=== PATIENT | male | born 1980 | race American Indian/Alaskan Native ===

== ENCOUNTER 2019-04-02 20:29 | Emergency (ER) | payer OTHER, SELFPAY ==
[2019-04-02 20:37] VITALS: BP 150/99; PULSE 113; RESP 20; TEMP 37.1; O2SAT 98; BMI 32.5
--- NOTE | 2019-04-02 20:39 | ED_ITS ---
HPI - Abdominal Pain <DAIANA Paul - Last Filed: 04/02/19 20:54> General Chief Complaint: Abdominal Pain Stated Complaint: lower right abdominal pain Time Seen by Provider: 04/02/19 20:37 Source: patient Mode of arrival: Ambulatory Limitations: no limitations History of Present Illness HPI narrative: 38-year-old male who smokes tabacco, presents emergency department complaining of right lower quadrant abdominal pain starting today. He states last week and a few times this week he had intermittent right flank pain that resolved. 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 He states the pain is a dull aching 7/10 that is worse with movement, walking, and pressing on the area. He denies any fevers, chills, nausea, vomiting, diarrhea, history of abdominal disease or surgeries, chest pain, shortness of breath, history of kidney stones, hematuria, melena, or other concerns. He denies ever having a colonoscopy. Related Data Previous Rx's Medication Instructions Recorded amoxicillin-pot clavulanate 1 tab PO Q12H #20 tab 04/02/19 [Augmentin] Allergies Allergy/AdvReac Type Severity Reaction Status Date / Time No Known Drug Allergies Allergy Verified 04/02/19 20:37 Review of Systems <DAIANA Paul - Last Filed: 04/02/19 20:54> Review of Systems Narrative: REVIEW OF SYSTEMS: GENERAL: Denies fever, chills, malaise, or wt. loss. HENT: No head trauma, sore throat, or dysphagia. EYES: No loss of vision, double vision, eye pain, or irritation. CARDIOVASCULAR: No chest pain, palpitations, or orthopnea. RESPIRATORY: No shortness of breath or cough. GASTROINTESTINAL: Complains of RLQ abdominal pain, see HPI GENITOURINARY: No flank pain, urinary incontinence, hesitancy, frequency, or dysuria. MUSCULOSKELETAL: No pain, weakness, or trauma. INTEGUMENTARY: No rash, lesions, or pruritus. NEURO: No numbness, tingling, memory loss, confusion, or headaches. PSYCH: No behavior or mood changes. Patient History <DAIANA Paul - Last Filed: 04/02/19 20:54> Medical History No significant medical problems (Acute) Social History Smoking Status: Current every day smoker Smoking Status: Current every day smoker alcohol intake frequency: a few times a week Substance Use Type: does not use Exam <DAIANA Paul - Last Filed: 04/02/19 20:54> Initial Vital Signs Initial Vital Signs: Vital Signs Temperature 98.7 F 04/02/19 20:37 Pulse Rate 113 H 04/02/19 20:37 Respiratory Rate 04/02/19 20:37 Blood Pressure 150/99 H 04/02/19 20:37 Pulse Oximetry 98 04/02/19 20:37 PHYSICAL EXAMINATION: GENERAL: Well groomed, alert, and cooperative. Answers questions promptly and appropriately. Vital signs noted. HENT: Normocephalic, atraumatic. Hearing intact. Oral mucosa is pink and moist. EYES: Conjunctiva pink, sclera white, no periorbital swelling. CARDIOVASCULAR: S1 and S2 sounds normal. Regular rate and rhythm, no murmurs, clicks, or bruits. No pedal edema. RESPIRATORY: Normal respiratory rate, trachea midline, airway patent. No stridor, nasal flaring or accessory muscle use. Lungs are clear in all zhao without wheeze, rhonchi, or crackles. GASTROINTESTINAL: Bowel sounds normoactive. Right lower quadrant pain with palp ation, no rebound tenderness, negative Pascual sign. Patient was guarding from pain while getting on and off stretcher. GENITALURINARY: No flank tenderness. MUSCULOSKELETAL: Normal gait and coordination. Equal tone and mass bilaterally. EXTREMITIES: CMS intact, no pedal edema. SKIN: Warm, dry, soft, appropriate color for ethnicity. No lesions, rashes, or wounds to visualized areas. NEURO: Alert and Oriented X 3. Good coordination. No ataxia, or sensory deficits, or cognitive issues. PSYCH: Appropriate affect and mood. <Dang Ordaz DO - Last Filed: 04/03/19 01:16> Initial Vital Signs Initial Vital Signs: Vital Signs Temperature 98.7 F 04/02/19 20:37 Pulse Rate 113 H 04/02/19 20:37 Respiratory Rate 04/02/19 20:37 Blood Pressure 150/99 H 04/02/19 20:37 Pulse Oximetry 98 04/02/19 20:37 Course <Marimar SpearsDAIANA - Last Filed: 04/02/19 20:54> Orders Ordered: ED Orders 04/02/19 20:38 CT abdomen pelvis w con Stat 04/02/19 20:45 Complete Blood Count AUTO DIFF Stat Comprehensive Metabolic Panel Stat Lipase Stat Partial Thromboplastin Time Stat Prothrombin Time INR Stat Discontinued Medications Hydrocodone Bitart/Acetaminophen (Vicodin 5/325 Prepack) 1 bottle MISC SEEINSTR ONE Stop: 04/02/19 22:28 Last Admin: 04/02/19 22:33 Dose: 1 bottle Documented by: RICKIE Amoxicillin/Clavulanate Potassium (Augmentin 875-125 Mg) 1 tab PO NOW ONE Stop: 04/02/19 22:28 Last Admin: 04/02/19 22:34 Dose: 1 tab Documented by: RICKIE Amoxicillin/Clavulanate Potassium (Augmentin 875-125 Mg) 1 tab PO NOW ONE Stop: 04/02/19 22:28 Last Admin: 04/02/19 22:34 Dose: 1 tab Documented by: RICKIE Sodium Chloride (Normal Saline 0.9%) 1,000 mls @ 1,000 mls/hr IV BOLUS ONE Stop: 04/02/19 21:37 Last Infusion: 04/02/19 22:38 Dose: 0 mls/hr Documented by: Admin: 04/02/19 20:52 Dose: 1,000 mls/hr Documented by: RICKIE Ketorolac Tromethamine (Toradol) 30 mg IV NOW ONE Stop: 04/02/19 20:48 Last Admin: 04/02/19 20:54 Dose: 30 mg Documented by: RICKIE Vital Signs Vital signs: Vital Signs - 8 hr 04/02/19 20:37 04/02/19 21:00 04/02/19 22:06 Temperature 98.7 F Pulse Rate 113 H 97 H 87 Respiratory Rate 20 23 12 Blood Pressure 150/99 H Blood Pressure [Left Arm] 128/106 H 126/82 Pulse Oximetry 98 99 100 04/02/19 22:31 Temperature Pulse Rate 89 Respiratory Rate 16 Blood Pressure Blood Pressure [Left Arm] 125/85 Pulse Oximetry 100 <Dang Ordaz DO - Last Filed: 04/03/19 01:16> Orders Ordered: ED Orders 04/02/19 20:38 CT abdomen pelvis w con Stat 04/02/19 20:45 Complete Blood Count AUTO DIFF Stat Comprehensive Metabolic Panel Stat Lipase Stat Partial Thromboplastin Time Stat Prothrombin Time INR Stat Discontinued Medications Hydrocodone Bitart/Acetaminophen (Vicodin 5/325 Prepack) 1 bottle MISC SEEINSTR ONE Stop: 04/02/19 22:28 Last Admin: 04/02/19 22:33 Dose: 1 bottle Documented by: RICKIE Amoxicillin/Clavulanate Potassium (Augmentin 875-125 Mg) 1 tab PO NOW ONE Stop: 04/02/19 22:28 Last Admin: 04/02/19 22:34 Dose: 1 tab Documented by: RICKIE Amoxicillin/Clavulanate Potassium (Augmentin 875-125 Mg) 1 tab PO NOW ONE Stop: 04/02/19 22:28 Last Admin: 04/02/19 22:34 Dose: 1 tab Documented by: RICKIE Sodium Chloride (Normal Saline 0.9%) 1,000 mls @ 1,000 mls/hr IV BOLUS ONE Stop: 04/02/19 21:37 Last Infusion: 04/02/19 22:38 Dose: 0 mls/hr Documented by: Admin: 04/02/19 20:52 Dose: 1,000 mls/hr Documented by: RICKIE Ketorolac Tromethamine (Toradol) 30 mg IV NOW ONE Stop: 04/02/19 20:48 Last Admin: 04/02/19 20:54 Dose: 30 mg Documented by: RICKIE Vital Signs Vital signs: Vital Signs - 8 hr 04/02/19 20:37 04/02/19 21:00 04/02/19 22:06 Temperature 98.7 F Pulse Rate 113 H 97 H 87 Respiratory Rate 20 23 12 Blood Pressure 150/99 H Blood Pressure [Left Arm] 128/106 H 126/82 Pulse Oximetry 98 99 100 04/02/19 22:31 Temperature Pulse Rate 89 Respiratory Rate 16 Blood Pressure Blood Pressure [Left Arm] 125/85 Pulse Oximetry 100 MDM - Abdominal Pain <DAIANA Paul - Last Filed: 04/02/19 20:54> Lab Data Result diagrams: 04/02/19 20:45 04/02/19 20:45 Labs: Lab Results 04/02/19 04/02/19 04/02/19 Range/Units 20:45 20:45 20:45 WBC 9.2 (4.5-11.0) X10^3/uL RBC 4.97 (4.5-5.9) X10^6/uL Hgb 15.6 (13.5-17.5) g/dL Hct 44.8 (41-53) % MCV 90.2 (80-100) fL MCH 31.4 (26-34) PG MCHC 34.8 (30-36) % RDW 13.3 (11.6-14.8) % Plt Count 234 (150-400) X10^3/uL Neut % (Auto) 70.4 (50-75) % Lymph % (Auto) 19.5 L (25-40) % Woods % (Auto) 7.6 (3-14) % Eos % (Auto) 1.5 L (2-4) % Baso % (Auto) 1.0 (0-2) % Neut # (Auto) 6500 (6841-3979) /uL Lymph # (Auto) 1800 (1043-5783) /uL Woods # (Auto) 700 (0-900) /uL Eos # (Auto) 100 (0-450) /uL Baso # (Auto) 100 (0-100) /uL PT 11.2 (10.1-12.7) SECONDS INR 1.0 (0.9-1.3) APTT 31 (26.4-36.2) SECONDS Sodium 139 (137-145) mmol/L Potassium 4.2 (3.4-5.1) mmol/L Chloride 103 (98-107) mmol/L Carbon Dioxide 27 (22-32) mmol/L BUN 12 (9-20) mg/dL Creatinine 0.60 L (0.66-1.25) mg/dL Estimated GFR > 60.0 (>60) mL/min BUN/Creatinine Ratio 20.0 (6-22) Glucose 91 (70-100) mg/dL Calcium 9.3 (8.4-10.2) mg/dL Total Bilirubin 0.5 (0.2-1.3) mg/dL AST 28 (17-59) IU/L ALT 32 (<50) IU/L Alkaline Phosphatase 98 (38-126) U/L Total Protein 8.0 (6.3-8.2) g/dL Albumin 4.4 (3.5-5.0) g/dL Globulin 3.6 (1.7-4.1) g/dL Albumin/Globulin Ratio 1.2 (1.0-2.8) Lipase 84 (23-300) U/L <Dang Ordaz, DO - Last Filed: 04/03/19 01:16> Lab Data Attestation: I reviewed the patient's lab results. Labs: Lab Results 04/02/19 04/02/19 04/02/19 Range/Units 20:45 20:45 20:45 WBC 9.2 (4.5-11.0) X10^3/uL RBC 4.97 (4.5-5.9) X10^6/uL Hgb 15.6 (13.5-17.5) g/dL Hct 44.8 (41-53) % MCV 90.2 (80-100) fL MCH 31.4 (26-34) PG MCHC 34.8 (30-36) % RDW 13.3 (11.6-14.8) % Plt Count 234 (150-400) X10^3/uL Neut % (Auto) 70.4 (50-75) % Lymph % (Auto) 19.5 L (25-40) % Woods % (Auto) 7.6 (3-14) % Eos % (Auto) 1.5 L (2-4) % Baso % (Auto) 1.0 (0-2) % Neut # (Auto) 6500 (7733-8797) /uL Lymph # (Auto) 1800 (7534-5251) /uL Woods # (Auto) 700 (0-900) /uL Eos # (Auto) 100 (0-450) /uL Baso # (Auto) 100 (0-100) /uL PT 11.2 (10.1-12.7) SECONDS INR 1.0 (0.9-1.3) APTT 31 (26.4-36.2) SECONDS Sodium 139 (137-145) mmol/L Potassium 4.2 (3.4-5.1) mmol/L Chloride 103 (98-107) mmol/L Carbon Dioxide 27 (22-32) mmol/L BUN 12 (9-20) mg/dL Creatinine 0.60 L (0.66-1.25) mg/dL Estimated GFR > 60.0 (>60) mL/min BUN/Creatinine Ratio 20.0 (6-22) Glucose 91 (70-100) mg/dL Calcium 9.3 (8.4-10.2) mg/dL Total Bilirubin 0.5 (0.2-1.3) mg/dL AST 28 (17-59) IU/L ALT 32 (<50) IU/L Alkaline Phosphatase 98 (38-126) U/L Total Protein 8.0 (6.3-8.2) g/dL Albumin 4.4 (3.5-5.0) g/dL Globulin 3.6 (1.7-4.1) g/dL Albumin/Globulin Ratio 1.2 (1.0-2.8) Lipase 84 (23-300) U/L Imaging Data CT scan - abdomen/pelvis: Radiologist's Impression: [place] [address] CT Scan Report Signed Patient: David Rodriguez#: [id number] : 1980Acct:[id number] Age/Sex: 38 / MDate of Service: 04/02/19 Loc: ED Accession Number: [id number] Procedure: CT abdomen pelvis w con Ordering Provider: Marimar Spears PROCEDURE: CT ABDOMEN PELVIS W CON INDICATIONS: RLQ pain, intermittent R flank pain before RLQ pain TECHNIQUE: After the administration of intravenous contrast, 5 mm thick sections acquired from the diaphragm to the symphysis. 5 mm coronal and sagittal reformats were acquired. For radiation dose reduction, the following was used: automated exposure control, adjustment of mA and/or kV according to patient size. COMPARISON: None. FINDINGS: Image quality: Excellent. ABDOMEN: Lung bases: Lung bases are clear. Heart size is normal. Solid organs: Liver is normal in size and enhancemen. Hepatic steatosis is seen. Gallbladder is within normal limits. Biliary system is non dilated. Pancreas enhances normally. Spleen is normal in size and enhancement. No adrenal nodules. Kidneys demonstrate normal size and enhancement, without hydronephrosis. Peritoneum and bowel: There is no bowel obstruction. Diverticular disease involving ascending colon is seen with pericolonic fat stranding and wall thickening suggestive of diverticulitis involving ascending colon. Appendix is visualized and is within normal limits. There is no free fluid or free air. No other area of abnormal bowel wall thickening. Nodes and vessels: No retroperitoneal or mesenteric adenopathy by size criteria. Aorta and inferior vena cava are normal in size. Miscellaneous: No ventral hernias. PELVIS: Genitourinary: Bladder wall thickness is normal. Miscellaneous: No inguinal hernias or adenopathy. Bones: No suspicious bony lesions. No vertebral body compression fractures. IMPRESSION: 1. Finding is suggestive of acute diverticulitis involving proximal ascending colon near ileocecal junction. No abscess collection. No free fluid or free air. 2. Normal appendix. No bowel obstruction. 3. Hepatic steatosis. Dictated by: Milton Mora M.D. on 04/02/2019 at 21:58 Approved by: Milton Mora M.D. on 04/02/2019 at 22:01 [facility] Narrative Medical decision making narrative: Patient signed out to myself by TOMASZ Spears, patient comes in with right lower quadrant pain that started in the last 12 hours. Patient does appear uncomfortable on exam. Patient's labs show, normal CBC, CMP and coags. CT of abdomen pelvis shows diverticulitis colon near the ileocecal junction with no abscess, no free fluid or free air. A normal appendix. Patient does have hepatic steatosis. Discussed with patient plan for oral antibiotics as he does not show any signs of sepsis or changes on his imaging suggesting need for inpatient hospitalization. Short course of narcotics with a prepack of [place]. And patient to return if worsening symptoms, strict return precautions were discussed with patient and he is agreeable. He is feeling somewhat better after Toradol. Discharge Plan Departure Patient Disposition: Home Clinical Impression: Diverticulitis Discharge Date/Time: 04/02/19 22:49 Instructions: DI for Diverticulitis Activity Restrictions/Additional Instructions: Follow up in 3-5 days for recheck if your symptoms are not resolving. Take antibiotics until completely gone. Take next dose of of antibiotics 12 hours after your first dose. Take pain medication as prescribed, this medication can make you sleepy do not drive, perform hazardous activities or make any major decisions while taking it. Return to the ER for fevers greater 100.4 F, rapidly worsening pain in her abdomen, flank or chest, lightheadedness, passing out, persistent vomiting, black or bloody stools or other new or concerning symptoms. Prescriptions: New amoxicillin-pot clavulanate [Augmentin] 875-125 mg tablet 1 tab PO Q12H Qty: 20 RF: 0
[2019-04-02] MEDS: SODIUM CHLORIDE 0.9% 1,000 ML 1000 ML IV (20:52)
[2019-04-02 20:54] LABS: Add Manual Diff / Slide Review NO; Basophils Absolute Auto 100 /uL (0-100); Eosinophils Absolute Auto 100 /uL (0-450); Eosinophils Percent Auto 1.5 % (2-4); Hematocrit 44.8 % (41-53); Hemoglobin 15.6 g/dL (13.5-17.5); Lymphocytes Absolute Auto 1800 /uL (1100-4500); Lymphocytes Percent Auto 19.5 % (25-40); Mean Corpuscular HGB Conc 34.8 % (30-36); Mean Corpuscular Hemoglobin 31.4 PG (26-34); Mean Corpuscular Volume 90.2 fL (80-100); Monocytes Absolute Auto 700 /uL (0-900); Monocytes Percent Auto 7.6 % (3-14); Neutrophils Absolute Auto 6500 /uL (1500-7000); Neutrophils Percent Auto 70.4 % (50-75); Platelet Count 234 X10^3/uL (150-400); Red Blood Cell Count 4.97 X10^6/uL (4.5-5.9); Red Cell Distribution Width 13.3 % (11.6-14.8); White Blood Cell Count 9.2 X10^3/uL (4.5-11.0)
[2019-04-02] MEDS: KETOROLAC 60 MG/2 ML VIAL 30 MG IV (20:54)
[2019-04-02 21:00] VITALS: BP 128/106; PULSE 97; RESP 23; O2SAT 99
[2019-04-02 21:01] LABS: Prothrombin Time 11.2 SECONDS (10.1-12.7)
[2019-04-02 21:04] LABS: PTT Partial Thromboplastin Tim 31 SECONDS (26.4-36.2)
[2019-04-02 21:14] LABS: Alanine Aminotransferase 32 IU/L (<50); Albumin 4.4 g/dL (3.5-5.0); Albumin Globulin Ratio 1.2 (1.0-2.8); Alkaline Phosphatase 98 U/L (38-126); Aspartate Aminotransferase 28 IU/L (17-59); Bilirubin Total 0.5 mg/dL (0.2-1.3); Blood Urea Nitrogen 12 mg/dL (9-20); Calcium 9.3 mg/dL (8.4-10.2); Carbon Dioxide 27 mmol/L (22-32); Chloride 103 mmol/L (98-107); Estimated Glomerular Filt Rate > 60.0 mL/min (>60); Globulin 3.6 g/dL (1.7-4.1); Glucose 91 mg/dL (70-100); HEMOLYSIS < 15 (0-50); Potassium 4.2 mmol/L (3.4-5.1); Sodium 139 mmol/L (137-145)
[2019-04-02 21:16] LABS: Lipase 84 U/L (23-300)
[2019-04-02 22:06] VITALS: BP 126/82; PULSE 87; RESP 12; O2SAT 100
[2019-04-02 22:31] VITALS: BP 125/85; PULSE 89; RESP 16; O2SAT 100
[2019-04-02] MEDS: HYDROCODONE/ACET 5/325 PREPACK 1 BOTTLE MISC (22:33)
[2019-04-02] MEDS: AMOXICILLIN/CLAV 875/125 MG 1 TAB PO ×2 (22:34)
== END 2019-04-02 22:49 | disposition home or self-care (01) ==
PROVIDERS: Nurse Practitioner; Emergency Provider Emergency Medicine
DX: K57.92 Diverticulitis of intestine, part unspecified, without perforation or abscess without bleeding (principal); K76.0 Fatty (change of) liver, not elsewhere classified
CPT/HCPCS: 36415; 74177; 80053; 83690; 85025; 85610; 85730; 96361; 96374; 99284; J1885; Q9967

== ENCOUNTER 2020-01-30 19:27 | Emergency (ER) | payer SELFPAY ==
[2020-01-30 19:56] VITALS: BP 113/73; PULSE 104; RESP 18; TEMP 36.1; O2SAT 98; BMI 29.9
== END 2020-01-30 22:44 | disposition left against medical advice (07) ==
PROVIDERS: Emergency Provider Emergency Medicine
DX: R07.9 Chest pain, unspecified (principal)
CPT/HCPCS: 93005; 99281

== ENCOUNTER 2020-05-18 19:18 | Emergency (ER) | payer SELFPAY ==
[2020-05-18 19:23] VITALS: BP 133/68; PULSE 94; RESP 16; TEMP 36.1; O2SAT 97; BMI 29.9
--- NOTE | 2020-05-18 19:25 | DI.RAD.S_ITS ---
PROCEDURE: XR ANKLE LT MIN 3V INDICATIONS: rolled ankle, intoxicated TECHNIQUE: 3 views of the ankle were acquired. COMPARISON: None. FINDINGS: Bones: No fractures or dislocations. Ankle mortise is normally aligned. No suspicious bony lesions. Soft tissues: Lateral soft tissue swelling IMPRESSION: Lateral soft tissue swelling. No fracture. If the patient's symptoms do not improve recommend followup radiographs in 10 days to assess for healing sclerosis/occult injury. Dictated by: Rashad Soto M.D. on 05/18/2020 at 19:47 Approved by: Rashad Soto M.D. on 05/18/2020 at 19:48
--- NOTE | 2020-05-19 05:01 | ED.LOWEXIN ---
HPI - Extremity Injury (Lower) General Chief Complaint: Extremity Injury, Lower Stated Complaint: ETOH intoxication, left ankle injury Source: EMS Mode of arrival: EMS Limitations: no limitations History of Present Illness HPI Narrative: Patient left department prior to formal evaluation. Patient was seen initially on arrival with EMS. He is intoxicated but alert and appropriate. Patient was working on his vehicle when he rolled his ankle. He did not have any other trauma or injuries. He is otherwise healthy. Related Data Previous Rx's Medication Instructions Recorded amoxicillin-pot clavulanate 1 tab PO Q12H #20 tab 04/02/19 [Augmentin] Allergies Allergy/AdvReac Type Severity Reaction Status Date / Time No Known Drug Allergies Allergy Verified 04/02/19 20:37 Patient History Medical History (Updated 05/18/20 @ 20:58 by Mendez Gill RN) No significant medical problems Social History Smoking Status: Current every day smoker Smoking Status: Current every day smoker alcohol intake frequency: a few times a week Substance Use Type: does not use Exam Narrative Exam Narrative: GENERAL: Alert and oriented, well-appearing male. Patient appears mildly intoxicated. Initially on gurney and later seated in chair and speaking on his phone. HEENT: Head normocephalic, atraumatic, EOMI, pupils reactive, face symmetric, moist mucous membranes NECK: Supple, full range of motion NEUROLOGICAL: Cranial nerves II through XII grossly intact. Moving all extremities. Initial Vital Signs Initial Vital Signs: Vital Signs Temperature 97 F L 05/18/20 19:23 Pulse Rate 94 H 05/18/20 19:23 Respiratory Rate 16 05/18/20 19:23 Blood Pressure 133/68 05/18/20 19:23 Pulse Oximetry 97 05/18/20 19:23 MDM - Extremity Injury (Lower) Imaging Data Extremity x-ray #1: Radiologist's Impression: [address] [id number] ReportSigned Patient: Davdi Rodriguez#: [id number]: 1980Acct:[id number]/Sex: 39 / MDate of Service: 05/18/20Loc: EDAccession Number: [id number] Procedure: XR ankle LT min 3V Ordering Provider: Dang Ordaz D.O. PROCEDURE: XR ANKLE LT MIN 3V INDICATIONS: rolled ankle, intoxicated TECHNIQUE: 3 views of the ankle were acquired. COMPARISON: None. FINDINGS: Bones: No fractures or dislocations. Ankle mortise is normally aligned. No suspicious bony lesions. Soft tissues: Lateral soft tissue swelling IMPRESSION: Lateral soft tissue swelling. No fracture. If the patient's symptoms do not improve recommend followup radiographs in 10 days to assess for healing sclerosis/occult injury. Dictated by: Rashad Soto M.D. on 05/18/2020 at 19:47 Approved by: Rashad Soto M.D. on 05/18/2020 at 19:48 Discharge Plan Departure Patient Disposition: Left Without Being Seen Clinical Impression: Patient left without being seen
== END 2020-05-18 20:57 | disposition left against medical advice (07) ==
PROVIDERS: Emergency Provider Emergency Medicine
DX: S99.912A Unspecified injury of left ankle, initial encounter (principal); X50.1XXA Overexertion from prolonged static or awkward postures, initial encounter; F10.129 Alcohol abuse with intoxication, unspecified
CPT/HCPCS: 73610; 99283

== ENCOUNTER 2023-11-22 18:47 | Emergency (ER) | payer SELFPAY ==
[2023-11-22 18:56] VITALS: BP 125/69; PULSE 95; RESP 18; TEMP 37.1; O2SAT 97; BMI 27.4
--- NOTE | 2023-11-22 19:10 | CM.SWNOTE ---
ED PUMP INSTALLATION AND SERVICER Assessment Note Patient is 43 y/o male who presents to ED due to concern for seeking ETOH detox. Patient states he walked here. Patient states he has been missing work and he called the crisis line and decided to seek help and come to the ED. Patient endorses hx of SI yesterday, he states that he called his friends and they were a support to him. Patient denies current SI. Patient states I feel like a piece of shit and I want want to take care of my life. PUMP INSTALLATION AND SERVICER enters triage to meet with patient. Patient presents as A/Ox4, calm, cooperative and communicative. Patient denies SI and HI. Patient states that he has been drinking a lot during the week, more than usual because of the holiday weekend. Patient states he drank whiskey, vodka, Tequila and beer. Patient states he usually just drinks 2-3 23 ounce beers a day. Patient endorses hx of anxiety and high heart rate withdrawal symptoms. Patient denies hx of seizures. Patient endorses hx of 2 years of sobriety a couple years ago. Patient states hx of just quitting on his home and through the courts. Patient endorses hx of 6 DUIs 12 years ago. Patient endorses hx of several inpatient rehab stays most recently 10 years ago. Patient denies any current outpatient SIDNEY and MH providers, patient states he has access to [facility] and states that he had it set up in the past but he did not go. Patient denies hx of any other substance use other than cigarette use. Patient endorses that no one knows he is here but would like his fiance to be contacted to let her know (Evonne - Ph. # [phone]) Patient endorses he works for [employer] and they know he is here getting help and are supportive of patient seeking treatment. Patient endorses he is seeking detox treatment. It is the opinion of this PUMP INSTALLATION AND SERVICER that patient is appropriate for and will benefit from detox treatment upon medical clearance. Plan: ED team to seek detox placement for patient upon medical clearance. SURGICAL APPLIANCES SALESPERSON states that she called [facility] and they do not have male beds at this time. ED team to seek detox elsewhere. Jennifer Roberts, SUBCONTRACT MANAGER
[2023-11-22 19:31] LABS: Add Manual Diff / Slide Review NO; Basophils Absolute Auto 100 /uL (0-100); Basophils Percent Auto 2.9 % (0-2); Eosinophils Absolute Auto 100 /uL (0-450); Eosinophils Percent Auto 1.9 % (2-4); Hematocrit 42.2 % (41-53); Hemoglobin 14.3 g/dL (13.5-17.5); Lymphocytes Absolute Auto 2000 /uL (1100-4500); Mean Corpuscular HGB Conc 33.9 % (30-36); Mean Corpuscular Hemoglobin 31.2 PG (26-34); Mean Corpuscular Volume 92.1 fL (80-100); Monocytes Absolute Auto 500 /uL (0-900); Monocytes Percent Auto 10.4 % (3-14); Neutrophils Absolute Auto 2200 /uL (1500-7000); Neutrophils Percent Auto 43.8 % (50-75); Platelet Count 187 X10^3/uL (150-400); Red Blood Cell Count 4.58 X10^6/uL (4.5-5.9); White Blood Cell Count 4.9 X10^3/uL (4.5-11.0)
[2023-11-22 19:39] LABS: UR Morphine/Opiate cutoff 300 Negative (Negative); Ur Creatinine Normal (Normal); Ur Specific Gravity Normal (Normal); Urine Amphetamines Negative (Negative); Urine Barbiturates Negative (Negative); Urine Benzodiazepines Negative (Negative); Urine Cocaine Negative (Negative); Urine MDMA Negative (Negative); Urine Methadone Negative (Negative); Urine Methamphetamines Negative (Negative); Urine Oxycodone Negative (Negative); Urine Phencyclidine Negative (Negative); Urine Tetrahydrocannabinol Negative (Negative); Urine Tricyclic Antidepressant Negative (Negative); Urine pH Normal (Normal)
[2023-11-22 19:48] LABS: Acetaminophen < 10 ug/mL (10-30); Alanine Aminotransferase 31 IU/L (<50); Albumin 4.7 g/dL (3.5-5.0); Albumin Globulin Ratio 1.3 (1.0-2.8); Alkaline Phosphatase 63 U/L (38-126); Aspartate Aminotransferase 37 IU/L (17-59); BUN Creatinine Ratio 7.5 (6-22); Bilirubin Total 0.5 mg/dL (0.2-1.3); Blood Urea Nitrogen 5 mg/dL (9-20); Calcium 9.1 mg/dL (8.4-10.2); Carbon Dioxide 27 mmol/L (22-32); Chloride 101 mmol/L (98-107); Estimated Glomerular Filt Rate > 60 mL/min (>60); Ethanol (ETOH) 284 mg/dL; Globulin 3.7 g/dL (1.7-4.1); Glucose 95 mg/dL (70-100); HEMOLYSIS < 15 (0-50); Potassium 4.3 mmol/L (3.4-5.1); Salicylate < 1.0 mg/dL (<20); Sodium 138 mmol/L (137-145); Total Protein 8.4 g/dL (6.3-8.2)
[2023-11-22 20:13] LABS: Free T4, Direct Thyroxine 0.93 ng/dL (0.78-2.19)
[2023-11-22 20:27] LABS: Thyroid Stimulating Hormone 0.898 uIU/mL (0.47-4.68)
--- NOTE | 2023-11-22 21:29 | ED.ALCOHOL ---
HPI - Alcohol General Chief Complaint: Toxicology Problem Stated Complaint: wants to detox from alcohol Time Seen by Provider: 11/22/23 21:14 Source: patient Mode of arrival: Ambulatory History of Present Illness HPI narrative: Patient is a 43-year-old male history of alcoholism presenting today with some anxiety. He reports that he binge drinks on the weekend pretty heavily. For the last 1 week he has been drinking about 18 beers a day which is abnormal. He typically can cut it back by Sunday and be able to function and go to work and then on Sunday he started drinking pretty heavily again. This week he has been drinking significantly more. He is missed all week of work. His boss needs him back at work. He has no suicidal or homicidal ideations. He has not had previous withdrawal seizures. He does not want detox does not want to be admitted. Needs a work note showing that he was here. He has previously detox himself multiple times he has a system of how he decreases his alcohol use. He reports he just needs a few more days to continue his detoxing process. Related Data Previous Rx's Medication Instructions Recorded amoxicillin 875 mg-potassium 1 tab PO Q12H #20 tabs 04/02/19 clavulanate 125 mg tablet (Augmentin) Allergies Allergy/AdvReac Type Severity Reaction Status Date / Time No Known Drug Allergies Allergy Verified 04/02/19 20:37 Patient History Medical History (Updated 11/22/23 @ 21:33 by Charisma Amaro DO) No significant medical problems Social History Smoking Status: Current every day smoker Smoking Status: Current every day smoker tobacco type: cigarettes alcohol intake frequency: 3 or more drinks per day Alcohol type: beer and hard liquor Substance Use Type: does not use Exam Initial Vital Signs Initial Vital Signs: Vital Signs Temperature 98.7 F 11/22/23 18:56 Pulse Rate 95 H 11/22/23 18:56 Respiratory Rate 18 11/22/23 18:56 Blood Pressure 125/69 11/22/23 18:56 Pulse Oximetry 97 11/22/23 18:56 Oxygen Delivery Method Room Air 11/22/23 18:56 GENERAL: Well-appearing 43-year-old and in [no acute] distress. HEENT: Head atraumatic,EOMI, pupils reactive, face symmetric, [moist] mucous membranes CARDIOVASCULAR: Regular rate and rhythm without murmurs, rubs or gallops. RESPIRATORY: Breath sounds equal bilaterally, no wheezes rales or rhonchi. ABDOMEN: Soft, nontender. Normoactive bowel sounds all 4 quadrants. No guarding or rebound. EXTREMITIES: Normal range of motion, no clubbing or edema. Neurovascularly intact NEUROLOGICAL: Alert and oriented x4.Normal gait and speech. Cranial nerves II through XII grossly intact. No active tremor SKIN: Warm, dry, no laceration, no petechiae, no rashes or lesions. Course Orders Ordered: ED Orders 11/22/23 18:20 Acetaminophen Stat Complete Blood Count AUTO DIFF Stat Comprehensive Metabolic Panel Stat Ethanol (ETOH) Stat Free T4, Direct Thyroxine Stat Salicylate Stat Thyroid Stimulating Hormone Stat 11/22/23 19:10 Consult to [facility] [place] [facility] Stat Urine Drug Screen, Rapid Stat Vital Signs Vital signs: Vital Signs - 8 hr 11/22/23 18:56 11/22/23 21:44 Temperature 98.7 F Pulse Rate 95 H 83 Respiratory Rate 18 18 Blood Pressure 125/69 119/68 Pulse Oximetry 97 96 Oxygen Delivery Method Room Air Room Air MDM - Alcohol Lab Data 11/22/23 18:20 11/22/23 18:20 Labs: Lab Results 11/22/23 11/22/23 Range/Units 18:20 19:10 WBC 4.9 (4.5-11.0) X10^3/uL RBC 4.58 (4.5-5.9) X10^6/uL Hgb 14.3 (13.5-17.5) g/dL Hct 42.2 (41-53) % MCV 92.1 (80-100) fL MCH 31.2 (26-34) PG MCHC 33.9 (30-36) % RDW 14.0 (11.6-14.8) % Plt Count 187 (150-400) X10^3/uL Neut % (Auto) 43.8 L (50-75) % Lymph % (Auto) 41.0 H (25-40) % Valencia % (Auto) 10.4 (3-14) % Eos % (Auto) 1.9 L (2-4) % Baso % (Auto) 2.9 H (0-2) % Neut # (Auto) 2200 (1484-2724) /uL Lymph # (Auto) 2000 (6829-5246) /uL Valencia # (Auto) 500 (0-900) /uL Eos # (Auto) 100 (0-450) /uL Baso # (Auto) 100 (0-100) /uL Sodium 138 (137-145) mmol/L Potassium 4.3 (3.4-5.1) mmol/L Chloride 101 (98-107) mmol/L Carbon Dioxide 27 (22-32) mmol/L BUN 5 L (9-20) mg/dL Creatinine 0.67 (0.66-1.25) mg/dL Estimated GFR > 60 (>60) mL/min BUN/Creatinine Ratio 7.5 (6-22) Glucose 95 (70-100) mg/dL Calcium 9.1 (8.4-10.2) mg/dL Total Bilirubin 0.5 (0.2-1.3) mg/dL AST 37 (17-59) IU/L ALT 31 (<50) IU/L Alkaline Phosphatase 63 (38-126) U/L Total Protein 8.4 H (6.3-8.2) g/dL Albumin 4.7 (3.5-5.0) g/dL Globulin 3.7 (1.7-4.1) g/dL Albumin/Globulin Ratio 1.3 (1.0-2.8) TSH 0.898 (0.47-4.68) uIU/mL Free T4 0.93 (0.78-2.19) ng/dL Salicylates < 1.0 (<20) mg/dL U Opiates 300ng/mL cut Negative (Negative) Ur Oxycodone Screen Negative (Negative) Urine Methadone Screen Negative (Negative) Acetaminophen < 10 (10-30) ug/mL Ur Barbiturates Screen Negative (Negative) U Tricyclic Antidepress Negative (Negative) Ur Phencyclidine Scrn Negative (Negative) Ur Amphetamines Screen Negative (Negative) U Methamphetamines Scrn Negative (Negative) Ur MDMA Scrn (Ecstasy) Negative (Negative) U Benzodiazepines Scrn Negative (Negative) Urine Cocaine Screen Negative (Negative) U Marijuana (THC) Screen Negative (Negative) Urine pH Normal (Normal) Urine Specific Rose Normal (Normal) Ethyl Alcohol 284 H ( - 10) mg/dL Ur Creatinine Normal (Normal) Urine Dip Bedside Urine Glucose Negative Bedside Urine Bilirubin - Negative Bedside Urine Ketone - Negative Urine Specific Rose 1.01 Bedside Urine Occult Blood - Negative Bedside Urine pH 6 Bedside Urine Protein - Negative Bedside Urine Urobilinogen - Negative Bedside Urine Nitrite - Negative Bedside Urine Leukocytes - Negative Esterase MDM Narrative Medical decision making narrative: Patient 43-year-old male known alcoholism presenting today for really needing a work note and detox. He actually does not want to go to detox. He has no suicidal or homicidal ideations. He does have an alcohol level of 284 not actively having tremors but does have some anxiety. He would just like to go home with a work note. Blood work has been reviewed he has no significant elevation of bilirubin liver enzymes no leukocytosis or anemia. Platelets are stable at 187 Drug screen is negative Patient has been evaluated by social work as well. At this time patient is not tachycardic no active tremors would just like to go home with a work note. He has a plan. We discussed that if symptoms worsen he needs to come back to the ED. He understands that detox can lead to and seizures. Discharge Plan Departure Patient Disposition: Home Clinical Impression: Alcohol withdrawal syndrome Instructions: DI for Alcohol Use Disorder Activity Restrictions/Additional Instructions: *You have been diagnosed with alcoholism *What to do: At this time please continue to decrease your alcohol use. You may require detox. Alcohol withdrawal can lead to and seizures. You are come back to the emergency department at any time *Continue to take medications as directed *Follow up with your primary care provider in 2-3 days or call [phone] *Return to ER if you should have increasing shaking confusion hallucination chest pain or any new, worsening or concerning symptoms Prescriptions: No Action amoxicillin-pot clavulanate [Augmentin] 875-125 mg tablet 1 tab PO Q12H Qty: 20 0RF Stand Alone Forms: Patient Portal/API, Work Release Note
[2023-11-22 21:44] VITALS: BP 119/68; PULSE 83; RESP 18; O2SAT 96
== END 2023-11-22 21:49 | disposition home or self-care (01) ==
PROVIDERS: Emergency Provider Emergency Medicine
DX: F10.239 Alcohol dependence with withdrawal, unspecified (principal); Y90.8 Blood alcohol level of 240 mg/100 ml or more
CPT/HCPCS: 36415; 80053; 80305; 80320; 80329; 81003; 84439; 84443; 85025; 99283; G0480

== ENCOUNTER 2024-11-27 17:55 | Inpatient (IN) | payer MEDICAID, SELFPAY ==
[2024-11-27] VITALS (8 sets, daily range): BP systolic 107–120; BP diastolic 54–79; PULSE 115–128; RESP 18–24; TEMP 36.4–36.9; O2SAT 95–99; BMI 30.9; BMI 29.5
--- NOTE | 2024-11-27 18:23 | EKG_ITS ---
[place] [address] [place] [id number] Test Date: 2024-11-27 Pat Name: David Rodriguez Department: [facility] Room: Gender: Male [employer]: : 1980 Requested By: Order Number: [id number] Reading MD: Fareed Garcia Measurements Intervals [place] Rate: 121 P: 34 ND: 136 QRS: 0 QRSD: 84 T: 40 QT: 318 QTc: 451 Interpretive Statements Sinus tachycardia Electronically Signed On 11-28-2024 7:28:16 PDT by Fareed Garcia
[2024-11-27 18:45] LABS: Hematocrit 37.3 % (41-53); Hemoglobin 12.7 g/dL (13.5-17.5); Mean Corpuscular HGB Conc 34.0 % (30-36); Mean Corpuscular Hemoglobin 33.2 PG (26-34); Mean Corpuscular Volume 97.5 fL (80-100); Platelet Count 140 X10^3/uL (150-400)
[2024-11-27 18:49] LABS: Add Manual Diff / Slide Review YES
--- NOTE | 2024-11-27 18:55 | CM.SWNOTE ---
ED GROUP HOME SUPERVISOR Assessment Note: GROUP HOME SUPERVISOR - Contract Negotiation Manager Assessment GROUP HOME SUPERVISOR/Contract Negotiation Manager Assessment Time Spent with Patient Start date 11/27/24 Visit Start Time 18:20 End date 11/27/24 Visit End Time 18:30 Total time Care 10 minutes Management spent on patient visit-in minutes Substance Abuse Screening Include Onset, Duration, Intensity Presenting Problem Patient presents to the ED requesting detox from ETOH. Precipitating Event( Patient states he has been experiencing nausea, dry s) heaving, and diarrhea. Patient explains he has had very little energy and sleeps most of the day. Patient explains he has not been able to keep anything down for the past couple of weeks. Patient explains he drinks approximately (3) 24oz cans of Malt Liquor every night, he says he has been drinking everyday for the past 10 years. His last drink was 11/27/24 at approximately 1700. Patient Strengths Patient is communicative and seeking help. Current Behavioral None established, states he was seeing a MH counselor Health Provider(s) at [facility] about two months ago and Include Facility, he stopped seeing them due to work. Provider, Ph. # Family Hx of None reported. Behavioral Abuse Rehab Facilities? (( No rehab reported. States he went to [facility] twice Date(s), Location(s) , last time was a couple of months ago. ) History of Denies history of seizures or withdrawal symptoms. Withdrawal? Seizures ? Longest Period of 2 years. Sobriety Psychosocial Patient is a 44yo male, resident of [place] with his information & girlfriend and her two children. Support Systems School/Work Patient states he is currently not working due to drinking. Legal Concerns Legal Matters - None reported. Outstanding Issues Mental Status Orientation (Person/ AOx3 Place/Time) Stated Mood Sick Affect (Congruent Dythymic, congruent with mood with Mood?) Thought Content - None reported, none identified during assessment. Specify/Describe Obsessions, Delusions, Hallucinations Thought Processes ( Logical, coherent Logical-Coherent- Goal Directed- Detailed-Tangential- Circumstantial- Logical-Disorganized -Thought Blocking) Speech (Normal-Slow- Normal, compulsive Iuapaqy-Wulbm-Hvjm- Loud-Pressured) Motor (Normal- Normal Xpfwhtejv-Qpni-Ypust ) Insight (Good-Fair- Fair Poor/Limited) Judgement (Good-Fair Fair -Poor/Limited) Impulse Control ( Impaired Adequate-Impaired) Memory (Immediate- Remote Recent-Remote, Impaired-Intact) Concentration ( Intact Intact-Impaired) Attention (Intact- Intact Impaired) Behavior ( Appropriate Appropriate- Inappropriate) Additional Comment Patient is calm, cooperative and communicative during assessment. Risk Assessment Suicidal Ideation ( No Plan) Homicidal Ideation ( No Plan) Intervention Intervention Reviewed chart and discussed with ED Provider pt's medical status and discharge needs. It is identified that pt presented in 11/2023 with similar symptoms and they were seeking detox placement. ED GROUP HOME SUPERVISOR meets with patient in triage. Patient endorses having nausea and diarrhea the last few weeks, minimal food intake and only intaking alcohol to help me feel better. Patient states there are no stressors in his life at this time other than being unemployed and his compulsive drinking. ED GROUP HOME SUPERVISOR and patient discuss goals of care. Patient states he is seeking detox placement but is also concerned for his medical status. At this time, it is the opinion of this GROUP HOME SUPERVISOR that patient would benefit from inpatient detox for ETOH use. GROUP HOME SUPERVISOR informs ED provider, Dr. Ordaz, who indicates agreement. GROUP HOME SUPERVISOR informs STACI Akers. Plan RA Plan Once patient is medically clear, ED staff will attempt to find inpatient detox placement for patient. JEREMIAH Cisneros
[2024-11-27 19:00] LABS: Atypical Lymphocytes Percent 6.0 %; Band Neutrophils Percent 29.0 % (3-7); Eosinophils Percent Manual 1.0 % (2-4); Lymphocytes Percent Manual 6.0 % (25-45); Monocytes Percent Manual 4.0 % (2-11); Neutrophils Absolute Manual 16932 /uL (3000-5900); Segmented Neutrophils Percent 54.0 % (38-70); Total Cells Counted 100
[2024-11-27 19:01] LABS: Macrocytosis 1+; Toxic Granulation Present; Toxic Vacuolation Pres
--- NOTE | 2024-11-27 19:01 | CM.DANOTE ---
ED SPRAY RIG OPERATOR DCP Assessment Note: Pt is a 44yo male, resident of [place], is seen in the ED for ETOH detox. Pt lives in a house with his significant other and her two children. Pt's Primary Care Provider is unknown and insurance is Medicaid. Reviewed chart and discussed with multidisciplinary team pt's medical status and initial discharge needs. ED SPRAY RIG OPERATOR met w/patient at bedside; introduced self and role. Patient was found in bed, alert and oriented, cooperative with assessment. Pt confirmed living situation and good support in girlfriend, states is mainly independent at baseline. Pt expressed preference in ETOH detox, states he has a history of [facility] in the past. Plan: Medical clearance to continue in ED, anticipating detox placement when medically cleared. CM team will follow closely for coordination of discharge plans. Yeimy Villafuerte [facility] Discharge Planning/Care Management CM Discharge Assessment Start: 11/27/24 18:56 Freq: Status: Active Protocol: Document 11/27/24 18:57 MW (Rec: 11/27/24 19:01 MW [email or web address]) Discharge Planning Assessment Assigned Discharge VICKY Gaffney [employer] Insurance Medicaid DPOA/Assigned Evonne Viky, Significant Other Designee Name Contact Information [phone] Advance Directives? No Prior Living House Arrangements Household Members significant other,children Type of Drives own vehicle transporation used prior to admit Independent with ADL Yes 's Is patient alert and Yes oriented? Patient/Family Drug/Alcohol Rehab Preference Discharge Plan Drug Rehabilitation Review Status In Process Please Provide Date 11/27/24 Initial DC Assessment Was Performed Next Review Type Continued Stay Review SPRAY RIG OPERATOR - Reimbursement Consultant Assessment Start: 11/27/24 18:31 Freq: Status: Active Protocol: Document 11/27/24 18:31 MW (Rec: 11/27/24 18:55 MW [id number]) SPRAY RIG OPERATOR/Reimbursement Consultant Assessment Start date 11/27/24 Visit Start Time 18:20 End date 11/27/24 Visit End Time 18:30 Total time Care 10 minutes Management spent on patient visit-in minutes Presenting Problem Patient presents to the ED requesting detox from ETOH. Precipitating Event( Patient states he has been experiencing nausea, dry s) heaving, and diarrhea. Patient explains he has had very little energy and sleeps most of the day. Patient explains he has not been able to keep anything down for the past couple of weeks. Patient explains he drinks approximately (3) 24oz cans of Malt Liquor every night, he says he has been drinking everyday for the past 10 years. His last drink was 11/27/24 at approximately 1700. Patient Strengths Patient is communicative and seeking help. Current Behavioral None established, states he was seeing a MH counselor Health Provider(s) at [facility] about two months ago and Include Facility, he stopped seeing them due to work. Provider, Ph. # Family Hx of None reported. Behavioral Abuse Rehab Facilities? (( No rehab reported. States he went to [facility] twice Date(s), Location(s) , last time was a couple of months ago. ) History of Denies history of seizures or withdrawal symptoms. Withdrawal? Seizures ? Longest Period of 2 years. Sobriety Psychosocial Patient is a 44yo male, resident of [place] with his information & girlfriend and her two children. Support Systems School/Work Patient states he is currently not working due to drinking. Legal Matters - None reported. Outstanding Issues Orientation (Person/ AOx3 Place/Time) Stated Mood Sick Affect (Congruent Dythymic, congruent with mood with Mood?) Thought Content - None reported, none identified during assessment. Specify/Describe Obsessions, Delusions, Hallucinations Thought Processes ( Logical, coherent Logical-Coherent- Goal Directed- Detailed-Tangential- Circumstantial- Logical-Disorganized -Thought Blocking) Speech (Normal-Slow- Normal, compulsive Tcqobma-Mifpb-Hvtq- Loud-Pressured) Motor (Normal- Normal Fxpvdlemd-Wnmx-Vkuud ) Insight (Good-Fair- Fair Poor/Limited) Judgement (Good-Fair Fair -Poor/Limited) Impulse Control ( Impaired Adequate-Impaired) Memory (Immediate- Remote Recent-Remote, Impaired-Intact) Concentration ( Intact Intact-Impaired) Attention (Intact- Intact Impaired) Behavior ( Appropriate Appropriate- Inappropriate) Additional Comment Patient is calm, cooperative and communicative during assessment. Suicidal Ideation ( No Plan) Homicidal Ideation ( No Plan) Intervention Reviewed chart and discussed with ED Provider pt's medical status and discharge needs. It is identified that pt presented in 11/2023 with similar symptoms and they were seeking detox placement. ED SPRAY RIG OPERATOR meets with patient in triage. Patient endorses having nausea and diarrhea the last few weeks, minimal food intake and only intaking alcohol to help me feel better. Patient states there are no stressors in his life at this time other than being unemployed and his compulsive drinking. ED SPRAY RIG OPERATOR and patient discuss goals of care. Patient states he is seeking detox placement but is also concerned for his medical status. At this time, it is the opinion of this SPRAY RIG OPERATOR that patient would benefit from inpatient detox for ETOH use . SPRAY RIG OPERATOR informs ED provider, Dr. Ordaz, who indicates agreement. SPRAY RIG OPERATOR informs STACI Akers. RA Plan Once patient is medically clear, ED staff will attempt to find inpatient detox placement for patient.
--- NOTE | 2024-11-27 19:13 | DI.RAD.S_ITS ---
PROCEDURE: XR CHEST 2V INDICATIONS: WBC 20k unclear cause TECHNIQUE: 2 views of the chest were acquired. COMPARISON: None. FINDINGS AND IMPRESSION: Low lung volumes. No airspace consolidation or pleural effusions. Normal heart size. Degenerative osseous changes. Dictated by: Dann Cox M.D. on 11/27/2024 at 20:08 Approved by: Dann Cox M.D. on 11/27/2024 at 20:09
[2024-11-27 19:14] LABS: Alanine Aminotransferase 118 IU/L (<50); Albumin 3.5 g/dL (3.5-5.0); Albumin Globulin Ratio 0.8 (1.0-2.8); Alkaline Phosphatase 349 U/L (38-126); Ammonia (NH3) 26 umol/L (9-30); Blood Urea Nitrogen 3 mg/dL (9-20); Calcium 7.8 mg/dL (8.4-10.2); Carbon Dioxide 20 mmol/L (22-32); Chloride 80 mmol/L (98-107); Estimated Glomerular Filt Rate > 60 mL/min (>60); Globulin 4.3 g/dL (1.7-4.1); Glucose 107 mg/dL (70-99); HEMOLYSIS < 15 (0-50); Potassium 4.0 mmol/L (3.4-5.1); Total Protein 7.8 g/dL (6.3-8.2)
[2024-11-27 19:15] LABS: Sodium 116 mmol/L (137-145)
[2024-11-27] MEDS: SODIUM CHLORIDE 0.9% 1,000 ML 1000 ML IV (19:16)
--- NOTE | 2024-11-27 19:19 | ED_ITS ---
HPI - General Adult General Chief complaint: Toxicology Problem Stated complaint: N/V/D Time Seen by Provider: 11/27/24 18:55 Source: patient Mode of arrival: Ambulatory History of Present Illness HPI narrative: 44-year-old male with history of ongoing alcohol abuse, drinks daily for many years, last drink earlier today, having one-week duration of loose stools, increasing central abdominal discomfort. Also admits to generalized weakness. No black or red stools. Has had nausea with nonbloody emesis. Denies cough or shortness of breath. Denies painful or frequent urination. It does not recall history of fluid in the belly, or any procedures to take fluid out from the abdomen. He has not recognize diagnosis of cirrhosis liver disease. Related Data Home Medications ?Medication ?Instructions ?Recorded ?Confirmed clonidine HCl 0.1 mg tablet 0.1 mg PO BID 11/27/2402/10 gabapentin 300 mg capsule 300 mg PO 3XD 11/27/2411/27 hydroxyzine HCl 50 mg tablet 50 mg PO 3XD PRN anxiety 11/27/24 11/27/24 Allergies Allergy/AdvReac Type Severity Reaction Status Date / Time No Known Drug Allergies Allergy Verified 11/27/24 18:21 Patient History Medical History (Updated 11/27/24 @ 21:07 by Salvador Cruz MD) No significant medical problems Social History household members: significant other and children Smoking Status: Former smoker alcohol intake: current Smoking Status: Former smoker tobacco type: cigarettes alcohol intake frequency: 3 or more drinks per day Alcohol type: beer and hard liquor Exam Narrative Exam Narrative: GENERAL: Well-developed patient, in mild distress. HEAD: Atraumatic. Normocephalic. EYES: Pupils equal round and reactive. Extraocular motions intact. Scleral icterus present. No injection or drainage. ENT: Nose without bleeding, purulent drainage. Throat without erythema, tonsillar hypertrophy or exudate. Airway patent. NECK: Trachea midline. Non tender CARDIOVASCULAR: Regular rate and rhythm without murmurs, gallops, or rubs. RESPIRATORY: Clear to auscultation. Breath sounds equal bilaterally. No wheezes, rales, or rhonchi. GASTROINTESTINAL: Abdomen soft, mild epigastric tenderness, nondistended, no obvious central tympany or fluid wave. EXTREMITIES: No edema or joint tenderness. BACK: Nontender without deformity or crepitance. No flank tenderness. NEURO: AOx3. Motor functions grossly nonfocal. SKIN: No rash or erythema of visible areas Initial Vital Signs Initial Vital Signs: Vital Signs Temperature 97.5 F L 11/27/24 18:17 Pulse Rate 128 H 11/27/24 18:17 Respiratory Rate 18 11/27/24 18:17 Blood Pressure 120/74 11/27/24 18:17 Pulse Oximetry 96 11/27/24 18:17 Oxygen Delivery Method Room Air 11/27/24 18:17 Course Orders Ordered: ED Orders 11/27/24 20:25 GI Panel (Film Array) Stat 11/27/24 20:27 Ictotest Urine Stat Osmolality Urine Stat Sodium Urine Random Stat Urinalysis and Microscopic Stat Urine Drug Screen, Rapid Stat 11/27/24 22:45 Osmolality, Serum Stat 11/27/24 23:05 Blood Culture Stat Albuterol (Albuterol 2.5 Mg/3 Ml Neb (Adult)) 2.5 mg INH [id number] PRN PRN Reason: Dyspnea Famotidine (Famotidine 20 Mg/2 Ml Vial) 20 mg IV BID [facility] Last Admin: 11/27/24 21:10 Dose: 20 mg Documented By: NORA Folic Acid (Folic Acid 1 Mg Tablet) 1 mg PO DAILY [facility] Hydralazine HCl (Hydralazine 20 Mg/Ml Vial) 10 mg IV Q6HR PRN PRN Reason: SBP>= 160 or DBP >=110 Sodium Chloride (Normal Saline 0.9%) 1,000 mls @ 100 mls/hr IV CONT [facility] Last Admin: 11/27/24 22:26 Dose: 100 mls/hr Documented By: GUANACO Metronidazole (Flagyl) 500 mg in 100 mls @ 100 mls/hr IV Q8H [facility] Last Infusion: 11/27/24 23:48 Dose: Infused Documented By: Admin: 11/27/24 22:28 Dose: 100 mls/hr Documented By: GUANACO Ciprofloxacin (Cipro) 400 mg in 200 mls @ 200 mls/hr IV Q12HR [facility] Last Infusion: 11/28/24 01:13 Dose: Infused Documented By: Admin: 11/28/24 00:13 Dose: Not Given Documented By: Admin: 11/28/24 00:13 Dose: 200 mls/hr Documented By: GUANACO dexmedeTOMIDine in 0.9 % NaCL (Precedex) 400 mcg in 100 mls @ 3.9 mls/hr IV TITRATE [facility]; Protocol Last Titration: 11/28/24 03:30 Dose: 0.6 mcg/kg/hr, 11.7 mls/hr Documented By: Admin: 11/28/24 03:22 Dose: 0.2 mcg/kg/hr, 3.9 mls/hr Documented By: GUANACO Ibuprofen (Ibuprofen 400 Mg Tablet) 400 mg PO Q4H PRN PRN Reason: Pain, Mild (1-3) Last Admin: 11/27/24 21:11 Dose: 400 mg Documented By: NORA Lorazepam (Lorazepam 2 Mg/Ml Inj) 0.25 mg IV Q4HR PRN PRN Reason: Anxiety Melatonin (Melatonin 3 Mg Tablet) 6 mg PO BEDTIME PRN PRN Reason: insomnia Metoclopramide HCl (Metoclopramide 10 Mg/2 Ml Inj) 10 mg IV Q6HR PRN PRN Reason: Nausea And Vomiting Last Admin: 11/27/24 21:10 Dose: 10 mg Documented By: NORA Morphine Sulfate (Morphine 4 Mg/Ml Inj) 3 mg IV Q2HR PRN PRN Reason: Pain, Severe (7-10) Last Admin: 11/28/24 00:56 Dose: 3 mg Documented By: GUANACO Naloxone HCl (Naloxone 0.4 Mg/Ml Vial) 0.2 mg IV Q2MIN PRN PRN Reason: Opiate Reversal Ondansetron HCl (Ondansetron 4 Mg/2 Ml Inj) 4 mg IV NOW PRN PRN Reason: Nausea And Vomiting Last Admin: 11/28/24 00:57 Dose: 4 mg Documented By: GUANACO Ondansetron HCl (Ondansetron 4 Mg Odt) 4 mg PO NOW PRN PRN Reason: Nausea And Vomiting Thiamine HCl (Thiamine 100 Mg Tablet) 100 mg PO DAILY [facility] Discontinued Medications Sodium Chloride (Normal Saline 0.9%) 1,000 mls @ 1,000 mls/hr IV BOLUS ONE Stop: 11/27/24 19:55 Last Infusion: 11/27/24 19:57 Dose: Infused Documented By: Admin: 11/27/24 19:16 Dose: 1,000 mls/hr Documented By: NORA Thiamine HCl 100 mg/ Sodium (Chloride) 101 mls @ 404 mls/hr IV NOW ONE Stop: 11/27/24 18:57 Last Infusion: 11/27/24 20:22 Dose: Infused Documented By: Admin: 11/27/24 19:46 Dose: 404 mls/hr Documented By: NORA Ciprofloxacin (Cipro) 400 mg in 200 mls @ 200 mls/hr IV NOW ONE Stop: 11/27/24 21:26 Last Admin: 11/27/24 21:45 Dose: Not Given Documented By: NORA Metronidazole (Flagyl) 500 mg in 100 mls @ 100 mls/hr IV NOW ONE Stop: 11/27/24 21:26 Last Admin: 11/27/24 21:45 Dose: Not Given Documented By: NORA Sodium Chloride (Normal Saline 0.9%) 500 mls @ 500 mls/hr IV BOLUS ONE Stop: 11/27/24 21:38 Last Admin: 11/27/24 21:11 Dose: 500 mls/hr Documented By: NORA Ciprofloxacin (Cipro) 200 mg in 100 mls @ 100 mls/hr IV Q12H [facility] Sodium Chloride (Hypertonic Saline 3%) 50 mls @ 600 mls/hr IV NOW ONE Stop: 11/27/24 20:48 Last Admin: 11/27/24 23:14 Dose: 600 mls/hr Documented By: GUANACO Ciprofloxacin (Cipro) 200 mg in 100 mls @ 100 mls/hr IV Q12H [facility] dexmedeTOMIDine in 0.9 % NaCL (Precedex) 400 mcg in 100 mls @ 3.9 mls/hr IV TITRATE REBECCA; Protocol Ondansetron HCl (Ondansetron 4 Mg/2 Ml Inj) 4 mg IV NOW ONE Stop: 11/27/24 19:30 Last Admin: 11/27/24 21:20 Dose: Not Given Documented By: NORA Pantoprazole Sodium (Pantoprazole 40 Mg Vial) 40 mg IV NOW ONE Stop: 11/27/24 19:27 Last Admin: 11/27/24 19:46 Dose: 40 mg Documented By: NORA Vital Signs Vital signs: Vital Signs - 8 hr 11/27/24 18:17 11/27/24 18:40 11/27/24 18:40 Temperature 97.5 F L Pulse Rate 128 H 124 H Respiratory Rate 18 Blood Pressure 120/74 115/74 Pulse Oximetry 96 95 Oxygen Delivery Method Room Air 11/27/24 19:00 11/27/24 19:00 11/27/24 19:30 Temperature Pulse Rate 119 H 120 H Respiratory Rate 24 21 Blood Pressure 107/67 Pulse Oximetry 95 96 Oxygen Delivery Method 11/27/24 19:56 11/27/24 19:56 11/27/24 20:00 Temperature Pulse Rate 115 H 120 H Respiratory Rate 21 Blood Pressure 116/79 Pulse Oximetry 96 95 Oxygen Delivery Method 11/27/24 20:00 Temperature Pulse Rate Respiratory Rate Blood Pressure 114/76 Pulse Oximetry Oxygen Delivery Method Medical Decision Making Lab Data Lab results reviewed: Yes I reviewed the patient's lab results. Lab results narrative: White blood cell count 30449, hemoglobin 12.7, platelets 140,000. Glucose 107. BUN 3 with creatinine 0.48 normal renal function. Serum CO2 20 decreased. Sodium 116 severely decreased. Potassium 4.0 normal range. Total bilirubin 11.9, AST 230, ALT 118, alkaline phosphatase 349. Lipase pending. UA pending. 11/27/24 18:25 11/28/24 03:40 Labs: Lab Results 11/27/24 11/27/24 11/27/24 Range/Units 18:25 18:31 18:31 WBC 20.4 H (4.5-11.0) X10^3/uL RBC 3.83 L (4.5-5.9) X10^6/uL Hgb 12.7 L (13.5-17.5) g/dL Hct 37.3 L (41-53) % MCV 97.5 (80-100) fL MCH 33.2 (26-34) PG MCHC 34.0 (30-36) % RDW 15.0 H (11.6-14.8) % Plt Count 140 L (150-400) X10^3/uL Neut % (Auto) Not Reportable Lymph % (Auto) Not Reportable Butts % (Auto) Not Reportable Eos % (Auto) Not Reportable Baso % (Auto) Not Reportable Lymph # (Auto) Not Reportable Butts # (Auto) Not Reportable Baso # (Auto) Not Reportable Total Counted 100 Seg Neutrophils % 54.0 (38-70) % Band Neutrophils % 29.0 H (3-7) % Lymphocytes % (Manual) 6.0 L (25-45) % Atypical Lymphs % 6.0 H ( - 0) % Monocytes % (Manual) 4.0 (2-11) % Eosinophils % (Manual) 1.0 L (2-4) % Neutrophils # (Manual) 42790 H (4781-3033) /uL Toxic Granulation Present H Toxic Vacuolation Pres RBC Morphology See below Macrocytosis 1+ H PT 15.7 H (9.4-12.5) SECONDS INR 1.4 H (0.9-1.3) Sodium 116 L* (137-145) mmol/L Potassium 4.0 (3.4-5.1) mmol/L Chloride 80 L (98-107) mmol/L Carbon Dioxide 20 L (22-32) mmol/L BUN 3 L (9-20) mg/dL Creatinine 0.48 L (0.66-1.25) mg/dL Estimated GFR > 60 (>60) mL/min BUN/Creatinine Ratio 6.3 (6-22) Glucose 107 H (70-99) mg/dL Lactate 2.7 H (0.7-2.1) mmol/L Calcium 7.8 L (8.4-10.2) mg/dL Total Bilirubin 11.9 H (0.2-1.3) mg/dL Direct Bilirubin 9.8 H (0.0-0.4) mg/dL AST 230 H (17-59) IU/L ALT 118 H (<50) IU/L Alkaline Phosphatase 349 H (38-126) U/L Ammonia 26 (9-30) umol/L Total Protein 7.8 (6.3-8.2) g/dL Albumin 3.5 (3.5-5.0) g/dL Globulin 4.3 H (1.7-4.1) g/dL Albumin/Globulin Ratio 0.8 L (1.0-2.8) Lipase 2928 H Cancelled (23-300) U/L TSH 1.76 (0.47-4.68) uIU/mL Urine Color Urine Appearance Urine pH (4.5-8.0) Ur Specific [place] (1.000-1.035) Urine Protein (Negative) Urine Glucose (UA) (Negative) g/dL Urine Ketones (NEGATIVE) Urine Occult Blood (Negative) Urine Nitrate (Negative) Urine Bilirubin (NEGATIVE) Ur Bilirubin Confirm (Negative) Urine Urobilinogen (0.2) E.U./dL Ur Leukocyte Esterase (NEGATIVE) Urine RBC (0-5/HPF) Urine WBC (0-5/HPF) Ur Squamous Epith Cells (0-5/HPF) Urine Bacteria (None) Ur Culture Indicated? Vol Urine Centrifuged Ur Random Sodium (30-90) mmol/L Stl C. cayetanensis PCR (Not Detect) Stool Rotavirus (PCR) (Not Detect) Stool Adenovirus (PCR) (Not Detect) Stool Astrovirus (PCR) (Not Detect) Stool Cryptosporidium PCR (Not Detect) Stl E.coli Shiga Tox PCR (Not Detect) St Sh/Enteroin Ecoli PCR (Not Detect) Stl Enterotoxigenic E PCR (Not Detect) Stool EPEC (PCR) (Not Detect) Stl E. histolytica PCR (Not Detect) Stool Giardia Lamblia PCR (Not Detect) Stool Sapovirus (PCR) (Not Detect) Stl P. shigelloides PCR (Not Detect) St Y.enterocolitica PCR (Not Detect) Stool Vibrio (PCR) (Not Detect) Stl Vibrio cholerae PCR (Not Detect) Stl Enteroaggr Ecoli PCR (Not Detect) Stl Norovirus GI/GII PCR (Not Detect) U Opiates 300ng/mL cut (Negative) Ur Oxycodone Screen (Negative) Urine Methadone Screen (Negative) Ur Barbiturates Screen (Negative) U Tricyclic Antidepress (Negative) Ur Phencyclidine Scrn (Negative) Ur Amphetamines Screen (Negative) U Methamphetamines Scrn (Negative) Ur MDMA Scrn (Ecstasy) (Negative) U Benzodiazepines Scrn (Negative) Urine Cocaine Screen (Negative) U Marijuana (THC) Screen (Negative) Urine Specific [place] (Normal) Ethyl Alcohol 193 H (<10) mg/dL Ur Creatinine (Normal) Campylobacter (PCR) (Not Detect) C. difficile Tox (PCR) (Not Detect) Salmonella (PCR) (Not Detect) 11/27/24 11/27/24 11/27/24 Range/Units 20:25 20:27 20:27 WBC (4.5-11.0) X10^3/uL RBC (4.5-5.9) X10^6/uL Hgb (13.5-17.5) g/dL Hct (41-53) % MCV (80-100) fL MCH (26-34) PG MCHC (30-36) % RDW (11.6-14.8) % Plt Count (150-400) X10^3/uL Neut % (Auto) Lymph % (Auto) Butts % (Auto) Eos % (Auto) Baso % (Auto) Lymph # (Auto) Butts # (Auto) Baso # (Auto) Total Counted Seg Neutrophils % (38-70) % Band Neutrophils % (3-7) % Lymphocytes % (Manual) (25-45) % Atypical Lymphs % ( - 0) % Monocytes % (Manual) (2-11) % Eosinophils % (Manual) (2-4) % Neutrophils # (Manual) (2199-1109) /uL Toxic Granulation Toxic Vacuolation RBC Morphology Macrocytosis PT (9.4-12.5) SECONDS INR (0.9-1.3) Sodium (137-145) mmol/L Potassium (3.4-5.1) mmol/L Chloride (98-107) mmol/L Carbon Dioxide (22-32) mmol/L BUN (9-20) mg/dL Creatinine (0.66-1.25) mg/dL Estimated GFR (>60) mL/min BUN/Creatinine Ratio (6-22) Glucose (70-99) mg/dL Lactate (0.7-2.1) mmol/L Calcium (8.4-10.2) mg/dL Total Bilirubin (0.2-1.3) mg/dL Direct Bilirubin (0.0-0.4) mg/dL AST (17-59) IU/L ALT (<50) IU/L Alkaline Phosphatase (38-126) U/L Ammonia (9-30) umol/L Total Protein (6.3-8.2) g/dL Albumin (3.5-5.0) g/dL Globulin (1.7-4.1) g/dL Albumin/Globulin Ratio (1.0-2.8) Lipase (23-300) U/L TSH (0.47-4.68) uIU/mL Urine Color Yellow Urine Appearance Clear Urine pH 6.5 Normal (4.5-8.0) Ur Specific [place] <=1.005 (1.000-1.035) Urine Protein Negative (Negative) Urine Glucose (UA) Negative (Negative) g/dL Urine Ketones Trace H (NEGATIVE) Urine Occult Blood Negative (Negative) Urine Nitrate Negative (Negative) Urine Bilirubin 2+ H (NEGATIVE) Ur Bilirubin Confirm Positive H (Negative) Urine Urobilinogen 0.2 (0.2) E.U./dL Ur Leukocyte Esterase Negative (NEGATIVE) Urine RBC 0-1/hpf (0-5/HPF) Urine WBC None seen (0-5/HPF) Ur Squamous Epith Cells 0-1 /hpf (0-5/HPF) Urine Bacteria None seen (None) Ur Culture Indicated? Cult not indicated Vol Urine Centrifuged 10ml (spun) Ur Random Sodium < 5 L (30-90) mmol/L Stl C. cayetanensis PCR Not detected (Not Detect) Stool Rotavirus (PCR) Not detected (Not Detect) Stool Adenovirus (PCR) Not detected (Not Detect) Stool Astrovirus (PCR) Not detected (Not Detect) Stool Cryptosporidium PCR Not detected (Not Detect) Stl E.coli Shiga Tox PCR Not detected (Not Detect) St Sh/Enteroin Ecoli PCR Not detected (Not Detect) Stl Enterotoxigenic E PCR Not detected (Not Detect) Stool EPEC (PCR) Not detected (Not Detect) Stl E. histolytica PCR Not detected (Not Detect) Stool Giardia Lamblia PCR Not detected (Not Detect) Stool Sapovirus (PCR) Not detected (Not Detect) Stl P. shigelloides PCR Not detected (Not Detect) St Y.enterocolitica PCR Not detected (Not Detect) Stool Vibrio (PCR) Not detected (Not Detect) Stl Vibrio cholerae PCR Not detected (Not Detect) Stl Enteroaggr Ecoli PCR Not detected (Not Detect) Stl Norovirus GI/GII PCR Detected (Not Detect) U Opiates 300ng/mL cut Negative (Negative) Ur Oxycodone Screen Negative (Negative) Urine Methadone Screen Negative (Negative) Ur Barbiturates Screen Negative (Negative) U Tricyclic Antidepress Negative (Negative) Ur Phencyclidine Scrn Negative (Negative) Ur Amphetamines Screen Negative (Negative) U Methamphetamines Scrn Negative (Negative) Ur MDMA Scrn (Ecstasy) Negative (Negative) U Benzodiazepines Scrn Negative (Negative) Urine Cocaine Screen Negative (Negative) U Marijuana (THC) Screen Negative (Negative) Urine Specific [place] Normal (Normal) Ethyl Alcohol (<10) mg/dL Ur Creatinine Normal (Normal) Campylobacter (PCR) Detected (Not Detect) C. difficile Tox (PCR) Not detected (Not Detect) Salmonella (PCR) Not detected (Not Detect) Imaging Data CT scan - abdomen/pelvis: Radiologist's Impression: [address] [address] [address] Scan Report Signed Patient: David Rodriguez MR#: [id number] : 1980 Acct:[id number] Age/Sex: 44 / M Date of Service: 11/27/24 Loc: ED Accession Number: [id number] Procedure: CT abdomen pelvis w con Ordering Provider: Salvador Cruz MD PROCEDURE: CT ABDOMEN PELVIS W CON INDICATIONS: abd pain, WBC 20k TECHNIQUE: After the administration of intravenous contrast, axial sections acquired from the lung bases to the pubic symphysis. Coronal and sagittal reformats were performed. For radiation dose reduction, the following was used: automated exposure control, adjustment of mA and/or kV according to patient size. COMPARISON: [facility], CT, CT ABDOMEN PELVIS W CON, 04/02/2019, 21:18. FINDINGS: Image quality: Diagnostic Lower chest: Unremarkable lung bases Partially seen enlarged hilar and lower mediastinal lymph nodes. Liver: Marked hepatic steatosis. Significant hepatomegaly at 24.5 cm. Gallbladder and biliary system: Unremarkable, nondilated Pancreas: No ductal dilation Spleen: Prominent at 12.5 cm Adrenals: No discrete nodules Kidneys: No solid renal mass. No hydronephrosis. Vessels and lymph nodes: The main portal vein is patent. No abdominal aortic aneurysm. No lymphadenopathy by size criteria. Prominent periportal lymph nodes however are present, likely reactive to chronic liver disease. Bowel and peritoneum: No small bowel obstruction. Normal diameter appendix. Diffuse colonic diverticula. Mild wall thickening is seen in the ascending colon. No drainable abscess or ascites Trace pelvic free fluid is present. Body wall: Unremarkable Pelvis: Mild wall thickening in the anterior bladder. Reproductive organs are unremarkable on limited CT evaluation. Bones: There are degenerative osseous changes. IMPRESSION: Marked hepatic steatosis and hepatomegaly. Mild wall thickening, possibly colitis, in the ascending colon. Colonic diverticula are seen. Nondilated appendix. Trace pelvic free fluid without drainable fluid collection. No bowel obstruction. Mild wall thickening of the anterior bladder, correlate urinalysis. Partially seen suspected enlarged lymph nodes in the lower mediastinum and gabrielle. Consider CT chest with contrast to further evaluate. Other findings above Dictated by: Dann Cox M.D. on 11/27/2024 at 20:12 Approved by: Dann Cox M.D. on 11/27/2024 at 20:18 ECG Data Attestation: I personally reviewed and interpreted this ECG as follows: Interpretation: 1844, sinus tachycardia with rate 121, no obvious ST segment elevation or depression changes. MD 136, QRS 84, QTC 451. MDM Narrative Medical decision making narrative: 44-year-old male with history of ongoing alcohol use, has recent diarrhea for the last week, no black or red stools, increasing central abdominal pain. Afebrile, sinus tachycardia noted, no tremulousness. Labs pending. IV fluid bolus. IV Protonix. IV Zofran. EKG shows sinus tachycardia with rate 121, no obvious ischemic changes. Lab data: White blood cell count 98978, hemoglobin 12.7, platelets 140,000. Glucose 107. BUN 3 with creatinine 0.48 normal renal function. Serum CO2 20 decreased. Sodium 116 severely decreased. Potassium 4.0 normal range. Total bilirubin 11.9, AST 230, ALT 118, alkaline phosphatase 349. Lipase pending. UA pending. CT abdomen and pelvis ordered. Urinalysis pending. Chest x-ray added. CT abdomen and pelvis. Impressions: ?Marked hepatic steatosis and hepatomegaly. Mild wall thickening, possibly colitis, in the ascending colon. Colonic diverticula are seen. Nondilated appendix. Trace pelvic free fluid without drainable fluid collection. No bowel obstruction. Mild wall thickening of the anterior bladder, correlate urinalysis. Partially seen suspected enlarged lymph nodes in the lower mediastinum and gabrielle. Consider CT chest with contrast to further evaluate. See radiology report. Colitis changes noted, leukocytosis, trace ascites not drainable. We will request blood cultures, IV ciprofloxacin/Flagyl. Hyponatremia noted, initial saline bolus, no seizure activity. We will contact hospitalist regarding admission. Consider sepsis, could be more aggressive with fluids, not hypotensive at this time, significant hyponatremia noted, initial fluid bolus normal saline given, no seizure activity thus far, doubt need for hypertonic saline at this time, defer further fluids management to hospitalist service. Hyponatremia related laboratory studies also sent, including TSH, urine sodium, urine osmolality, serum osmolality. 2030, case discussed with hospitalist Dr. Hawkins who accepts patient for admission to ICU here. Call back from lab, lipase was listed as canceled and then pending, was redrawn, elevated at 2928. No inflammatory changes of the pancreas mentioned on CT imaging. However alcoholic pancreatitis clinically likely. Hospitalist to be updated. Alcoholic pancreatitis added to admission diagnoses. Alcohol level 190s noted. Alcohol intoxication also add it is admission diagnoses. Hilar adenopathy noted lower mediastinum, added to problem list, consider further imaging as inpatient versus outpatient follow up. Critical Care Time Critical Care Time Critical Care Time: Yes Total Critical Care Time: 35 Attestation: The high probability of a clinically significant, sudden or life threatening deterioration of the [metabolic, gastrointestinal, cardiopulmonary] system(s) required my full and direct attention, intervention and personal management. The aggregate critical care time was [35] minutes. This time is in addition to time spent performing reported procedures but includes the following: [x] Data Review and interpretation [x] Patient assessment and monitoring of vital signs [x] Documentation [x] Medication orders and management Discharge Plan Departure Patient Disposition: Admitted As Inpatient Clinical Impression: Hyponatremia, Colitis, Alcoholic liver disease, Tachycardia, Hepatic steatosis, Hepatomegaly, Alcoholic pancreatitis, Alcohol intoxication, Hilar lymphadenopathy Admit Date/Time: 11/27/24 20:37 Admit Provider: Luis Hawkins
[2024-11-27 19:36] LABS: Lipase 2928 U/L (23-300)
[2024-11-27] MEDS: PANTOPRAZOLE 40 MG VIAL IV (19:46)
[2024-11-27] MEDS: THIAMINE 100 MG in SODIUM CHLORIDE 0.9% 100 ML 404 MG IV (19:46)
[2024-11-27 19:47] LABS: INR 1.4 (0.9-1.3); Prothrombin Time 15.7 SECONDS (9.4-12.5)
[2024-11-27 20:06] LABS: Lactate (Lactic Acid) 2.7 mmol/L (0.7-2.1)
[2024-11-27 20:49] LABS: Ethanol (ETOH) 193 mg/dL (<10)
[2024-11-27 20:49] LABS: Appearance Urine UA CLEAR; Bilirubin Urine UA 2+ (NEGATIVE); Color Urine UA YELLOW; Glucose Urine UA NEGATIVE (Negative); Ketones Urine UA TRACE (NEGATIVE); Leukocyte Esterase Urine UA NEGATIVE (NEGATIVE); Nitrite Urine UA NEGATIVE (Negative); Occult Blood Urine UA NEGATIVE (Negative); Protein Urine UA NEGATIVE (Negative); Specific Gravity Urine UA <=1.005 (1.000-1.035); Urobilinogen Urine UA 0.2 E.U./dL (0.2); pH Urine UA 6.5 (4.5-8.0)
[2024-11-27 20:50] LABS: Ictotest Urine Positive (Negative)
[2024-11-27 20:56] LABS: Culture Indicated Urine Cult Not Indicated
[2024-11-27 21:00] LABS: Ur Creatinine Normal (Normal); Ur Specific Gravity Normal (Normal); Urine MDMA Negative (Negative); Urine Methamphetamines Negative (Negative); Urine THC Negative (Negative); Urine Tricyclic Antidepressant Negative (Negative); Urine pH Normal (Normal)
[2024-11-27] MEDS: FAMOTIDINE 20 MG/2 ML VIAL IV (21:10)
[2024-11-27] MEDS: METOCLOPRAMIDE 10 MG/2 ML INJ IV (21:10)
[2024-11-27] MEDS: IBUPROFEN 400 MG TABLET PO (21:11)
[2024-11-27] MEDS: SODIUM CHLORIDE 0.9% 500 ML IV (21:11)
[2024-11-27 21:17] LABS: Reflexed Lactate in 2 Hours Y
[2024-11-27 21:24] LABS: Thyroid Stimulating Hormone 1.76 uIU/mL (0.47-4.68)
--- NOTE | 2024-11-27 22:00 | PC.NURSE ---
Addendum entered by Giuliana Diaz RN 11/27/24 23:47: 2340 Call placed to MD Hawkins. assessing patient via Webex. Orders received for Ciprofloxacin 400 mg/200 mL q 12 hours and to d/c cipro 200 mg/100 mL bag order Original Note: 2151 Patient arrived to unit. Patient AAO x's 4. Jaundice noted. Able to [place]. Denies numbness and tingling. Abdomen round, pain noted to upper quadrants, requesting pain meds. Call light within reach and bed in lowest position.
[2024-11-27 22:21] LABS: Clostridium difficile toxin AB Not Detected (Not Detect); Enteroaggregative E.coli Not Detected (Not Detect); Enteropathogenic E.coli Not Detected (Not Detect); Enterotoxigenic E.coli It/st Not Detected (Not Detect); Plesiomonsa shigelloides Not Detected (Not Detect); Shiga-like toxin-prod E.coli Not Detected (Not Detect)
[2024-11-27] MEDS: SODIUM CHLORIDE 0.9% 1,000 ML 100 ML IV (22:26)
[2024-11-27] MEDS: metroNIDAZOLE 500 MG/100 ML PIGGYBACK 100 MG IV (22:28)
[2024-11-27] MEDS: SODIUM CHLORIDE 3 % 50 ML 600 ML IV (23:14)
[2024-11-27 23:28] LABS: Blood Urea Nitrogen 3 mg/dL (9-20); Calcium 7.4 mg/dL (8.4-10.2); Carbon Dioxide 23 mmol/L (22-32); Chloride 85 mmol/L (98-107); Estimated Glomerular Filt Rate > 60 mL/min (>60); Glucose 90 mg/dL (70-99); HEMOLYSIS < 15 (0-50); Lactate 2HR (Lactic Acid Rflx) 2.0 mmol/L (0.7-2.1); Potassium 3.5 mmol/L (3.4-5.1); Sodium 120 mmol/L (137-145)
[2024-11-27 23:29] LABS: Cholesterol 257 mg/dL (140-199); HDL Cholesterol 31 mg/dL (40-60); Triglycerides 151 mg/dL (35-150)
[2024-11-27 23:40] LABS: MRSA (Nasal) PCR NOT DETECTED (Not Detect)
[2024-11-28] VITALS (22 sets, daily range): BP systolic 82–129; BP diastolic 54–78; PULSE 76–121; RESP 15–23; TEMP 35.9–37.1; O2SAT 94–98
[2024-11-28] MEDS: CIPROFLOXACIN 400 MG/200 ML PIGGYBACK 200 MG IV ×2 (00:13→11:26)
[2024-11-28] MEDS: MORPHINE 4 MG/ML INJ 3 MG IV (00:56)
[2024-11-28] MEDS: ONDANSETRON 4 MG/2 ML INJ IV (00:57)
[2024-11-28 01:25] LABS: Sodium 120 mmol/L (137-145)
--- NOTE | 2024-11-28 03:05 | PC.NURSE ---
Addendum entered by Giuliana Diaz RN 11/28/24 06:25: 0615 Patient potassium level 3.5. aware. Orders received for 2 bags of potassium. Original Note: 0305 Patient anxious with tremors and irritable/agitated. aware. Orders received for Precedex drip.
[2024-11-28] MEDS: dexmedeTOMIDine in 0.9 % NaCL 400 MCG/100 ML PLAST..BAG IV (03:22)
--- NOTE | 2024-11-28 03:40 | P.HP_ITS ---
History of Present Illness History of Present Illness Chief complaint: N/V/D Narrative: 44 years old male with history of longstanding heavy alcohol abuse presented to the ER with generalized weakness, feeling sleepy and not eating much. His last drink was this morning. Drinks on daily basis. Reports diarrhea in the last week. Denies any fever, shortness of breath, chest pain, palpitations, nausea, vomiting, abdominal pain, diarrhea or dysuria. Denies any alcohol-related seizures in the past. His last hospitalization was 7 months ago for EtOH withdrawal. Laboratory shows WBC 20.4, H&H 12.7 and 37.3, platelets 140, sodium 116, potassium 4, bicarb 20, creatinine 0.48, INR 1.4, glucose 107, lactate 2.7, calcium 7.8, total bilirubin 11.9, AST 230, ALT 118, ammonia level 26, lipase 2928, UA negative, U tox negative, alcohol level 190. Abdominal CT scans shows marked hepatic steatosis hepatomegaly. Partially seen suspected enlarged lymph nodes in the lower mediastinum and gabrielle. Mild wall thickening of anterior urinary bladder. In the ER he was given IV Protonix, Zofran, ciprofloxacin, Flagyl, thiamine and fluid bolus. [facility] Medical History (Updated 11/27/24 @ 21:07 by Salvador Cruz MD) No significant medical problems Social History household members: significant other and children Smoking Status: Former smoker alcohol intake: current Meds Home Medications and Allergies Home Medications ?Medication ?Instructions ?Recorded ?Confirmed ?Type clonidine HCl 0.1 mg tablet 0.1 mg PO BID 11/27/2402/10 History gabapentin 300 mg capsule 300 mg PO 3XD 11/27/2411/27 History hydroxyzine HCl 50 mg tablet 50 mg PO 3XD PRN anxiety 11/27/24 11/27/24 History Allergies Allergy/AdvReac Type Severity Reaction Status Date / Time No Known Drug Allergies Allergy Verified 11/27/24 18:21 Review of Systems Review of Systems ROS: Yes All systems reviewed with the patient and are negative except as otherwise documented Constitutional Constitutional: Reports as per HPI and Reports system reviewed and no additional complaints, except as documented Eyes Eyes: Reports as per HPI and Reports system reviewed and no additional complaints, except as documented ENT Ears, Nose, Mouth, and Throat: Yes as per HPI and Yes system reviewed and no additional complaints, except as documented Cardiovascular Cardiovascular: Reports system reviewed and no additional complaints, except as documented Respiratory Respiratory: Reports system reviewed and no additional complaints, except as documented Gastrointestinal Gastrointestinal: Reports system reviewed and no additional complaints, except as documented Genitourinary Genitourinary: Reports system reviewed and no additional complaints, except as documented Musculoskeletal Musculoskeletal: Reports system reviewed and no additional complaints, except as documented, Reports abnormal gait and Reports numbness Neurologic Neurologic: Reports system reviewed and no additional complaints, except as documented, Reports abnormal gait, Reports confusion and Reports numbness Psychiatric Psychiatric: Reports system reviewed and no additional complaints, except as documented and Reports confusion Exam Vital Signs (past 8 hours): - 11/27/24 19:56 11/27/24 19:56 11/27/24 20:00 Temperature Pulse Rate 115 H 120 H Respiratory Rate 21 Blood Pressure 116/79 Pulse Oximetry 96 95 Oxygen Delivery Method Oxygen Flow Rate 11/27/24 20:00 11/27/24 21:38 11/27/24 21:52 Temperature 98.5 F Pulse Rate 120 H Respiratory Rate 18 Blood Pressure 114/76 110/71 Pulse Oximetry 99 Oxygen Delivery Method Room Air Oxygen Flow Rate 0 11/27/24 23:00 11/28/24 00:00 11/28/24 02:00 Temperature 98.6 F Pulse Rate 119 H 121 H 114 H Respiratory Rate 18 20 18 Blood Pressure 118/54 L 96/70 102/64 Pulse Oximetry 98 98 94 Oxygen Delivery Method Oxygen Flow Rate 0 0 0 11/28/24 03:00 Temperature Pulse Rate 121 H Respiratory Rate 18 Blood Pressure 129/78 Pulse Oximetry 95 Oxygen Delivery Method Oxygen Flow Rate 0 Oxygen Delivery Method Room Air Oxygen Flow Rate 0 Const General: cooperative, comfortable and well developed Orientation: alert and oriented x3 HENMT Head: normal to inspection, normocephalic and atraumatic Face and sinus: normal facial exam Mouth: oral mucosae normal and moist mucous membranes Throat: posterior oropharynx normal Eyes General: appearance normal, both eyes and all related structures Pupils: PERRL EOM: EOM intact bilaterally Neck Neck: normal visual inspection and full ROM Chest Chest: normal inspection of the chest Resp Effort & Inspection: normal respiratory effort and able to speak in complete sentences Auscultation: clear to auscultation bilaterally Cardio Palpation: normal PMI Rate: regular rate Rhythm: regular rhythm Heart Sounds: S1 normal and S2 normal GI Inspection: normal to inspection Palpation: soft and no hepatosplenomegaly Auscultation: normal bowel sounds Skin General: no rashes or lesions noted Lesions: no lesions Rashes: no rashes Trauma: no lacerations or abrasions Neuro General: patient alert, patient awake, patient oriented x3 and no focal motor deficits Cranial Nerves: CN's II-XI intact bilaterally Cognition: normal cognition Speech: speech normal Gait: normal gait Motor: muscle tone normal throughout Sensory Exam: no sensory deficits noted Extrem General: full ROM and no calf tenderness Psych Appearance: grossly normal Mental Status: mental status grossly normal Speech and Movement: speech and movement normal Objective Labs 11/27/24 18:25 11/28/24 00:55 Labs: Laboratory Results - last 24 hr 11/27/24 11/27/24 11/27/24 18:25 18:31 18:31 WBC 20.4 H RBC 3.83 L Hgb 12.7 L Hct 37.3 L MCV 97.5 MCH 33.2 MCHC 34.0 RDW 15.0 H Plt Count 140 L Neut % (Auto) Not Reportable Lymph % (Auto) Not Reportable Ellis % (Auto) Not Reportable Eos % (Auto) Not Reportable Baso % (Auto) Not Reportable Lymph # (Auto) Not Reportable Ellis # (Auto) Not Reportable Baso # (Auto) Not Reportable Total Counted 100 Seg Neutrophils % 54.0 Band Neutrophils % 29.0 H Lymphocytes % (Manual) 6.0 L Atypical Lymphs % 6.0 H Monocytes % (Manual) 4.0 Eosinophils % (Manual) 1.0 L Neutrophils # (Manual) 07441 H Toxic Granulation Present H Toxic Vacuolation Pres RBC Morphology See below Macrocytosis 1+ H PT 15.7 H INR 1.4 H Sodium 116 L* Potassium 4.0 Chloride 80 L Carbon Dioxide 20 L BUN 3 L Creatinine 0.48 L Estimated GFR > 60 BUN/Creatinine Ratio 6.3 Glucose 107 H Lactate 2.7 H Calcium 7.8 L Total Bilirubin 11.9 H Direct Bilirubin 9.8 H AST 230 H ALT 118 H Alkaline Phosphatase 349 H Ammonia 26 Total Protein 7.8 Albumin 3.5 Globulin 4.3 H Albumin/Globulin Ratio 0.8 L Triglycerides Cholesterol LDL Cholesterol, Calc HDL Cholesterol Lipase 2928 H Cancelled TSH 1.76 Urine Color Urine Appearance Urine pH Ur Specific [place] Urine Protein Urine Glucose (UA) Urine Ketones Urine Occult Blood Urine Nitrate Urine Bilirubin Ur Bilirubin Confirm Urine Urobilinogen Ur Leukocyte Esterase Urine RBC Urine WBC Ur Squamous Epith Cells Urine Bacteria Ur Culture Indicated? Vol Urine Centrifuged Ur Random Sodium Nasal Screen MRSA (PCR) Stl C. cayetanensis PCR Stool Rotavirus (PCR) Stool Adenovirus (PCR) Stool Astrovirus (PCR) Stool Cryptosporidium PCR Stl E.coli Shiga Tox PCR St Sh/Enteroin Ecoli PCR Stl Enterotoxigenic E PCR Stool EPEC (PCR) Stl E. histolytica PCR Stool Giardia Lamblia PCR Stool Sapovirus (PCR) Stl P. shigelloides PCR St Y.enterocolitica PCR Stool Vibrio (PCR) Stl Vibrio cholerae PCR Stl Enteroaggr Ecoli PCR Stl Norovirus GI/GII PCR U Opiates 300ng/mL cut Ur Oxycodone Screen Urine Methadone Screen Ur Barbiturates Screen U Tricyclic Antidepress Ur Phencyclidine Scrn Ur Amphetamines Screen U Methamphetamines Scrn Ur MDMA Scrn (Ecstasy) U Benzodiazepines Scrn Urine Cocaine Screen U Marijuana (THC) Screen Urine Specific [place] Ethyl Alcohol 193 H Ur Creatinine Campylobacter (PCR) C. difficile Tox (PCR) Salmonella (PCR) 11/27/24 11/27/24 11/27/24 20:25 20:27 20:27 WBC RBC Hgb Hct MCV MCH MCHC RDW Plt Count Neut % (Auto) Lymph % (Auto) Ellis % (Auto) Eos % (Auto) Baso % (Auto) Lymph # (Auto) Ellis # (Auto) Baso # (Auto) Total Counted Seg Neutrophils % Band Neutrophils % Lymphocytes % (Manual) Atypical Lymphs % Monocytes % (Manual) Eosinophils % (Manual) Neutrophils # (Manual) Toxic Granulation Toxic Vacuolation RBC Morphology Macrocytosis PT INR Sodium Potassium Chloride Carbon Dioxide BUN Creatinine Estimated GFR BUN/Creatinine Ratio Glucose Lactate Calcium Total Bilirubin Direct Bilirubin AST ALT Alkaline Phosphatase Ammonia Total Protein Albumin Globulin Albumin/Globulin Ratio Triglycerides Cholesterol LDL Cholesterol, Calc HDL Cholesterol Lipase TSH Urine Color Yellow Urine Appearance Clear Urine pH 6.5 Normal Ur Specific [place] <=1.005 Urine Protein Negative Urine Glucose (UA) Negative Urine Ketones Trace H Urine Occult Blood Negative Urine Nitrate Negative Urine Bilirubin 2+ H Ur Bilirubin Confirm Positive H Urine Urobilinogen 0.2 Ur Leukocyte Esterase Negative Urine RBC 0-1/hpf Urine WBC None seen Ur Squamous Epith Cells 0-1 /hpf Urine Bacteria None seen Ur Culture Indicated? Cult not indicated Vol Urine Centrifuged 10ml (spun) Ur Random Sodium < 5 L Nasal Screen MRSA (PCR) Stl C. cayetanensis PCR Not detected Stool Rotavirus (PCR) Not detected Stool Adenovirus (PCR) Not detected Stool Astrovirus (PCR) Not detected Stool Cryptosporidium PCR Not detected Stl E.coli Shiga Tox PCR Not detected St Sh/Enteroin Ecoli PCR Not detected Stl Enterotoxigenic E PCR Not detected Stool EPEC (PCR) Not detected Stl E. histolytica PCR Not detected Stool Giardia Lamblia PCR Not detected Stool Sapovirus (PCR) Not detected Stl P. shigelloides PCR Not detected St Y.enterocolitica PCR Not detected Stool Vibrio (PCR) Not detected Stl Vibrio cholerae PCR Not detected Stl Enteroaggr Ecoli PCR Not detected Stl Norovirus GI/GII PCR Detected U Opiates 300ng/mL cut Negative Ur Oxycodone Screen Negative Urine Methadone Screen Negative Ur Barbiturates Screen Negative U Tricyclic Antidepress Negative Ur Phencyclidine Scrn Negative Ur Amphetamines Screen Negative U Methamphetamines Scrn Negative Ur MDMA Scrn (Ecstasy) Negative U Benzodiazepines Scrn Negative Urine Cocaine Screen Negative U Marijuana (THC) Screen Negative Urine Specific [place] Normal Ethyl Alcohol Ur Creatinine Normal Campylobacter (PCR) Detected C. difficile Tox (PCR) Not detected Salmonella (PCR) Not detected 11/27/24 11/27/24 11/27/24 21:58 22:45 22:45 WBC RBC Hgb Hct MCV MCH MCHC RDW Plt Count Neut % (Auto) Lymph % (Auto) Ellis % (Auto) Eos % (Auto) Baso % (Auto) Lymph # (Auto) Ellis # (Auto) Baso # (Auto) Total Counted Seg Neutrophils % Band Neutrophils % Lymphocytes % (Manual) Atypical Lymphs % Monocytes % (Manual) Eosinophils % (Manual) Neutrophils # (Manual) Toxic Granulation Toxic Vacuolation RBC Morphology Macrocytosis PT INR Sodium 120 L Cancelled Potassium 3.5 Chloride 85 L Carbon Dioxide 23 BUN 3 L Creatinine 0.52 L Estimated GFR > 60 BUN/Creatinine Ratio 5.8 L Glucose 90 Lactate 2.0 Calcium 7.4 L Total Bilirubin Direct Bilirubin AST ALT Alkaline Phosphatase Ammonia Total Protein Albumin Globulin Albumin/Globulin Ratio Triglycerides 151 H Cholesterol 257 H LDL Cholesterol, Calc 196 H HDL Cholesterol 31 L Lipase TSH Urine Color Urine Appearance Urine pH Ur Specific [place] Urine Protein Urine Glucose (UA) Urine Ketones Urine Occult Blood Urine Nitrate Urine Bilirubin Ur Bilirubin Confirm Urine Urobilinogen Ur Leukocyte Esterase Urine RBC Urine WBC Ur Squamous Epith Cells Urine Bacteria Ur Culture Indicated? Vol Urine Centrifuged Ur Random Sodium Nasal Screen MRSA (PCR) Not detected Stl C. cayetanensis PCR Stool Rotavirus (PCR) Stool Adenovirus (PCR) Stool Astrovirus (PCR) Stool Cryptosporidium PCR Stl E.coli Shiga Tox PCR St Sh/Enteroin Ecoli PCR Stl Enterotoxigenic E PCR Stool EPEC (PCR) Stl E. histolytica PCR Stool Giardia Lamblia PCR Stool Sapovirus (PCR) Stl P. shigelloides PCR St Y.enterocolitica PCR Stool Vibrio (PCR) Stl Vibrio cholerae PCR Stl Enteroaggr Ecoli PCR Stl Norovirus GI/GII PCR U Opiates 300ng/mL cut Ur Oxycodone Screen Urine Methadone Screen Ur Barbiturates Screen U Tricyclic Antidepress Ur Phencyclidine Scrn Ur Amphetamines Screen U Methamphetamines Scrn Ur MDMA Scrn (Ecstasy) U Benzodiazepines Scrn Urine Cocaine Screen U Marijuana (THC) Screen Urine Specific [place] Ethyl Alcohol Ur Creatinine Campylobacter (PCR) C. difficile Tox (PCR) Salmonella (PCR) 11/28/24 00:55 WBC RBC Hgb Hct MCV MCH MCHC RDW Plt Count Neut % (Auto) Lymph % (Auto) Ellis % (Auto) Eos % (Auto) Baso % (Auto) Lymph # (Auto) Ellis # (Auto) Baso # (Auto) Total Counted Seg Neutrophils % Band Neutrophils % Lymphocytes % (Manual) Atypical Lymphs % Monocytes % (Manual) Eosinophils % (Manual) Neutrophils # (Manual) Toxic Granulation Toxic Vacuolation RBC Morphology Macrocytosis PT INR Sodium 120 L Potassium Chloride Carbon Dioxide BUN Creatinine Estimated GFR BUN/Creatinine Ratio Glucose Lactate Calcium Total Bilirubin Direct Bilirubin AST ALT Alkaline Phosphatase Ammonia Total Protein Albumin Globulin Albumin/Globulin Ratio Triglycerides Cholesterol LDL Cholesterol, Calc HDL Cholesterol Lipase TSH Urine Color Urine Appearance Urine pH Ur Specific [place] Urine Protein Urine Glucose (UA) Urine Ketones Urine Occult Blood Urine Nitrate Urine Bilirubin Ur Bilirubin Confirm Urine Urobilinogen Ur Leukocyte Esterase Urine RBC Urine WBC Ur Squamous Epith Cells Urine Bacteria Ur Culture Indicated? Vol Urine Centrifuged Ur Random Sodium Nasal Screen MRSA (PCR) Stl C. cayetanensis PCR Stool Rotavirus (PCR) Stool Adenovirus (PCR) Stool Astrovirus (PCR) Stool Cryptosporidium PCR Stl E.coli Shiga Tox PCR St Sh/Enteroin Ecoli PCR Stl Enterotoxigenic E PCR Stool EPEC (PCR) Stl E. histolytica PCR Stool Giardia Lamblia PCR Stool Sapovirus (PCR) Stl P. shigelloides PCR St Y.enterocolitica PCR Stool Vibrio (PCR) Stl Vibrio cholerae PCR Stl Enteroaggr Ecoli PCR Stl Norovirus GI/GII PCR U Opiates 300ng/mL cut Ur Oxycodone Screen Urine Methadone Screen Ur Barbiturates Screen U Tricyclic Antidepress Ur Phencyclidine Scrn Ur Amphetamines Screen U Methamphetamines Scrn Ur MDMA Scrn (Ecstasy) U Benzodiazepines Scrn Urine Cocaine Screen U Marijuana (THC) Screen Urine Specific [place] Ethyl Alcohol Ur Creatinine Campylobacter (PCR) C. difficile Tox (PCR) Salmonella (PCR) Assessment & Plan Assessment & Plan narrative: Alcohol withdrawal. Patient seemed to have alcohol withdrawal in beginning stages, will start patient on CIWA protocol. -Continue patient on banana bag IV. -Ativan IV/p.o. per CIWA protocol -Start the patient on thiamine 100 mg IV initially and switch to oral daily, folic acid 1 mg daily -monitor electrolytes, magnesium and phosphate -Consider social organization professor consult for alcohol abuse rehab program. -counseled patient about the health risk of alcohol and encourage quitting when patient is stable and alcohol withdrawal resolved -if patient's alcohol withdrawal gets worse and then consider Precedex drip. -Chief Cloth Finishing Range Operator patient about the health risks of alcohol and encourage quitting when patient stable and alcohol withdrawal resolved. needleworker referral for alcohol abuse rehab programs. Hyponatremia of 116 -gently hydrate patient and check patient's sodium every 4 hours for next 12 hours. -check TSH, lipid panel, urine sodium and urine/serum osmolality -Limits patient's sodium rise to 8 mEq in 24 hours. - Hypertonic saline 3% 50 cc once -Monitor patient's neuro checks -Patient's sodium not improving or improving too fast, consider nephrology consultation to assist managing. Questionable colitis. Patient meets the criteria for sepsis. - Will continue Cipro and metronidazole - Follow-up on the blood cultures -Repeat lactic acid Alcoholic hepatitis. Check for acute viral hepatitis. Avoid potentially hepatotoxic medications. Monitor closely. Elevated lipase without any clinical symptoms. Will check lipids. Symptomatic treatment with fluids, pain control and antiemetics as needed. Repeat lipase a.m. Time-Based Coding :: [TOTAL MINUTES] spent with patient and on the chart (including review of chart, obtaining history, exam, reviewing outside data, placing orders, documenting exam and treatment plan, and counseling patient) on [DATE]. Quality VTE Deep Vein Thrombosis/Pulmonary Embolism Present on Admission: No MIPS - Admit I confirm the patient?s Advance Care Plan is present, Code status is documented, Surrogate decision maker is in patient?s record [If Yes, STOP here]: Yes MIPS - Meds 'Current medications' to include all prescriptions, [id number] products, herbals, cannabis/cannabidiol products, and vitamin/mineral/dietary (nutritional) supplements. I have utilized all available resources to obtain, update, or review the patient?s current medications. [If Yes, STOP here]: Yes
[2024-11-28 03:57] LABS: Sodium 119 mmol/L (137-145)
[2024-11-28] MEDS: metroNIDAZOLE 500 MG/100 ML PIGGYBACK 100 MG IV ×2 (05:23→13:30)
[2024-11-28 05:35] LABS: Sodium 121 mmol/L (137-145)
[2024-11-28] MEDS: POTASSIUM CHLORIDE IN WATER 10 MEQ/100 ML PIGGYBACK 100 MEQ IV ×2 (06:37→07:58)
[2024-11-28 06:40] LABS: Lactate (Lactic Acid) 1.5 mmol/L (0.7-2.1)
[2024-11-28 06:41] LABS: Alanine Aminotransferase 96 IU/L (<50); Albumin 2.7 g/dL (3.5-5.0); Albumin Globulin Ratio 0.7 (1.0-2.8); Alkaline Phosphatase 262 U/L (38-126); Blood Urea Nitrogen 4 mg/dL (9-20); Calcium 7.2 mg/dL (8.4-10.2); Carbon Dioxide 21 mmol/L (22-32); Chloride 90 mmol/L (98-107); Estimated Glomerular Filt Rate > 60 mL/min (>60); Globulin 3.7 g/dL (1.7-4.1); Glucose 106 mg/dL (70-99); HEMOLYSIS < 15 (0-50); Magnesium 1.7 mg/dL (1.6-2.3); Potassium 3.4 mmol/L (3.4-5.1); Sodium 120 mmol/L (137-145); Total Protein 6.4 g/dL (6.3-8.2)
[2024-11-28 06:42] LABS: Lipase 1479 U/L (23-300)
--- NOTE | 2024-11-28 07:59 | PM.PN.1 ---
Subjective Subjective Date Patient Seen: 11/28/24 Interval history: 44 years old male with history of longstanding heavy alcohol abuse presented to the ER with generalized weakness, feeling sleepy and not eating much. His last drink was this morning. Drinks on daily basis. Reports diarrhea in the last week. Denies any fever, shortness of breath, chest pain, palpitations, nausea, vomiting, abdominal pain, diarrhea or dysuria. Denies any alcohol-related seizures in the past. His last hospitalization was 7 months ago for EtOH withdrawal. Laboratory shows WBC 20.4, H&H 12.7 and 37.3, platelets 140, sodium 116, potassium 4, bicarb 20, creatinine 0.48, INR 1.4, glucose 107, lactate 2.7, calcium 7.8, total bilirubin 11.9, AST 230, ALT 118, ammonia level 26, lipase 2928, UA negative, U tox negative, alcohol level 190. Abdominal CT scans shows marked hepatic steatosis hepatomegaly. Partially seen suspected enlarged lymph nodes in the lower mediastinum and gabrielle. Mild wall thickening of anterior urinary bladder. In the ER he was given IV Protonix, Zofran, ciprofloxacin, Flagyl, thiamine and fluid bolus. [facility] Medical History (Updated 11/27/24 @ 21:07 by Salvador Cruz MD) No significant medical problems Social History household members: significant other and children Smoking Status: Former smoker alcohol intake: current Meds Home Medications and Allergies Home Medications ?Medication ?Instructions ?Recorded ?Confirmed ?Type clonidine HCl 0.1 mg tablet 0.1 mg PO BID 11/27/24 11/27/24 History gabapentin 300 mg capsule 300 mg PO 3XD 11/27/24 11/27/24 History hydroxyzine HCl 50 mg tablet 50 mg PO 3XD PRN anxiety 11/27/24 11/27/24 History Allergies Allergy/AdvReac Type Severity Reaction Status Date / Time No Known Drug Allergies Allergy Verified 11/27/24 18:21 Labs: Laboratory Results - last 24 hr 11/27/24 11/27/24 11/27/24 18:25 18:31 18:31 WBC 20.4 H RBC 3.83 L Hgb 12.7 L Hct 37.3 L MCV 97.5 MCH 33.2 MCHC 34.0 RDW 15.0 H Plt Count 140 L Neut % (Auto) Not Reportable Lymph % (Auto) Not Reportable [place] % (Auto) Not Reportable Eos % (Auto) Not Reportable Baso % (Auto) Not Reportable Lymph # (Auto) Not Reportable [place] # (Auto) Not Reportable Baso # (Auto) Not Reportable Total Counted 100 Seg Neutrophils % 54.0 Band Neutrophils % 29.0 H Lymphocytes % (Manual) 6.0 L Atypical Lymphs % 6.0 H Monocytes % (Manual) 4.0 Eosinophils % (Manual) 1.0 L Neutrophils # (Manual) 84016 H Toxic Granulation Present H Toxic Vacuolation Pres RBC Morphology See below Macrocytosis 1+ H PT 15.7 H INR 1.4 H Sodium 116 L* Potassium 4.0 Chloride 80 L Carbon Dioxide 20 L BUN 3 L Creatinine 0.48 L Estimated GFR > 60 BUN/Creatinine Ratio 6.3 Glucose 107 H Lactate 2.7 H Calcium 7.8 L Total Bilirubin 11.9 H Direct Bilirubin 9.8 H AST 230 H ALT 118 H Alkaline Phosphatase 349 H Ammonia 26 Total Protein 7.8 Albumin 3.5 Globulin 4.3 H Albumin/Globulin Ratio 0.8 L Triglycerides Cholesterol LDL Cholesterol, Calc HDL Cholesterol Lipase 2928 H Cancelled TSH 1.76 Urine Color Urine Appearance Urine pH Ur Specific [place] Urine Protein Urine Glucose (UA) Urine Ketones Urine Occult Blood Urine Nitrate Urine Bilirubin Ur Bilirubin Confirm Urine Urobilinogen Ur Leukocyte Esterase Urine RBC Urine WBC Ur Squamous Epith Cells Urine Bacteria Ur Culture Indicated? Vol Urine Centrifuged Ur Random Sodium Nasal Screen MRSA (PCR) Stl C. cayetanensis PCR Stool Rotavirus (PCR) Stool Adenovirus (PCR) Stool Astrovirus (PCR) Stool Cryptosporidium PCR Stl E.coli Shiga Tox PCR St Sh/Enteroin Ecoli PCR Stl Enterotoxigenic E PCR Stool EPEC (PCR) Stl E. histolytica PCR Stool Giardia Lamblia PCR Stool Sapovirus (PCR) Stl P. shigelloides PCR St Y.enterocolitica PCR Stool Vibrio (PCR) Stl Vibrio cholerae PCR Stl Enteroaggr Ecoli PCR Stl Norovirus GI/GII PCR U Opiates 300ng/mL cut Ur Oxycodone Screen Urine Methadone Screen Ur Barbiturates Screen U Tricyclic Antidepress Ur Phencyclidine Scrn Ur Amphetamines Screen U Methamphetamines Scrn Ur MDMA Scrn (Ecstasy) U Benzodiazepines Scrn Urine Cocaine Screen U Marijuana (THC) Screen Urine Specific [place] Ethyl Alcohol 193 H Ur Creatinine Campylobacter (PCR) C. difficile Tox (PCR) Salmonella (PCR) 11/27/24 11/27/24 11/27/24 20:25 20:27 20:27 WBC RBC Hgb Hct MCV MCH MCHC RDW Plt Count Neut % (Auto) Lymph % (Auto) [place] % (Auto) Eos % (Auto) Baso % (Auto) Lymph # (Auto) [place] # (Auto) Baso # (Auto) Total Counted Seg Neutrophils % Band Neutrophils % Lymphocytes % (Manual) Atypical Lymphs % Monocytes % (Manual) Eosinophils % (Manual) Neutrophils # (Manual) Toxic Granulation Toxic Vacuolation RBC Morphology Macrocytosis PT INR Sodium Potassium Chloride Carbon Dioxide BUN Creatinine Estimated GFR BUN/Creatinine Ratio Glucose Lactate Calcium Total Bilirubin Direct Bilirubin AST ALT Alkaline Phosphatase Ammonia Total Protein Albumin Globulin Albumin/Globulin Ratio Triglycerides Cholesterol LDL Cholesterol, Calc HDL Cholesterol Lipase TSH Urine Color Yellow Urine Appearance Clear Urine pH 6.5 Normal Ur Specific [place] <=1.005 Urine Protein Negative Urine Glucose (UA) Negative Urine Ketones Trace H Urine Occult Blood Negative Urine Nitrate Negative Urine Bilirubin 2+ H Ur Bilirubin Confirm Positive H Urine Urobilinogen 0.2 Ur Leukocyte Esterase Negative Urine RBC 0-1/hpf Urine WBC None seen Ur Squamous Epith Cells 0-1 /hpf Urine Bacteria None seen Ur Culture Indicated? Cult not indicated Vol Urine Centrifuged 10ml (spun) Ur Random Sodium < 5 L Nasal Screen MRSA (PCR) Stl C. cayetanensis PCR Not detected Stool Rotavirus (PCR) Not detected Stool Adenovirus (PCR) Not detected Stool Astrovirus (PCR) Not detected Stool Cryptosporidium PCR Not detected Stl E.coli Shiga Tox PCR Not detected St Sh/Enteroin Ecoli PCR Not detected Stl Enterotoxigenic E PCR Not detected Stool EPEC (PCR) Not detected Stl E. histolytica PCR Not detected Stool Giardia Lamblia PCR Not detected Stool Sapovirus (PCR) Not detected Stl P. shigelloides PCR Not detected St Y.enterocolitica PCR Not detected Stool Vibrio (PCR) Not detected Stl Vibrio cholerae PCR Not detected Stl Enteroaggr Ecoli PCR Not detected Stl Norovirus GI/GII PCR Detected U Opiates 300ng/mL cut Negative Ur Oxycodone Screen Negative Urine Methadone Screen Negative Ur Barbiturates Screen Negative U Tricyclic Antidepress Negative Ur Phencyclidine Scrn Negative Ur Amphetamines Screen Negative U Methamphetamines Scrn Negative Ur MDMA Scrn (Ecstasy) Negative U Benzodiazepines Scrn Negative Urine Cocaine Screen Negative U Marijuana (THC) Screen Negative Urine Specific [place] Normal Ethyl Alcohol Ur Creatinine Normal Campylobacter (PCR) Detected C. difficile Tox (PCR) Not detected Salmonella (PCR) Not detected 11/27/24 11/27/24 11/27/24 21:58 22:45 22:45 WBC RBC Hgb Hct MCV MCH MCHC RDW Plt Count Neut % (Auto) Lymph % (Auto) [place] % (Auto) Eos % (Auto) Baso % (Auto) Lymph # (Auto) [place] # (Auto) Baso # (Auto) Total Counted Seg Neutrophils % Band Neutrophils % Lymphocytes % (Manual) Atypical Lymphs % Monocytes % (Manual) Eosinophils % (Manual) Neutrophils # (Manual) Toxic Granulation Toxic Vacuolation RBC Morphology Macrocytosis PT INR Sodium 120 L Cancelled Potassium 3.5 Chloride 85 L Carbon Dioxide 23 BUN 3 L Creatinine 0.52 L Estimated GFR > 60 BUN/Creatinine Ratio 5.8 L Glucose 90 Lactate 2.0 Calcium 7.4 L Total Bilirubin Direct Bilirubin AST ALT Alkaline Phosphatase Ammonia Total Protein Albumin Globulin Albumin/Globulin Ratio Triglycerides 151 H Cholesterol 257 H LDL Cholesterol, Calc 196 H HDL Cholesterol 31 L Lipase TSH Urine Color Urine Appearance Urine pH Ur Specific [place] Urine Protein Urine Glucose (UA) Urine Ketones Urine Occult Blood Urine Nitrate Urine Bilirubin Ur Bilirubin Confirm Urine Urobilinogen Ur Leukocyte Esterase Urine RBC Urine WBC Ur Squamous Epith Cells Urine Bacteria Ur Culture Indicated? Vol Urine Centrifuged Ur Random Sodium Nasal Screen MRSA (PCR) Not detected Stl C. cayetanensis PCR Stool Rotavirus (PCR) Stool Adenovirus (PCR) Stool Astrovirus (PCR) Stool Cryptosporidium PCR Stl E.coli Shiga Tox PCR St Sh/Enteroin Ecoli PCR Stl Enterotoxigenic E PCR Stool EPEC (PCR) Stl E. histolytica PCR Stool Giardia Lamblia PCR Stool Sapovirus (PCR) Stl P. shigelloides PCR St Y.enterocolitica PCR Stool Vibrio (PCR) Stl Vibrio cholerae PCR Stl Enteroaggr Ecoli PCR Stl Norovirus GI/GII PCR U Opiates 300ng/mL cut Ur Oxycodone Screen Urine Methadone Screen Ur Barbiturates Screen U Tricyclic Antidepress Ur Phencyclidine Scrn Ur Amphetamines Screen U Methamphetamines Scrn Ur MDMA Scrn (Ecstasy) U Benzodiazepines Scrn Urine Cocaine Screen U Marijuana (THC) Screen Urine Specific [place] Ethyl Alcohol Ur Creatinine Campylobacter (PCR) C. difficile Tox (PCR) Salmonella (PCR) 11/28/24 00:55 WBC RBC Hgb Hct MCV MCH MCHC RDW Plt Count Neut % (Auto) Lymph % (Auto) [place] % (Auto) Eos % (Auto) Baso % (Auto) Lymph # (Auto) [place] # (Auto) Baso # (Auto) Total Counted Seg Neutrophils % Band Neutrophils % Lymphocytes % (Manual) Atypical Lymphs % Monocytes % (Manual) Eosinophils % (Manual) Neutrophils # (Manual) Toxic Granulation Toxic Vacuolation RBC Morphology Macrocytosis PT INR Sodium 120 L Potassium Chloride Carbon Dioxide BUN Creatinine Estimated GFR BUN/Creatinine Ratio Glucose Lactate Calcium Total Bilirubin Direct Bilirubin AST ALT Alkaline Phosphatase Ammonia Total Protein Albumin Globulin Albumin/Globulin Ratio Triglycerides Cholesterol LDL Cholesterol, Calc HDL Cholesterol Lipase TSH Urine Color Urine Appearance Urine pH Ur Specific [place] Urine Protein Urine Glucose (UA) Urine Ketones Urine Occult Blood Urine Nitrate Urine Bilirubin Ur Bilirubin Confirm Urine Urobilinogen Ur Leukocyte Esterase Urine RBC Urine WBC Ur Squamous Epith Cells Urine Bacteria Ur Culture Indicated? Vol Urine Centrifuged Ur Random Sodium Nasal Screen MRSA (PCR) Stl C. cayetanensis PCR Stool Rotavirus (PCR) Stool Adenovirus (PCR) Stool Astrovirus (PCR) Stool Cryptosporidium PCR Stl E.coli Shiga Tox PCR St Sh/Enteroin Ecoli PCR Stl Enterotoxigenic E PCR Stool EPEC (PCR) Stl E. histolytica PCR Stool Giardia Lamblia PCR Stool Sapovirus (PCR) Stl P. shigelloides PCR St Y.enterocolitica PCR Stool Vibrio (PCR) Stl Vibrio cholerae PCR Stl Enteroaggr Ecoli PCR Stl Norovirus GI/GII PCR U Opiates 300ng/mL cut Ur Oxycodone Screen Urine Methadone Screen Ur Barbiturates Screen U Tricyclic Antidepress Ur Phencyclidine Scrn Ur Amphetamines Screen U Methamphetamines Scrn Ur MDMA Scrn (Ecstasy) U Benzodiazepines Scrn Urine Cocaine Screen U Marijuana (THC) Screen Urine Specific [place] Ethyl Alcohol Ur Creatinine Campylobacter (PCR) C. difficile Tox (PCR) Salmonella (PCR) Assessment & Plan Assessment & Plan narrative: Alcohol withdrawal. Patient seemed to have alcohol withdrawal in beginning stages, will start patient on CIWA protocol. -Continue patient on banana bag IV. -Ativan IV/p.o. per [facility] protocol -Start the patient on thiamine 100 mg IV initially and switch to oral daily, folic acid 1 mg daily -monitor electrolytes, magnesium and phosphate -Consider sexual assault social worker consult for alcohol abuse rehab program. -counseled patient about the health risk of alcohol and encourage quitting when patient is stable and alcohol withdrawal resolved -if patient's alcohol withdrawal gets worse and then consider Precedex drip. -It Service Technician patient about the health risks of alcohol and encourage quitting when patient stable and alcohol withdrawal resolved. frog or oyster farmworker referral for alcohol abuse rehab programs. Hyponatremia of 116 -gently hydrate patient and check patient's sodium every 4 hours for next 12 hours. -check TSH, lipid panel, urine sodium and urine/serum osmolality -Limits patient's sodium rise to 8 mEq in 24 hours. - Hypertonic saline 3% 50 cc once -Monitor patient's neuro checks -Patient's sodium not improving or improving too fast, consider nephrology consultation to assist managing. Questionable colitis. Patient meets the criteria for sepsis. - Will continue Cipro and metronidazole - Follow-up on the blood cultures -Repeat lactic acid Alcoholic hepatitis. Check for acute viral hepatitis. Avoid potentially hepatotoxic medications. Monitor closely. Elevated lipase without any clinical symptoms. Will check lipids. Symptomatic treatment with fluids, pain control and antiemetics as needed. Repeat lipase a.m. Exam Vital Signs (past 8 hours): - 11/28/24 00:00 11/28/24 02:00 11/28/24 03:00 Temperature 98.6 F Pulse Rate 121 H 114 H 121 H Respiratory Rate 20 18 18 Blood Pressure 96/70 102/64 129/78 Pulse Oximetry 98 94 95 Oxygen Flow Rate 0 0 0 11/28/24 04:00 11/28/24 05:00 11/28/24 06:00 Temperature 98.3 F Pulse Rate 105 H 96 H 94 H Respiratory Rate 18 18 16 Blood Pressure 100/65 92/57 L 92/58 L Pulse Oximetry 95 94 95 Oxygen Flow Rate 0 0 0 11/28/24 07:00 Temperature Pulse Rate 98 H Respiratory Rate 20 Blood Pressure 89/59 L Pulse Oximetry 95 Oxygen Flow Rate 0 Oxygen Delivery Method Room Air Oxygen Flow Rate 0 Objective Labs 11/27/24 18:25 11/28/24 06:07 Labs: Laboratory Results - last 24 hr 11/27/24 11/27/24 11/27/24 18:25 18:31 18:31 WBC 20.4 H RBC 3.83 L Hgb 12.7 L Hct 37.3 L MCV 97.5 MCH 33.2 MCHC 34.0 RDW 15.0 H Plt Count 140 L Neut % (Auto) Not Reportable Lymph % (Auto) Not Reportable [place] % (Auto) Not Reportable Eos % (Auto) Not Reportable Baso % (Auto) Not Reportable Lymph # (Auto) Not Reportable [place] # (Auto) Not Reportable Baso # (Auto) Not Reportable Total Counted 100 Seg Neutrophils % 54.0 Band Neutrophils % 29.0 H Lymphocytes % (Manual) 6.0 L Atypical Lymphs % 6.0 H Monocytes % (Manual) 4.0 Eosinophils % (Manual) 1.0 L Neutrophils # (Manual) 19628 H Toxic Granulation Present H Toxic Vacuolation Pres RBC Morphology See below Macrocytosis 1+ H PT 15.7 H INR 1.4 H Sodium 116 L* Potassium 4.0 Chloride 80 L Carbon Dioxide 20 L BUN 3 L Creatinine 0.48 L Estimated GFR > 60 BUN/Creatinine Ratio 6.3 Glucose 107 H Lactate 2.7 H Calcium 7.8 L Magnesium Total Bilirubin 11.9 H Direct Bilirubin 9.8 H AST 230 H ALT 118 H Alkaline Phosphatase 349 H Ammonia 26 Total Protein 7.8 Albumin 3.5 Globulin 4.3 H Albumin/Globulin Ratio 0.8 L Triglycerides Cholesterol LDL Cholesterol, Calc HDL Cholesterol Lipase 2928 H Cancelled TSH 1.76 Urine Color Urine Appearance Urine pH Ur Specific [place] Urine Protein Urine Glucose (UA) Urine Ketones Urine Occult Blood Urine Nitrate Urine Bilirubin Ur Bilirubin Confirm Urine Urobilinogen Ur Leukocyte Esterase Urine RBC Urine WBC Ur Squamous Epith Cells Urine Bacteria Ur Culture Indicated? Vol Urine Centrifuged Ur Random Sodium Nasal Screen MRSA (PCR) Stl C. cayetanensis PCR Stool Rotavirus (PCR) Stool Adenovirus (PCR) Stool Astrovirus (PCR) Stool Cryptosporidium PCR Stl E.coli Shiga Tox PCR St Sh/Enteroin Ecoli PCR Stl Enterotoxigenic E PCR Stool EPEC (PCR) Stl E. histolytica PCR Stool Giardia Lamblia PCR Stool Sapovirus (PCR) Stl P. shigelloides PCR St Y.enterocolitica PCR Stool Vibrio (PCR) Stl Vibrio cholerae PCR Stl Enteroaggr Ecoli PCR Stl Norovirus GI/GII PCR U Opiates 300ng/mL cut Ur Oxycodone Screen Urine Methadone Screen Ur Barbiturates Screen U Tricyclic Antidepress Ur Phencyclidine Scrn Ur Amphetamines Screen U Methamphetamines Scrn Ur MDMA Scrn (Ecstasy) U Benzodiazepines Scrn Urine Cocaine Screen U Marijuana (THC) Screen Urine Specific [place] Ethyl Alcohol 193 H Ur Creatinine Campylobacter (PCR) C. difficile Tox (PCR) Salmonella (PCR) 11/27/24 11/27/24 11/27/24 20:25 20:27 20:27 WBC RBC Hgb Hct MCV MCH MCHC RDW Plt Count Neut % (Auto) Lymph % (Auto) [place] % (Auto) Eos % (Auto) Baso % (Auto) Lymph # (Auto) [place] # (Auto) Baso # (Auto) Total Counted Seg Neutrophils % Band Neutrophils % Lymphocytes % (Manual) Atypical Lymphs % Monocytes % (Manual) Eosinophils % (Manual) Neutrophils # (Manual) Toxic Granulation Toxic Vacuolation RBC Morphology Macrocytosis PT INR Sodium Potassium Chloride Carbon Dioxide BUN Creatinine Estimated GFR BUN/Creatinine Ratio Glucose Lactate Calcium Magnesium Total Bilirubin Direct Bilirubin AST ALT Alkaline Phosphatase Ammonia Total Protein Albumin Globulin Albumin/Globulin Ratio Triglycerides Cholesterol LDL Cholesterol, Calc HDL Cholesterol Lipase TSH Urine Color Yellow Urine Appearance Clear Urine pH 6.5 Normal Ur Specific [place] <=1.005 Urine Protein Negative Urine Glucose (UA) Negative Urine Ketones Trace H Urine Occult Blood Negative Urine Nitrate Negative Urine Bilirubin 2+ H Ur Bilirubin Confirm Positive H Urine Urobilinogen 0.2 Ur Leukocyte Esterase Negative Urine RBC 0-1/hpf Urine WBC None seen Ur Squamous Epith Cells 0-1 /hpf Urine Bacteria None seen Ur Culture Indicated? Cult not indicated Vol Urine Centrifuged 10ml (spun) Ur Random Sodium < 5 L Nasal Screen MRSA (PCR) Stl C. cayetanensis PCR Not detected Stool Rotavirus (PCR) Not detected Stool Adenovirus (PCR) Not detected Stool Astrovirus (PCR) Not detected Stool Cryptosporidium PCR Not detected Stl E.coli Shiga Tox PCR Not detected St Sh/Enteroin Ecoli PCR Not detected Stl Enterotoxigenic E PCR Not detected Stool EPEC (PCR) Not detected Stl E. histolytica PCR Not detected Stool Giardia Lamblia PCR Not detected Stool Sapovirus (PCR) Not detected Stl P. shigelloides PCR Not detected St Y.enterocolitica PCR Not detected Stool Vibrio (PCR) Not detected Stl Vibrio cholerae PCR Not detected Stl Enteroaggr Ecoli PCR Not detected Stl Norovirus GI/GII PCR Detected U Opiates 300ng/mL cut Negative Ur Oxycodone Screen Negative Urine Methadone Screen Negative Ur Barbiturates Screen Negative U Tricyclic Antidepress Negative Ur Phencyclidine Scrn Negative Ur Amphetamines Screen Negative U Methamphetamines Scrn Negative Ur MDMA Scrn (Ecstasy) Negative U Benzodiazepines Scrn Negative Urine Cocaine Screen Negative U Marijuana (THC) Screen Negative Urine Specific [place] Normal Ethyl Alcohol Ur Creatinine Normal Campylobacter (PCR) Detected C. difficile Tox (PCR) Not detected Salmonella (PCR) Not detected 11/27/24 11/27/24 11/27/24 21:58 22:45 22:45 WBC RBC Hgb Hct MCV MCH MCHC RDW Plt Count Neut % (Auto) Lymph % (Auto) [place] % (Auto) Eos % (Auto) Baso % (Auto) Lymph # (Auto) [place] # (Auto) Baso # (Auto) Total Counted Seg Neutrophils % Band Neutrophils % Lymphocytes % (Manual) Atypical Lymphs % Monocytes % (Manual) Eosinophils % (Manual) Neutrophils # (Manual) Toxic Granulation Toxic Vacuolation RBC Morphology Macrocytosis PT INR Sodium 120 L Cancelled Potassium 3.5 Chloride 85 L Carbon Dioxide 23 BUN 3 L Creatinine 0.52 L Estimated GFR > 60 BUN/Creatinine Ratio 5.8 L Glucose 90 Lactate 2.0 Calcium 7.4 L Magnesium Total Bilirubin Direct Bilirubin AST ALT Alkaline Phosphatase Ammonia Total Protein Albumin Globulin Albumin/Globulin Ratio Triglycerides 151 H Cholesterol 257 H LDL Cholesterol, Calc 196 H HDL Cholesterol 31 L Lipase TSH Urine Color Urine Appearance Urine pH Ur Specific [place] Urine Protein Urine Glucose (UA) Urine Ketones Urine Occult Blood Urine Nitrate Urine Bilirubin Ur Bilirubin Confirm Urine Urobilinogen Ur Leukocyte Esterase Urine RBC Urine WBC Ur Squamous Epith Cells Urine Bacteria Ur Culture Indicated? Vol Urine Centrifuged Ur Random Sodium Nasal Screen MRSA (PCR) Not detected Stl C. cayetanensis PCR Stool Rotavirus (PCR) Stool Adenovirus (PCR) Stool Astrovirus (PCR) Stool Cryptosporidium PCR Stl E.coli Shiga Tox PCR St Sh/Enteroin Ecoli PCR Stl Enterotoxigenic E PCR Stool EPEC (PCR) Stl E. histolytica PCR Stool Giardia Lamblia PCR Stool Sapovirus (PCR) Stl P. shigelloides PCR St Y.enterocolitica PCR Stool Vibrio (PCR) Stl Vibrio cholerae PCR Stl Enteroaggr Ecoli PCR Stl Norovirus GI/GII PCR U Opiates 300ng/mL cut Ur Oxycodone Screen Urine Methadone Screen Ur Barbiturates Screen U Tricyclic Antidepress Ur Phencyclidine Scrn Ur Amphetamines Screen U Methamphetamines Scrn Ur MDMA Scrn (Ecstasy) U Benzodiazepines Scrn Urine Cocaine Screen U Marijuana (THC) Screen Urine Specific [place] Ethyl Alcohol Ur Creatinine Campylobacter (PCR) C. difficile Tox (PCR) Salmonella (PCR) 11/28/24 11/28/24 11/28/24 00:55 03:40 04:55 WBC RBC Hgb Hct MCV MCH MCHC RDW Plt Count Neut % (Auto) Lymph % (Auto) [place] % (Auto) Eos % (Auto) Baso % (Auto) Lymph # (Auto) [place] # (Auto) Baso # (Auto) Total Counted Seg Neutrophils % Band Neutrophils % Lymphocytes % (Manual) Atypical Lymphs % Monocytes % (Manual) Eosinophils % (Manual) Neutrophils # (Manual) Toxic Granulation Toxic Vacuolation RBC Morphology Macrocytosis PT INR Sodium 120 L 119 L* 121 L Potassium Chloride Carbon Dioxide BUN Creatinine Estimated GFR BUN/Creatinine Ratio Glucose Lactate Calcium Magnesium Total Bilirubin Direct Bilirubin AST ALT Alkaline Phosphatase Ammonia Total Protein Albumin Globulin Albumin/Globulin Ratio Triglycerides Cholesterol LDL Cholesterol, Calc HDL Cholesterol Lipase TSH Urine Color Urine Appearance Urine pH Ur Specific [place] Urine Protein Urine Glucose (UA) Urine Ketones Urine Occult Blood Urine Nitrate Urine Bilirubin Ur Bilirubin Confirm Urine Urobilinogen Ur Leukocyte Esterase Urine RBC Urine WBC Ur Squamous Epith Cells Urine Bacteria Ur Culture Indicated? Vol Urine Centrifuged Ur Random Sodium Nasal Screen MRSA (PCR) Stl C. cayetanensis PCR Stool Rotavirus (PCR) Stool Adenovirus (PCR) Stool Astrovirus (PCR) Stool Cryptosporidium PCR Stl E.coli Shiga Tox PCR St Sh/Enteroin Ecoli PCR Stl Enterotoxigenic E PCR Stool EPEC (PCR) Stl E. histolytica PCR Stool Giardia Lamblia PCR Stool Sapovirus (PCR) Stl P. shigelloides PCR St Y.enterocolitica PCR Stool Vibrio (PCR) Stl Vibrio cholerae PCR Stl Enteroaggr Ecoli PCR Stl Norovirus GI/GII PCR U Opiates 300ng/mL cut Ur Oxycodone Screen Urine Methadone Screen Ur Barbiturates Screen U Tricyclic Antidepress Ur Phencyclidine Scrn Ur Amphetamines Screen U Methamphetamines Scrn Ur MDMA Scrn (Ecstasy) U Benzodiazepines Scrn Urine Cocaine Screen U Marijuana (THC) Screen Urine Specific [place] Ethyl Alcohol Ur Creatinine Campylobacter (PCR) C. difficile Tox (PCR) Salmonella (PCR) 11/28/24 06:07 WBC RBC Hgb Hct MCV MCH MCHC RDW Plt Count Neut % (Auto) Lymph % (Auto) [place] % (Auto) Eos % (Auto) Baso % (Auto) Lymph # (Auto) [place] # (Auto) Baso # (Auto) Total Counted Seg Neutrophils % Band Neutrophils % Lymphocytes % (Manual) Atypical Lymphs % Monocytes % (Manual) Eosinophils % (Manual) Neutrophils # (Manual) Toxic Granulation Toxic Vacuolation RBC Morphology Macrocytosis PT INR Sodium 120 L Potassium 3.4 Chloride 90 L Carbon Dioxide 21 L BUN 4 L Creatinine 0.54 L Estimated GFR > 60 BUN/Creatinine Ratio 7.4 Glucose 106 H Lactate 1.5 Calcium 7.2 L Magnesium 1.7 Total Bilirubin 9.9 H Direct Bilirubin AST 159 H ALT 96 H Alkaline Phosphatase 262 H Ammonia Total Protein 6.4 Albumin 2.7 L Globulin 3.7 Albumin/Globulin Ratio 0.7 L Triglycerides Cholesterol LDL Cholesterol, Calc HDL Cholesterol Lipase 1479 H TSH Urine Color Urine Appearance Urine pH Ur Specific [place] Urine Protein Urine Glucose (UA) Urine Ketones Urine Occult Blood Urine Nitrate Urine Bilirubin Ur Bilirubin Confirm Urine Urobilinogen Ur Leukocyte Esterase Urine RBC Urine WBC Ur Squamous Epith Cells Urine Bacteria Ur Culture Indicated? Vol Urine Centrifuged Ur Random Sodium Nasal Screen MRSA (PCR) Stl C. cayetanensis PCR Stool Rotavirus (PCR) Stool Adenovirus (PCR) Stool Astrovirus (PCR) Stool Cryptosporidium PCR Stl E.coli Shiga Tox PCR St Sh/Enteroin Ecoli PCR Stl Enterotoxigenic E PCR Stool EPEC (PCR) Stl E. histolytica PCR Stool Giardia Lamblia PCR Stool Sapovirus (PCR) Stl P. shigelloides PCR St Y.enterocolitica PCR Stool Vibrio (PCR) Stl Vibrio cholerae PCR Stl Enteroaggr Ecoli PCR Stl Norovirus GI/GII PCR U Opiates 300ng/mL cut Ur Oxycodone Screen Urine Methadone Screen Ur Barbiturates Screen U Tricyclic Antidepress Ur Phencyclidine Scrn Ur Amphetamines Screen U Methamphetamines Scrn Ur MDMA Scrn (Ecstasy) U Benzodiazepines Scrn Urine Cocaine Screen U Marijuana (THC) Screen Urine Specific [place] Ethyl Alcohol Ur Creatinine Campylobacter (PCR) C. difficile Tox (PCR) Salmonella (PCR) [facility] Medical History (Updated 11/27/24 @ 21:07 by Salvador Cruz MD) No significant medical problems Social History household members: significant other and children Smoking Status: Former smoker alcohol intake: current Assessment & Plan Time-Based Coding :: [TOTAL MINUTES] spent with patient and on the chart (including review of chart, obtaining history, exam, reviewing outside data, placing orders, documenting exam and treatment plan, and counseling patient) on [DATE]. Quality VTE Deep Vein Thrombosis/Pulmonary Embolism Present on Admission: No
--- NOTE | 2024-11-28 08:02 | PM.HP.1 ---
History of Present Illness History of Present Illness Date Patient Seen: 11/28/24 Chief complaint: N/V/D Narrative: This is a 44 years old male with a history of longstanding heavy alcohol abuse who presented to the ED with generalized weakness, feeling sleepy and not eating much. His last alcoholic drink was this morning. He drinks every day. He has had diarrhea in the last week and was found to have Norovirus. He has had no fever, shortness of breath, chest pain, palpitations, nausea, vomiting, abdominal pain, diarrhea or dysuria. Denies any alcohol-related seizures in the past. His last hospitalization was 7 months ago for EtOH withdrawal. He had declined substance abuse treatment at that time but says that he is willing to go through a program now. The WBC is 20.4, H&H 12.7 and 37.3, platelets 140, sodium 116, potassium 4, bicarb 20, creatinine 0.48, INR 1.4, glucose 107, lactate 2.7, calcium 7.8, total bilirubin 11.9, AST 230, ALT 118, ammonia level 26, lipase 2928, UA negative, U tox negative, alcohol level 190. Abdominal CT scans shows marked hepatic steatosis hepatomegaly. There are also partially seen suspected enlarged lymph nodes in the lower mediastinum and gabrielle. There is mild wall thickening of the anterior urinary bladder. He was initially given IV Protonix, Zofran, ciprofloxacin, Flagyl, thiamine and fluid bolus. Overnight he required Precedex for a rising level of alcohol withdrawal agitation. His blood pressure has been in the 80-90 range systolic today so that will be stopped and we will use lorazepam instead. Meds Home Medications and Allergies Home Medications ?Medication ?Instructions ?Recorded ?Confirmed ?Type clonidine HCl 0.1 mg tablet 0.1 mg PO BID 11/27/24 11/27/24 History gabapentin 300 mg capsule 300 mg PO 3XD 11/27/24 11/27/24 History hydroxyzine HCl 50 mg tablet 50 mg PO 3XD PRN anxiety 11/27/24 11/27/24 History Allergies Allergy/AdvReac Type Severity Reaction Status Date / Time No Known Drug Allergies Allergy Verified 11/27/24 18:21 Labs: Laboratory Results - last 24 hr 11/27/24 11/27/24 11/27/24 18:25 18:31 18:31 WBC 20.4 H RBC 3.83 L Hgb 12.7 L Hct 37.3 L MCV 97.5 MCH 33.2 MCHC 34.0 RDW 15.0 H Plt Count 140 L Neut % (Auto) Not Reportable Lymph % (Auto) Not Reportable Glenn % (Auto) Not Reportable Eos % (Auto) Not Reportable Baso % (Auto) Not Reportable Lymph # (Auto) Not Reportable Glenn # (Auto) Not Reportable Baso # (Auto) Not Reportable Total Counted 100 Seg Neutrophils % 54.0 Band Neutrophils % 29.0 H Lymphocytes % (Manual) 6.0 L Atypical Lymphs % 6.0 H Monocytes % (Manual) 4.0 Eosinophils % (Manual) 1.0 L Neutrophils # (Manual) 92536 H Toxic Granulation Present H Toxic Vacuolation Pres RBC Morphology See below Macrocytosis 1+ H PT 15.7 H INR 1.4 H Sodium 116 L* Potassium 4.0 Chloride 80 L Carbon Dioxide 20 L BUN 3 L Creatinine 0.48 L Estimated GFR > 60 BUN/Creatinine Ratio 6.3 Glucose 107 H Lactate 2.7 H Calcium 7.8 L Total Bilirubin 11.9 H Direct Bilirubin 9.8 H AST 230 H ALT 118 H Alkaline Phosphatase 349 H Ammonia 26 Total Protein 7.8 Albumin 3.5 Globulin 4.3 H Albumin/Globulin Ratio 0.8 L Triglycerides Cholesterol LDL Cholesterol, Calc HDL Cholesterol Lipase 2928 H Cancelled TSH 1.76 Urine Color Urine Appearance Urine pH Ur Specific [place] Urine Protein Urine Glucose (UA) Urine Ketones Urine Occult Blood Urine Nitrate Urine Bilirubin Ur Bilirubin Confirm Urine Urobilinogen Ur Leukocyte Esterase Urine RBC Urine WBC Ur Squamous Epith Cells Urine Bacteria Ur Culture Indicated? Vol Urine Centrifuged Ur Random Sodium Nasal Screen MRSA (PCR) Stl C. cayetanensis PCR Stool Rotavirus (PCR) Stool Adenovirus (PCR) Stool Astrovirus (PCR) Stool Cryptosporidium PCR Stl E.coli Shiga Tox PCR St Sh/Enteroin Ecoli PCR Stl Enterotoxigenic E PCR Stool EPEC (PCR) Stl E. histolytica PCR Stool Giardia Lamblia PCR Stool Sapovirus (PCR) Stl P. shigelloides PCR St Y.enterocolitica PCR Stool Vibrio (PCR) Stl Vibrio cholerae PCR Stl Enteroaggr Ecoli PCR Stl Norovirus GI/GII PCR U Opiates 300ng/mL cut Ur Oxycodone Screen Urine Methadone Screen Ur Barbiturates Screen U Tricyclic Antidepress Ur Phencyclidine Scrn Ur Amphetamines Screen U Methamphetamines Scrn Ur MDMA Scrn (Ecstasy) U Benzodiazepines Scrn Urine Cocaine Screen U Marijuana (THC) Screen Urine Specific [place] Ethyl Alcohol 193 H Ur Creatinine Campylobacter (PCR) C. difficile Tox (PCR) Salmonella (PCR) 11/27/24 11/27/24 11/27/24 20:25 20:27 20:27 WBC RBC Hgb Hct MCV MCH MCHC RDW Plt Count Neut % (Auto) Lymph % (Auto) Glenn % (Auto) Eos % (Auto) Baso % (Auto) Lymph # (Auto) Glenn # (Auto) Baso # (Auto) Total Counted Seg Neutrophils % Band Neutrophils % Lymphocytes % (Manual) Atypical Lymphs % Monocytes % (Manual) Eosinophils % (Manual) Neutrophils # (Manual) Toxic Granulation Toxic Vacuolation RBC Morphology Macrocytosis PT INR Sodium Potassium Chloride Carbon Dioxide BUN Creatinine Estimated GFR BUN/Creatinine Ratio Glucose Lactate Calcium Total Bilirubin Direct Bilirubin AST ALT Alkaline Phosphatase Ammonia Total Protein Albumin Globulin Albumin/Globulin Ratio Triglycerides Cholesterol LDL Cholesterol, Calc HDL Cholesterol Lipase TSH Urine Color Yellow Urine Appearance Clear Urine pH 6.5 Normal Ur Specific [place] <=1.005 Urine Protein Negative Urine Glucose (UA) Negative Urine Ketones Trace H Urine Occult Blood Negative Urine Nitrate Negative Urine Bilirubin 2+ H Ur Bilirubin Confirm Positive H Urine Urobilinogen 0.2 Ur Leukocyte Esterase Negative Urine RBC 0-1/hpf Urine WBC None seen Ur Squamous Epith Cells 0-1 /hpf Urine Bacteria None seen Ur Culture Indicated? Cult not indicated Vol Urine Centrifuged 10ml (spun) Ur Random Sodium < 5 L Nasal Screen MRSA (PCR) Stl C. cayetanensis PCR Not detected Stool Rotavirus (PCR) Not detected Stool Adenovirus (PCR) Not detected Stool Astrovirus (PCR) Not detected Stool Cryptosporidium PCR Not detected Stl E.coli Shiga Tox PCR Not detected St Sh/Enteroin Ecoli PCR Not detected Stl Enterotoxigenic E PCR Not detected Stool EPEC (PCR) Not detected Stl E. histolytica PCR Not detected Stool Giardia Lamblia PCR Not detected Stool Sapovirus (PCR) Not detected Stl P. shigelloides PCR Not detected St Y.enterocolitica PCR Not detected Stool Vibrio (PCR) Not detected Stl Vibrio cholerae PCR Not detected Stl Enteroaggr Ecoli PCR Not detected Stl Norovirus GI/GII PCR Detected U Opiates 300ng/mL cut Negative Ur Oxycodone Screen Negative Urine Methadone Screen Negative Ur Barbiturates Screen Negative U Tricyclic Antidepress Negative Ur Phencyclidine Scrn Negative Ur Amphetamines Screen Negative U Methamphetamines Scrn Negative Ur MDMA Scrn (Ecstasy) Negative U Benzodiazepines Scrn Negative Urine Cocaine Screen Negative U Marijuana (THC) Screen Negative Urine Specific [place] Normal Ethyl Alcohol Ur Creatinine Normal Campylobacter (PCR) Detected C. difficile Tox (PCR) Not detected Salmonella (PCR) Not detected 11/27/24 11/27/24 11/27/24 21:58 22:45 22:45 WBC RBC Hgb Hct MCV MCH MCHC RDW Plt Count Neut % (Auto) Lymph % (Auto) Glenn % (Auto) Eos % (Auto) Baso % (Auto) Lymph # (Auto) Glenn # (Auto) Baso # (Auto) Total Counted Seg Neutrophils % Band Neutrophils % Lymphocytes % (Manual) Atypical Lymphs % Monocytes % (Manual) Eosinophils % (Manual) Neutrophils # (Manual) Toxic Granulation Toxic Vacuolation RBC Morphology Macrocytosis PT INR Sodium 120 L Cancelled Potassium 3.5 Chloride 85 L Carbon Dioxide 23 BUN 3 L Creatinine 0.52 L Estimated GFR > 60 BUN/Creatinine Ratio 5.8 L Glucose 90 Lactate 2.0 Calcium 7.4 L Total Bilirubin Direct Bilirubin AST ALT Alkaline Phosphatase Ammonia Total Protein Albumin Globulin Albumin/Globulin Ratio Triglycerides 151 H Cholesterol 257 H LDL Cholesterol, Calc 196 H HDL Cholesterol 31 L Lipase TSH Urine Color Urine Appearance Urine pH Ur Specific [place] Urine Protein Urine Glucose (UA) Urine Ketones Urine Occult Blood Urine Nitrate Urine Bilirubin Ur Bilirubin Confirm Urine Urobilinogen Ur Leukocyte Esterase Urine RBC Urine WBC Ur Squamous Epith Cells Urine Bacteria Ur Culture Indicated? Vol Urine Centrifuged Ur Random Sodium Nasal Screen MRSA (PCR) Not detected Stl C. cayetanensis PCR Stool Rotavirus (PCR) Stool Adenovirus (PCR) Stool Astrovirus (PCR) Stool Cryptosporidium PCR Stl E.coli Shiga Tox PCR St Sh/Enteroin Ecoli PCR Stl Enterotoxigenic E PCR Stool EPEC (PCR) Stl E. histolytica PCR Stool Giardia Lamblia PCR Stool Sapovirus (PCR) Stl P. shigelloides PCR St Y.enterocolitica PCR Stool Vibrio (PCR) Stl Vibrio cholerae PCR Stl Enteroaggr Ecoli PCR Stl Norovirus GI/GII PCR U Opiates 300ng/mL cut Ur Oxycodone Screen Urine Methadone Screen Ur Barbiturates Screen U Tricyclic Antidepress Ur Phencyclidine Scrn Ur Amphetamines Screen U Methamphetamines Scrn Ur MDMA Scrn (Ecstasy) U Benzodiazepines Scrn Urine Cocaine Screen U Marijuana (THC) Screen Urine Specific [place] Ethyl Alcohol Ur Creatinine Campylobacter (PCR) C. difficile Tox (PCR) Salmonella (PCR) Assessment & Plan Alcohol withdrawal. Present on admission, active. -Continue thiamine and appropriate supplementation with folate. -Ativan IV/p.o. per [facility] protocol -monitor electrolytes, magnesium and phosphate -clinical social work aide consult for alcohol abuse rehab program. -experienced significant hypotension on Precedex so we will try to avoid it. -Supervisor Evaporator patient about the health risks of alcohol and encourage quitting when patient stable and alcohol withdrawal resolved. bridge worker referral for alcohol abuse rehab programs. Hyponatremia of 116, up to 121 with supplementation. -gently hydrate patient and check patient's sodium every 4 hours for next 12 hours. -check TSH, lipid panel, urine sodium and urine/serum osmolality -Limits patient's sodium rise to 8 mEq in 24 hours. - Hypertonic saline 3% 50 cc once -Monitor neuro checks Acute norovirus gastroenteritis/Campylobacter colitis -supportive care and azithromycin due to presumed immunosuppression of chronic alcoholism. Questionable colitis. Patient meets the criteria for sepsis. -white blood count 20.4 -received initial doses of Cipro and metronidazole. We will stop those secondary to Campylobacter treatment. -Follow-up on the blood cultures Alcoholic hepatitis. Total bilirubin 11.9, lipase 2928. Modestly elevated ALT/AST/alkaline phosphatase. Check for acute viral hepatitis. Avoid potentially hepatotoxic medications. Monitor closely. Elevated lipase without any clinical symptoms of pancreatitis. Cholesterol 257 and triglycerides 151. Symptomatic treatment with fluids, pain control and antiemetics as needed. Follow-up lipase 1479. Severe acute on chronic Protein Calorie Malnutrition r/t inadequate protein and nutrient intake in setting of excessive EtOH consumption as evidenced by consumption of 3, 24 oz cans of malt liquor daily, no intake besides beer for 2 weeks (severe) and only 1 meal per day meeting <75% of estimated energy needs for >6 months (severe) [facility] Medical History (Updated 11/28/24 @ 17:40 by Vimal Garcia MD) Alcoholic liver disease Hepatomegaly Alcoholic pancreatitis Alcohol intoxication No significant medical problems Social History household members: significant other and children Smoking Status: Former smoker alcohol intake: current Meds Home Medications and Allergies Home Medications ?Medication ?Instructions ?Recorded ?Confirmed ?Type clonidine HCl 0.1 mg tablet 0.1 mg PO BID 11/27/24 11/27/24 History gabapentin 300 mg capsule 300 mg PO 3XD 11/27/24 11/27/24 History hydroxyzine HCl 50 mg tablet 50 mg PO 3XD PRN anxiety 11/27/24 11/27/24 History Allergies Allergy/AdvReac Type Severity Reaction Status Date / Time No Known Drug Allergies Allergy Verified 11/27/24 18:21 Exam Vital Signs (past 8 hours): - 11/28/24 02:00 11/28/24 03:00 11/28/24 04:00 Temperature 98.3 F Pulse Rate 114 H 121 H 105 H Respiratory Rate 18 18 18 Blood Pressure 102/64 129/78 100/65 Pulse Oximetry 94 95 95 Oxygen Flow Rate 0 0 0 11/28/24 05:00 11/28/24 06:00 11/28/24 07:00 Temperature Pulse Rate 96 H 94 H 98 H Respiratory Rate 18 16 20 Blood Pressure 92/57 L 92/58 L 89/59 L Pulse Oximetry 94 95 95 Oxygen Flow Rate 0 0 0 Oxygen Delivery Method Room Air Oxygen Flow Rate 0 Objective Labs 11/27/24 18:25 11/28/24 15:10 Labs: Laboratory Results - last 24 hr 11/27/24 11/27/24 11/27/24 18:25 18:31 18:31 WBC 20.4 H RBC 3.83 L Hgb 12.7 L Hct 37.3 L MCV 97.5 MCH 33.2 MCHC 34.0 RDW 15.0 H Plt Count 140 L Neut % (Auto) Not Reportable Lymph % (Auto) Not Reportable Glenn % (Auto) Not Reportable Eos % (Auto) Not Reportable Baso % (Auto) Not Reportable Lymph # (Auto) Not Reportable Glenn # (Auto) Not Reportable Baso # (Auto) Not Reportable Total Counted 100 Seg Neutrophils % 54.0 Band Neutrophils % 29.0 H Lymphocytes % (Manual) 6.0 L Atypical Lymphs % 6.0 H Monocytes % (Manual) 4.0 Eosinophils % (Manual) 1.0 L Neutrophils # (Manual) 30763 H Toxic Granulation Present H Toxic Vacuolation Pres RBC Morphology See below Macrocytosis 1+ H PT 15.7 H INR 1.4 H Sodium 116 L* Potassium 4.0 Chloride 80 L Carbon Dioxide 20 L BUN 3 L Creatinine 0.48 L Estimated GFR > 60 BUN/Creatinine Ratio 6.3 Glucose 107 H Lactate 2.7 H Calcium 7.8 L Magnesium Total Bilirubin 11.9 H Direct Bilirubin 9.8 H AST 230 H ALT 118 H Alkaline Phosphatase 349 H Ammonia 26 Total Protein 7.8 Albumin 3.5 Globulin 4.3 H Albumin/Globulin Ratio 0.8 L Triglycerides Cholesterol LDL Cholesterol, Calc HDL Cholesterol Lipase 2928 H Cancelled TSH 1.76 Urine Color Urine Appearance Urine pH Ur Specific [place] Urine Protein Urine Glucose (UA) Urine Ketones Urine Occult Blood Urine Nitrate Urine Bilirubin Ur Bilirubin Confirm Urine Urobilinogen Ur Leukocyte Esterase Urine RBC Urine WBC Ur Squamous Epith Cells Urine Bacteria Ur Culture Indicated? Vol Urine Centrifuged Ur Random Sodium Nasal Screen MRSA (PCR) Stl C. cayetanensis PCR Stool Rotavirus (PCR) Stool Adenovirus (PCR) Stool Astrovirus (PCR) Stool Cryptosporidium PCR Stl E.coli Shiga Tox PCR St Sh/Enteroin Ecoli PCR Stl Enterotoxigenic E PCR Stool EPEC (PCR) Stl E. histolytica PCR Stool Giardia Lamblia PCR Stool Sapovirus (PCR) Stl P. shigelloides PCR St Y.enterocolitica PCR Stool Vibrio (PCR) Stl Vibrio cholerae PCR Stl Enteroaggr Ecoli PCR Stl Norovirus GI/GII PCR U Opiates 300ng/mL cut Ur Oxycodone Screen Urine Methadone Screen Ur Barbiturates Screen U Tricyclic Antidepress Ur Phencyclidine Scrn Ur Amphetamines Screen U Methamphetamines Scrn Ur MDMA Scrn (Ecstasy) U Benzodiazepines Scrn Urine Cocaine Screen U Marijuana (THC) Screen Urine Specific [place] Ethyl Alcohol 193 H Ur Creatinine Campylobacter (PCR) C. difficile Tox (PCR) Salmonella (PCR) 11/27/24 11/27/24 11/27/24 20:25 20:27 20:27 WBC RBC Hgb Hct MCV MCH MCHC RDW Plt Count Neut % (Auto) Lymph % (Auto) Glenn % (Auto) Eos % (Auto) Baso % (Auto) Lymph # (Auto) Glenn # (Auto) Baso # (Auto) Total Counted Seg Neutrophils % Band Neutrophils % Lymphocytes % (Manual) Atypical Lymphs % Monocytes % (Manual) Eosinophils % (Manual) Neutrophils # (Manual) Toxic Granulation Toxic Vacuolation RBC Morphology Macrocytosis PT INR Sodium Potassium Chloride Carbon Dioxide BUN Creatinine Estimated GFR BUN/Creatinine Ratio Glucose Lactate Calcium Magnesium Total Bilirubin Direct Bilirubin AST ALT Alkaline Phosphatase Ammonia Total Protein Albumin Globulin Albumin/Globulin Ratio Triglycerides Cholesterol LDL Cholesterol, Calc HDL Cholesterol Lipase TSH Urine Color Yellow Urine Appearance Clear Urine pH 6.5 Normal Ur Specific [place] <=1.005 Urine Protein Negative Urine Glucose (UA) Negative Urine Ketones Trace H Urine Occult Blood Negative Urine Nitrate Negative Urine Bilirubin 2+ H Ur Bilirubin Confirm Positive H Urine Urobilinogen 0.2 Ur Leukocyte Esterase Negative Urine RBC 0-1/hpf Urine WBC None seen Ur Squamous Epith Cells 0-1 /hpf Urine Bacteria None seen Ur Culture Indicated? Cult not indicated Vol Urine Centrifuged 10ml (spun) Ur Random Sodium < 5 L Nasal Screen MRSA (PCR) Stl C. cayetanensis PCR Not detected Stool Rotavirus (PCR) Not detected Stool Adenovirus (PCR) Not detected Stool Astrovirus (PCR) Not detected Stool Cryptosporidium PCR Not detected Stl E.coli Shiga Tox PCR Not detected St Sh/Enteroin Ecoli PCR Not detected Stl Enterotoxigenic E PCR Not detected Stool EPEC (PCR) Not detected Stl E. histolytica PCR Not detected Stool Giardia Lamblia PCR Not detected Stool Sapovirus (PCR) Not detected Stl P. shigelloides PCR Not detected St Y.enterocolitica PCR Not detected Stool Vibrio (PCR) Not detected Stl Vibrio cholerae PCR Not detected Stl Enteroaggr Ecoli PCR Not detected Stl Norovirus GI/GII PCR Detected U Opiates 300ng/mL cut Negative Ur Oxycodone Screen Negative Urine Methadone Screen Negative Ur Barbiturates Screen Negative U Tricyclic Antidepress Negative Ur Phencyclidine Scrn Negative Ur Amphetamines Screen Negative U Methamphetamines Scrn Negative Ur MDMA Scrn (Ecstasy) Negative U Benzodiazepines Scrn Negative Urine Cocaine Screen Negative U Marijuana (THC) Screen Negative Urine Specific [place] Normal Ethyl Alcohol Ur Creatinine Normal Campylobacter (PCR) Detected C. difficile Tox (PCR) Not detected Salmonella (PCR) Not detected 11/27/24 11/27/24 11/27/24 21:58 22:45 22:45 WBC RBC Hgb Hct MCV MCH MCHC RDW Plt Count Neut % (Auto) Lymph % (Auto) Glenn % (Auto) Eos % (Auto) Baso % (Auto) Lymph # (Auto) Glenn # (Auto) Baso # (Auto) Total Counted Seg Neutrophils % Band Neutrophils % Lymphocytes % (Manual) Atypical Lymphs % Monocytes % (Manual) Eosinophils % (Manual) Neutrophils # (Manual) Toxic Granulation Toxic Vacuolation RBC Morphology Macrocytosis PT INR Sodium 120 L Cancelled Potassium 3.5 Chloride 85 L Carbon Dioxide 23 BUN 3 L Creatinine 0.52 L Estimated GFR > 60 BUN/Creatinine Ratio 5.8 L Glucose 90 Lactate 2.0 Calcium 7.4 L Magnesium Total Bilirubin Direct Bilirubin AST ALT Alkaline Phosphatase Ammonia Total Protein Albumin Globulin Albumin/Globulin Ratio Triglycerides 151 H Cholesterol 257 H LDL Cholesterol, Calc 196 H HDL Cholesterol 31 L Lipase TSH Urine Color Urine Appearance Urine pH Ur Specific [place] Urine Protein Urine Glucose (UA) Urine Ketones Urine Occult Blood Urine Nitrate Urine Bilirubin Ur Bilirubin Confirm Urine Urobilinogen Ur Leukocyte Esterase Urine RBC Urine WBC Ur Squamous Epith Cells Urine Bacteria Ur Culture Indicated? Vol Urine Centrifuged Ur Random Sodium Nasal Screen MRSA (PCR) Not detected Stl C. cayetanensis PCR Stool Rotavirus (PCR) Stool Adenovirus (PCR) Stool Astrovirus (PCR) Stool Cryptosporidium PCR Stl E.coli Shiga Tox PCR St Sh/Enteroin Ecoli PCR Stl Enterotoxigenic E PCR Stool EPEC (PCR) Stl E. histolytica PCR Stool Giardia Lamblia PCR Stool Sapovirus (PCR) Stl P. shigelloides PCR St Y.enterocolitica PCR Stool Vibrio (PCR) Stl Vibrio cholerae PCR Stl Enteroaggr Ecoli PCR Stl Norovirus GI/GII PCR U Opiates 300ng/mL cut Ur Oxycodone Screen Urine Methadone Screen Ur Barbiturates Screen U Tricyclic Antidepress Ur Phencyclidine Scrn Ur Amphetamines Screen U Methamphetamines Scrn Ur MDMA Scrn (Ecstasy) U Benzodiazepines Scrn Urine Cocaine Screen U Marijuana (THC) Screen Urine Specific [place] Ethyl Alcohol Ur Creatinine Campylobacter (PCR) C. difficile Tox (PCR) Salmonella (PCR) 11/28/24 11/28/24 11/28/24 00:55 03:40 04:55 WBC RBC Hgb Hct MCV MCH MCHC RDW Plt Count Neut % (Auto) Lymph % (Auto) Glenn % (Auto) Eos % (Auto) Baso % (Auto) Lymph # (Auto) Glenn # (Auto) Baso # (Auto) Total Counted Seg Neutrophils % Band Neutrophils % Lymphocytes % (Manual) Atypical Lymphs % Monocytes % (Manual) Eosinophils % (Manual) Neutrophils # (Manual) Toxic Granulation Toxic Vacuolation RBC Morphology Macrocytosis PT INR Sodium 120 L 119 L* 121 L Potassium Chloride Carbon Dioxide BUN Creatinine Estimated GFR BUN/Creatinine Ratio Glucose Lactate Calcium Magnesium Total Bilirubin Direct Bilirubin AST ALT Alkaline Phosphatase Ammonia Total Protein Albumin Globulin Albumin/Globulin Ratio Triglycerides Cholesterol LDL Cholesterol, Calc HDL Cholesterol Lipase TSH Urine Color Urine Appearance Urine pH Ur Specific [place] Urine Protein Urine Glucose (UA) Urine Ketones Urine Occult Blood Urine Nitrate Urine Bilirubin Ur Bilirubin Confirm Urine Urobilinogen Ur Leukocyte Esterase Urine RBC Urine WBC Ur Squamous Epith Cells Urine Bacteria Ur Culture Indicated? Vol Urine Centrifuged Ur Random Sodium Nasal Screen MRSA (PCR) Stl C. cayetanensis PCR Stool Rotavirus (PCR) Stool Adenovirus (PCR) Stool Astrovirus (PCR) Stool Cryptosporidium PCR Stl E.coli Shiga Tox PCR St Sh/Enteroin Ecoli PCR Stl Enterotoxigenic E PCR Stool EPEC (PCR) Stl E. histolytica PCR Stool Giardia Lamblia PCR Stool Sapovirus (PCR) Stl P. shigelloides PCR St Y.enterocolitica PCR Stool Vibrio (PCR) Stl Vibrio cholerae PCR Stl Enteroaggr Ecoli PCR Stl Norovirus GI/GII PCR U Opiates 300ng/mL cut Ur Oxycodone Screen Urine Methadone Screen Ur Barbiturates Screen U Tricyclic Antidepress Ur Phencyclidine Scrn Ur Amphetamines Screen U Methamphetamines Scrn Ur MDMA Scrn (Ecstasy) U Benzodiazepines Scrn Urine Cocaine Screen U Marijuana (THC) Screen Urine Specific [place] Ethyl Alcohol Ur Creatinine Campylobacter (PCR) C. difficile Tox (PCR) Salmonella (PCR) 11/28/24 06:07 WBC RBC Hgb Hct MCV MCH MCHC RDW Plt Count Neut % (Auto) Lymph % (Auto) [place] % (Auto) Eos % (Auto) Baso % (Auto) Lymph # (Auto) [place] # (Auto) Baso # (Auto) Total Counted Seg Neutrophils % Band Neutrophils % Lymphocytes % (Manual) Atypical Lymphs % Monocytes % (Manual) Eosinophils % (Manual) Neutrophils # (Manual) Toxic Granulation Toxic Vacuolation RBC Morphology Macrocytosis PT INR Sodium 120 L Potassium 3.4 Chloride 90 L Carbon Dioxide 21 L BUN 4 L Creatinine 0.54 L Estimated GFR > 60 BUN/Creatinine Ratio 7.4 Glucose 106 H Lactate 1.5 Calcium 7.2 L Magnesium 1.7 Total Bilirubin 9.9 H Direct Bilirubin AST 159 H ALT 96 H Alkaline Phosphatase 262 H Ammonia Total Protein 6.4 Albumin 2.7 L Globulin 3.7 Albumin/Globulin Ratio 0.7 L Triglycerides Cholesterol LDL Cholesterol, Calc HDL Cholesterol Lipase 1479 H TSH Urine Color Urine Appearance Urine pH Ur Specific [place] Urine Protein Urine Glucose (UA) Urine Ketones Urine Occult Blood Urine Nitrate Urine Bilirubin Ur Bilirubin Confirm Urine Urobilinogen Ur Leukocyte Esterase Urine RBC Urine WBC Ur Squamous Epith Cells Urine Bacteria Ur Culture Indicated? Vol Urine Centrifuged Ur Random Sodium Nasal Screen MRSA (PCR) Stl C. cayetanensis PCR Stool Rotavirus (PCR) Stool Adenovirus (PCR) Stool Astrovirus (PCR) Stool Cryptosporidium PCR Stl E.coli Shiga Tox PCR St Sh/Enteroin Ecoli PCR Stl Enterotoxigenic E PCR Stool EPEC (PCR) Stl E. histolytica PCR Stool Giardia Lamblia PCR Stool Sapovirus (PCR) Stl P. shigelloides PCR St Y.enterocolitica PCR Stool Vibrio (PCR) Stl Vibrio cholerae PCR Stl Enteroaggr Ecoli PCR Stl Norovirus GI/GII PCR U Opiates 300ng/mL cut Ur Oxycodone Screen Urine Methadone Screen Ur Barbiturates Screen U Tricyclic Antidepress Ur Phencyclidine Scrn Ur Amphetamines Screen U Methamphetamines Scrn Ur MDMA Scrn (Ecstasy) U Benzodiazepines Scrn Urine Cocaine Screen U Marijuana (THC) Screen Urine Specific [place] Ethyl Alcohol Ur Creatinine Campylobacter (PCR) C. difficile Tox (PCR) Salmonella (PCR) Assessment & Plan Time-Based Coding :: [TOTAL MINUTES] spent with patient and on the chart (including review of chart, obtaining history, exam, reviewing outside data, placing orders, documenting exam and treatment plan, and counseling patient) on [DATE]. Quality VTE Deep Vein Thrombosis/Pulmonary Embolism Present on Admission: No
[2024-11-28] MEDS: SODIUM CHLORIDE 0.9% 1,000 ML 100 ML IV ×2 (08:30→18:52)
[2024-11-28] MEDS: FAMOTIDINE 20 MG/2 ML VIAL IV ×2 (09:02→21:27)
[2024-11-28 09:37] LABS: Sodium 121 mmol/L (137-145)
[2024-11-28 11:04] LABS: Sodium 122 mmol/L (137-145)
[2024-11-28] MEDS: dexmedeTOMIDine in 0.9 % NaCL 400 MCG/100 ML PLAST..BAG 11.7 MCG IV (11:24)
[2024-11-28] MEDS: METOCLOPRAMIDE 10 MG/2 ML INJ IV ×2 (13:31→21:27)
[2024-11-28 13:36] LABS: Sodium 120 mmol/L (137-145)
[2024-11-28] MEDS: MAGNESIUM CHLORIDE 64 MG TABLET 128 MG PO (14:22)
--- NOTE | 2024-11-28 15:17 | CM.DPNOTE ---
DCP note APPRENTICE TECHNICIAN reviewed EMR last CI. getting precedex now. per RN sleepy but able to hold conversations. pt interested in rehab. some of pt labs abnormal. pos for norovirus. per RN, pt diarrhea has improved today. Barrier to INPT rehab could be the norovirus. may need to be 10 days post pos test before facility can accept. CM Team will review with pt tomorrow on DCP options/preference VICKY Funes
--- NOTE | 2024-11-28 15:20 | DIET.CONS ---
Addendum entered by Christy Castro 11/28/24 15:46: Consulted for alcoholic malnutrition. See assessment below. Dx sent over to hospitalist. Original Note: Dietary Consultation Note Admission Date: 11/27/2024 20:37 Assessment: 44 y M admitted for EtOH withdrawal. Dietitian screened for MNA score. Per RN, pt c/o difficulty with swallowing, is able to get down sips of ensure and applesauce, had a few bites of lunch today Met with pt at bedside who reports 2 weeks of no food intake, nothing besides beer because he threw everything else back up. Before then, usual intake of 1 regular sized frozen meal per day. Does report difficulty swallowing still, but able to do small sips. Ensure vanilla at bedside, opened, with applesauce and soda. C/o distension in abd area with food intake. Hx of hepatic steatosis. Per SENIOR POLICY ADVISOR note -pt reports consumption of 3, 24 oz cans of malt liquor daily x10yrs Nutrition focused physical exam findings of mild muscle loss temples, mild-moderate subcutaneous fat loss buccal and orbital fat pads Ht: 162.56 cm Wt: 78 kg BMI: 29.5 UBW: Per pt 180# (81.8 kg) Last BM: 11/28/24 (11/28/24 06:49) MNA: 9 Arvind Score: 20 Diet: 11/27/24 18:23 NPO Diet Diet Modifications: NPO Type: NPO except for Meds 11/28/24 Breakfast Heart Healthy Diet Diet Modifications: Sodium Level: 2 gm Sodium Food Texture: Level 7 - Regular Liquid Consistency: Level 0 - Thin Labs: RBC 3.83 X10^6/uL (4.5-5.9) L 11/27/24 18:25 Hgb 12.7 g/dL (13.5-17.5) L 11/27/24 18:25 Hct 37.3 % (41-53) L 11/27/24 18: Creatinine 0.54 mg/dL (0.66-1.25) L 11/28/24 06:07 Lactate 1.5 mmol/L (0.7-2.1) 11/28/24 06:07 Nutrition Diagnosis: Severe acute on chronic Protein Calorie Malnutrition r/t inadequate protein and nutrient intake in setting of excessive EtOH consumption as evidenced by consumption of 3, 24 oz cans of malt liquor daily, no intake besides beer for 2 weeks (severe) and only 1 meal per day meeting <75% of estimated energy needs for >6 months (severe) Interventions: Agreeable to sipping on Ensures BID as tolerated Provided educ on energy-protein needs, having 3 meals per day, advancing PO intakes as tolerated to meet needs EER: 1800 kcals (23 kcals per kg per BMI) 90 g protein (1.25g/kg per PCM) Monitoring/Evaluations: PO intakes, ONS tolerance Electronically Signed by: Christy Castro 11/28/24 15:20 Clinical Dietitian [address] [id number]
[2024-11-28 15:39] LABS: Sodium 121 mmol/L (137-145)
--- NOTE | 2024-11-28 16:40 | PC.NURSE ---
Update on low BP was sent to Dr. Garcia. Continue to follow.
[2024-11-28] MEDS: IBUPROFEN 400 MG TABLET PO (18:13)
[2024-11-28] MEDS: THIAMINE 100 MG TABLET PO (18:13)
[2024-11-28 19:47] LABS: Sodium 121 mmol/L (137-145)
[2024-11-28 23:29] LABS: Blood Urea Nitrogen 6 mg/dL (9-20); Calcium 7.9 mg/dL (8.4-10.2); Carbon Dioxide 22 mmol/L (22-32); Chloride 92 mmol/L (98-107); Estimated Glomerular Filt Rate > 60 mL/min (>60); Glucose 137 mg/dL (70-99); HEMOLYSIS < 15 (0-50); Potassium 3.4 mmol/L (3.4-5.1); Sodium 122 mmol/L (137-145)
[2024-11-29] VITALS (10 sets, daily range): BP systolic 95–123; BP diastolic 52–80; PULSE 105–138; RESP 18–30; TEMP 36.4–37.1; O2SAT 96–97
[2024-11-29] MEDS: MORPHINE 4 MG/ML INJ 3 MG IV ×3 (02:27→17:33)
[2024-11-29 03:33] LABS: Sodium 123 mmol/L (137-145)
[2024-11-29 07:12] LABS: Alanine Aminotransferase 95 IU/L (<50); Albumin 2.8 g/dL (3.5-5.0); Albumin Globulin Ratio 0.7 (1.0-2.8); Alkaline Phosphatase 336 U/L (38-126); Blood Urea Nitrogen 7 mg/dL (9-20); Calcium 8.1 mg/dL (8.4-10.2); Carbon Dioxide 24 mmol/L (22-32); Chloride 92 mmol/L (98-107); Estimated Glomerular Filt Rate > 60 mL/min (>60); Globulin 4.2 g/dL (1.7-4.1); Glucose 106 mg/dL (70-99); HEMOLYSIS < 15 (0-50); Magnesium 1.8 mg/dL (1.6-2.3); Potassium 3.5 mmol/L (3.4-5.1); Sodium 122 mmol/L (137-145); Total Protein 7.0 g/dL (6.3-8.2)
[2024-11-29 07:36] LABS: Lipase 1194 U/L (23-300)
--- NOTE | 2024-11-29 07:59 | PM.PN.1 ---
Subjective Subjective Date Patient Seen: 11/29/24 Interval history: This is a 44 years old male with a history of longstanding heavy alcohol abuse who presented to the ED with generalized weakness, feeling sleepy and not eating much. His last alcoholic drink was this morning. He drinks every day. He has had diarrhea in the last week and was found to have Norovirus. He has had no fever, shortness of breath, chest pain, palpitations, nausea, vomiting, abdominal pain, diarrhea or dysuria. Denies any alcohol-related seizures in the past. His last hospitalization was 7 months ago for EtOH withdrawal. He had declined substance abuse treatment at that time but says that he is willing to go through a program now. The WBC is 20.4, H&H 12.7 and 37.3, platelets 140, sodium 116, potassium 4, bicarb 20, creatinine 0.48, INR 1.4, glucose 107, lactate 2.7, calcium 7.8, total bilirubin 11.9, AST 230, ALT 118, ammonia level 26, lipase 2928, UA negative, U tox negative, alcohol level 190. Abdominal CT scans shows marked hepatic steatosis hepatomegaly. There are also partially seen suspected enlarged lymph nodes in the lower mediastinum and gabrielle. There is mild wall thickening of the anterior urinary bladder. He was initially given IV Protonix, Zofran, ciprofloxacin, Flagyl, thiamine and fluid bolus. Overnight he required Precedex for a rising level of alcohol withdrawal agitation. His blood pressure has been in the 80-90 range systolic today so that will be stopped and we will use lorazepam instead. 11/29: He has continued to experience tremulous agitation requiring lorazepam dosing several times overnight so will be put on a routine dose of Librium to decrease that need. The sodium level has stabilized at 122 with a potassium of 3.5 and a creatinine of 0.57. The total bilirubin has risen to 12.2. The AST, ALT have dropped but the alk-phos has risen slightly to 336. The lipase has dropped to 1194. His heart rate continues in the 120-130 range. Meds Home Medications and Allergies Home Medications ?Medication ?Instructions ?Recorded ?Confirmed ?Type clonidine HCl 0.1 mg tablet 0.1 mg PO BID 11/27/24 11/27/24 History gabapentin 300 mg capsule 300 mg PO 3XD 11/27/24 11/27/24 History hydroxyzine HCl 50 mg tablet 50 mg PO 3XD PRN anxiety 11/27/24 11/27/24 History Allergies Allergy/AdvReac Type Severity Reaction Status Date / Time No Known Drug Allergies Allergy Verified 11/27/24 18:21 Assessment & Plan Alcohol withdrawal. Present on admission, active. -Continue thiamine and appropriate supplementation with folate. -Ativan IV/p.o. per [facility] protocol, add Librium 25 mg t.i.d. -monitor electrolytes, magnesium and phosphate -sr. social media & mobile manager consult for alcohol abuse rehab program. -experienced significant hypotension on Precedex so we will try to avoid it. -Rug Cutter Helper patient about the health risks of alcohol and encourage quitting when patient stable and alcohol withdrawal resolved. collar worker referral for alcohol abuse rehab programs. Hyponatremia of 116, up to 122 with supplementation. -gently hydrate patient and check patient's sodium daily. -check urine sodium and urine/serum osmolality -Limits patient's sodium rise to 8 mEq in 24 hours. - Hypertonic saline 3% 50 cc once, completed -Monitor neuro checks Acute norovirus gastroenteritis/Campylobacter colitis -supportive care and azithromycin due to presumed immunosuppression of chronic alcoholism. Questionable colitis. Patient meets the criteria for sepsis. -white blood count 20.4 -received initial doses of Cipro and metronidazole. We will stop those secondary to Campylobacter treatment. -Follow-up on the blood cultures Alcoholic hepatitis. Total bilirubin 12.2, lipase 1194. Modestly elevated ALT/AST/alkaline phosphatase. Check for acute viral hepatitis. Avoid potentially hepatotoxic medications. Monitor closely. Elevated lipase without any clinical symptoms of pancreatitis. Cholesterol 257 and triglycerides 151. Symptomatic treatment with fluids, pain control and antiemetics as needed. Follow-up lipase 1479. Severe acute on chronic Protein Calorie Malnutrition r/t inadequate protein and nutrient intake in setting of excessive EtOH consumption as evidenced by consumption of 3, 24 oz cans of malt liquor daily, no intake besides beer for 2 weeks (severe) and only 1 meal per day meeting <75% of estimated energy needs for >6 months (severe) Exam Vital Signs (past 8 hours): - 11/29/24 00:06 11/29/24 02:46 11/29/24 04:00 Temperature 97.6 F 97.8 F Pulse Rate 105 H 117 H 118 H Respiratory Rate 18 19 18 Blood Pressure 103/67 111/63 95/80 Pulse Oximetry 96 96 Oxygen Flow Rate 0 0 09/13/25 06:47 Temperature Pulse Rate 123 H Respiratory Rate 21 Blood Pressure 101/67 Pulse Oximetry Oxygen Flow Rate Oxygen Delivery Method Room Air Oxygen Flow Rate 0 Narrative Exam Narrative: Not alert. Patient is recently sedated from lorazepam and sleeps through my visit. No apparent distress. Heart is regular rate and rhythm without murmur Lungs are clear to auscultation bilaterally Abdomen is soft and does not feel distended today. No apparent tenderness. Bowel sounds are active. Extremities have no ankle edema. Objective Labs 11/27/24 18:25 11/29/24 06:40 Labs: Laboratory Results - last 24 hr 11/28/24 11/28/24 11/28/24 09:10 10:50 12:40 Sodium 121 L 122 L 120 L Potassium Chloride Carbon Dioxide BUN Creatinine Estimated GFR BUN/Creatinine Ratio Glucose Calcium Magnesium Total Bilirubin AST ALT Alkaline Phosphatase Total Protein Albumin Globulin Albumin/Globulin Ratio Lipase 11/28/24 11/28/24 11/28/24 15:10 19:30 23:05 Sodium 121 L 121 L 122 L Potassium 3.4 Chloride 92 L Carbon Dioxide 22 BUN 6 L Creatinine 0.59 L Estimated GFR > 60 BUN/Creatinine Ratio 10.2 Glucose 137 H Calcium 7.9 L Magnesium Total Bilirubin AST ALT Alkaline Phosphatase Total Protein Albumin Globulin Albumin/Globulin Ratio Lipase 11/29/24 11/29/24 03:15 06:40 Sodium 123 L 122 L Potassium 3.5 Chloride 92 L Carbon Dioxide 24 BUN 7 L Creatinine 0.57 L Estimated GFR > 60 BUN/Creatinine Ratio 12.3 Glucose 106 H Calcium 8.1 L Magnesium 1.8 Total Bilirubin 12.2 H AST 144 H ALT 95 H Alkaline Phosphatase 336 H Total Protein 7.0 Albumin 2.8 L Globulin 4.2 H Albumin/Globulin Ratio 0.7 L Lipase 1194 H [facility] Medical History (Updated 11/28/24 @ 17:40 by Vimal Garcia MD) Alcoholic liver disease Hepatomegaly Alcoholic pancreatitis Alcohol intoxication No significant medical problems Social History household members: significant other and children Smoking Status: Former smoker alcohol intake: current Assessment & Plan Time-Based Coding :: [TOTAL MINUTES] spent with patient and on the chart (including review of chart, obtaining history, exam, reviewing outside data, placing orders, documenting exam and treatment plan, and counseling patient) on [DATE]. Quality VTE Deep Vein Thrombosis/Pulmonary Embolism Present on Admission: No
[2024-11-29] MEDS: SODIUM CHLORIDE 0.9% 1,000 ML 100 ML IV ×2 (08:02→17:33)
[2024-11-29] MEDS: MULTIVITAMIN 1 TABLET 1 TAB PO (08:54)
[2024-11-29] MEDS: AZITHROMYCIN 250 MG TABLET PO (08:54)
[2024-11-29] MEDS: THIAMINE 100 MG TABLET PO (08:54)
[2024-11-29] MEDS: FOLIC ACID 1 MG TABLET PO (08:54)
[2024-11-29] MEDS: FAMOTIDINE 20 MG/2 ML VIAL IV ×2 (08:54→20:03)
--- NOTE | 2024-11-29 09:53 | PC.NURSE ---
Around 0800 mistakenly pulled secondary ativan order 0.25mg prn anxiety when intending to administer 2mg PRN ciwa score protocol. Scanned and administered 2mg per CIWA protocol for CIWA 16, see MAR. Contacted pharmacist regarding pyxis indicating undocumented waste when full dose of 2mg was administered.
--- NOTE | 2024-11-29 11:55 | CM.DPC ---
DCP ETOH tx Cont: Per MD, pt remains on withdrawal treatment and per RN has had CIWA scores 16-18 today. Pt had expressed interest in Inpt ETOH tx at admission. SW attempted to meet bedside with pt to discuss Inpt ETOH tx (pt with hx of Detox but no Inpt Tx so far due to being employed but has since lost his employment) and the potential barriers of his straight Medicaid insurance and his current Norovirus+. Pt unable to keep his eyes open and was able to state interest in detox but unable to participate further in goal directed discussion. SW to follow for further bedside discussion when pt more medically appropriate to participate. VICKY Quintero
[2024-11-29] MEDS: METOCLOPRAMIDE 10 MG/2 ML INJ IV ×2 (14:13→20:06)
[2024-11-29] MEDS: SODIUM CHLORIDE 0.9% 1,000 ML 1000 ML IV (17:33)
--- NOTE | 2024-11-29 21:19 | PC.NURSE ---
Patient tachycardic with HR in the 130s-140s. BP 118/71. Patient denies chest pain or SOB. Notified time motion analyst
[2024-11-29 21:36] LABS: Blood Urea Nitrogen 7 mg/dL (9-20); Calcium 7.8 mg/dL (8.4-10.2); Carbon Dioxide 23 mmol/L (22-32); Chloride 97 mmol/L (98-107); Estimated Glomerular Filt Rate > 60 mL/min (>60); Glucose 120 mg/dL (70-99); HEMOLYSIS < 15 (0-50); Potassium 3.7 mmol/L (3.4-5.1); Sodium 125 mmol/L (137-145)
[2024-11-30] VITALS (11 sets, daily range): BP systolic 113–139; BP diastolic 63–83; PULSE 128–148; RESP 15–32; TEMP 36.3–38.3; O2SAT 96–100
[2024-11-30] MEDS: METOCLOPRAMIDE 10 MG/2 ML INJ IV ×3 (04:30→20:30)
[2024-11-30] MEDS: SODIUM CHLORIDE 0.9% 1,000 ML 100 ML IV (05:18)
--- NOTE | 2024-11-30 07:20 | PM.PN.1 ---
Subjective Subjective Date Patient Seen: 11/30/24 Interval history: This is a 44 years old male with a history of longstanding heavy alcohol abuse who presented to the ED with generalized weakness, feeling sleepy and not eating much. His last alcoholic drink was this morning. He drinks every day. He has had diarrhea in the last week and was found to have Norovirus. He has had no fever, shortness of breath, chest pain, palpitations, nausea, vomiting, abdominal pain, diarrhea or dysuria. Denies any alcohol-related seizures in the past. His last hospitalization was 7 months ago for EtOH withdrawal. He had declined substance abuse treatment at that time but says that he is willing to go through a program now. The WBC is 20.4, H&H 12.7 and 37.3, platelets 140, sodium 116, potassium 4, bicarb 20, creatinine 0.48, INR 1.4, glucose 107, lactate 2.7, calcium 7.8, total bilirubin 11.9, AST 230, ALT 118, ammonia level 26, lipase 2928, UA negative, U tox negative, alcohol level 190. Abdominal CT scans shows marked hepatic steatosis hepatomegaly. There are also partially seen suspected enlarged lymph nodes in the lower mediastinum and gabrielle. There is mild wall thickening of the anterior urinary bladder. He was initially given IV Protonix, Zofran, ciprofloxacin, Flagyl, thiamine and fluid bolus. Overnight he required Precedex for a rising level of alcohol withdrawal agitation. His blood pressure has been in the 80-90 range systolic today so that will be stopped and we will use lorazepam instead. 11/29: He has continued to experience tremulous agitation requiring lorazepam dosing several times overnight so will be put on a routine dose of Librium to decrease that need. The sodium level has stabilized at 122 with a potassium of 3.5 and a creatinine of 0.57. The total bilirubin has risen to 12.2. The AST, ALT have dropped but the alk-phos has risen slightly to 336. The lipase has dropped to 1194. His heart rate continues in the 120-130 range. 11/30: He continues to be somewhat over-sedated with the 25 mg of Librium t.i.d.. That will be decreased to 10 mg. An ammonia level will be rechecked. It was normal originally. The total bilirubin moraima again to 13.1. The AST and ALT have decreased. Alkaline phosphatase went up as did the lipase. The white blood count is 20.8 with a hemoglobin of 12.1. The sodium level is 128. He continues to be significantly tachycardic in the 140s with sinus tachycardia on telemetry. When I meet him and asked about abdominal pain he says he has ?a little bit. ? The CT scan is read as showing the steatosis/cirrhosis with a normal pancreas and a small new pleural effusion. No other significant point of infection is seen. We will add Zosyn to the azithromycin which he is on already for the Campylobacter. Meds Home Medications and Allergies Home Medications ?Medication ?Instructions ?Recorded ?Confirmed ?Type clonidine HCl 0.1 mg tablet 0.1 mg PO BID 11/27/24 11/27/24 History gabapentin 300 mg capsule 300 mg PO 3XD 11/27/24 11/27/24 History hydroxyzine HCl 50 mg tablet 50 mg PO 3XD PRN anxiety 11/27/24 11/27/24 History Allergies Allergy/AdvReac Type Severity Reaction Status Date / Time No Known Drug Allergies Allergy Verified 11/27/24 18:21 Alcohol withdrawal. Present on admission, active. -Continue thiamine and appropriate supplementation with folate. -Ativan IV/p.o. per CIWA protocol, Librium 25 mg t.i.d., decreased to 10 mg due to over-sedation on 11/30. -persistent sinus tachycardia likely withdrawal related, continue to evaluate regularly for sepsis. -monitor electrolytes, magnesium and phosphate -social media job titles consult for alcohol abuse rehab program. -experienced significant hypotension on Precedex so we will try to avoid it. -Weed Cooking Operator patient about the health risks of alcohol and encourage quitting when patient stable and alcohol withdrawal resolved. shearing shed worker referral for alcohol abuse rehab programs. Hyponatremia of 116, up to 128 with supplementation. -gently hydrate patient and check patient's sodium daily. -check urine sodium and urine/serum osmolality -Limits patient's sodium rise to 8 mEq in 24 hours. - Hypertonic saline 3% 50 cc once, completed -Monitor neuro checks Acute norovirus gastroenteritis/Campylobacter colitis -supportive care and azithromycin due to presumed immunosuppression of chronic alcoholism. Questionable colitis. Patient meets the criteria for sepsis. -white blood count 20.4 -received initial doses of Cipro and metronidazole. We will stop those secondary to Campylobacter treatment. -Follow-up on the blood cultures -resumed Zosyn IV on 11/[address]. Alcoholic hepatitis. Total bilirubin 13.1 lipase 1767. Modestly elevated ALT/AST/alkaline phosphatase. Checked for acute viral hepatitis. Avoid potentially hepatotoxic medications. Monitor closely. Elevated lipase without any clinical symptoms of pancreatitis. Cholesterol 257 and triglycerides 151. Symptomatic treatment with fluids, pain control and antiemetics as needed. Follow-up lipase 1767. Normal pancreas on follow-up CT scan 11/30. Severe acute on chronic Protein Calorie Malnutrition r/t inadequate protein and nutrient intake in setting of excessive EtOH consumption as evidenced by consumption of 3, 24 oz cans of malt liquor daily, no intake besides beer for 2 weeks (severe) and only 1 meal per day meeting <75% of estimated energy needs for >6 months (severe). Disposition: senior care facility or home once alcohol withdrawal and cirrhosis is stabilized. Exam Vital Signs (past 8 hours): - 11/30/24 00:03 11/30/24 02:09 11/30/24 04:00 Temperature 98.1 F 97.3 F L Pulse Rate 128 H 133 H 148 H Respiratory Rate 18 26 H 18 Blood Pressure 123/79 123/79 138/80 Pulse Oximetry 100 99 Oxygen Flow Rate 0 0 11/30/24 06:19 Temperature Pulse Rate 145 H Respiratory Rate 32 H Blood Pressure 130/80 Pulse Oximetry Oxygen Flow Rate Oxygen Delivery Method Room Air Oxygen Flow Rate 0 Narrative Exam Narrative: Sedated, wakes up briefly, appears to be receiving to high a dose of chlordiazepoxide. No apparent distress. Heart is tachycardic, regular rhythm, no murmur. Lungs are clear to auscultation bilaterally. Abdomen is soft, bowel sounds positive, nontender, moderate liver enlargement. There is no ankle edema. Objective Labs 11/30/24 08:37 11/30/24 08:37 Labs: Laboratory Results - last 24 hr 11/27/24 11/29/24 11/29/24 22:45 06:40 21:07 Sodium 125 L Potassium 3.7 Chloride 97 L Carbon Dioxide 23 BUN 7 L Creatinine 0.55 L Estimated GFR > 60 BUN/Creatinine Ratio 12.7 Glucose 120 H Calcium 7.8 L Ionized Calcium Monet 4.0 L Lipase 1194 H [facility] Medical History (Updated 11/28/24 @ 17:40 by Vimal Garcia MD) Alcoholic liver disease Hepatomegaly Alcoholic pancreatitis Alcohol intoxication No significant medical problems Social History household members: significant other and children Smoking Status: Former smoker alcohol intake: current Assessment & Plan Time-Based Coding :: [TOTAL MINUTES] spent with patient and on the chart (including review of chart, obtaining history, exam, reviewing outside data, placing orders, documenting exam and treatment plan, and counseling patient) on [DATE]. Quality VTE Deep Vein Thrombosis/Pulmonary Embolism Present on Admission: No
[2024-11-30] MEDS: THIAMINE 100 MG TABLET PO (08:23)
[2024-11-30] MEDS: MULTIVITAMIN 1 TABLET 1 TAB PO (08:23)
[2024-11-30] MEDS: FOLIC ACID 1 MG TABLET PO (08:23)
[2024-11-30] MEDS: FAMOTIDINE 20 MG/2 ML VIAL IV ×2 (08:24→20:30)
[2024-11-30] MEDS: AZITHROMYCIN 250 MG TABLET PO (08:24)
[2024-11-30] MEDS: MORPHINE 4 MG/ML INJ 3 MG IV ×2 (08:24→19:48)
[2024-11-30 08:47] LABS: Add Manual Diff / Slide Review YES; Hematocrit 35.6 % (41-53); Hemoglobin 12.1 g/dL (13.5-17.5); Mean Corpuscular HGB Conc 34.1 % (30-36); Mean Corpuscular Hemoglobin 33.2 PG (26-34); Mean Corpuscular Volume 97.4 fL (80-100); Platelet Count 160 X10^3/uL (150-400)
[2024-11-30 08:57] LABS: Alanine Aminotransferase 85 IU/L (<50); Albumin 2.8 g/dL (3.5-5.0); Albumin Globulin Ratio 0.7 (1.0-2.8); Alkaline Phosphatase 345 U/L (38-126); Band Neutrophils Percent 8.0 % (3-7); Blood Urea Nitrogen 6 mg/dL (9-20); Calcium 7.8 mg/dL (8.4-10.2); Carbon Dioxide 22 mmol/L (22-32); Chloride 99 mmol/L (98-107); Eosinophils Percent Manual 1.0 % (2-4); Estimated Glomerular Filt Rate > 60 mL/min (>60); Globulin 4.2 g/dL (1.7-4.1); Glucose 101 mg/dL (70-99); Lipase 1767 U/L (23-300); Lymphocytes Percent Manual 4.0 % (25-45); Magnesium 1.8 mg/dL (1.6-2.3); Monocytes Percent Manual 5.0 % (2-11); Neutrophils Absolute Manual 18720 /uL (3000-5900); Potassium 4.0 mmol/L (3.4-5.1); Segmented Neutrophils Percent 82.0 % (38-70); Sodium 128 mmol/L (137-145); Target Cells 1+; Total Cells Counted 100; Total Protein 7.0 g/dL (6.3-8.2)
[2024-11-30 08:58] LABS: HEMOLYSIS 25 (0-50)
--- NOTE | 2024-11-30 10:02 | DI.CT.S_ITS ---
PROCEDURE: CT CHEST ABD PEL W CON INDICATIONS: Sepsis TECHNIQUE: After the administration of intravenous contrast, 5 mm thick sections acquired from the lung apices to the symphysis. 5 mm coronal and sagittal reformats were performed, with additional 7 mm MIP reformats through the lungs. For radiation dose reduction, the following was used: automated exposure control, adjustment of mA and/or kV according to patient size. COMPARISON: None. FINDINGS: Image quality: Diagnostic. Mild motion artifact. CHEST: Lower Neck: No enlarged lymph nodes. Thyroid: No thyroid nodules which require sonographic follow up, per consensus guidelines. Axillae: No enlarged lymph nodes. Chest Wall: Unremarkable. Lungs and Pleura: There is a small right pleural effusion with compressive atelectasis, an interval change. A small amount of fluid extends into the minor fissure. There is no focal consolidation. No pneumothorax. No suspicious nodule which requires follow up. Airways are patent without endobronchial mass or debris. Heart: Heart size is normal. No pericardial effusion. Thoracic Vessels: The aorta and pulmonary arteries demonstrate normal size. Mediastinum and Marcie: Numerous mediastinal lymph nodes are mildly enlarged, measuring up to 1.3 cm in the short axis. Esophagus: No wall thickening. No hiatal hernia. ABDOMEN: Liver: The liver is again diffusely hypoattenuating with geographic areas of relative sparing. The umbilical vein is patent. No solid mass. Gallbladder: No radiopaque gallstones or wall thickening. Biliary ducts: No biliary dilation. Pancreas: No ductal dilation. Spleen: Size is within normal limits. Adrenal Glands: No adrenal nodules. 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 No hydronephrosis. No solid mass. No complex renal cystic lesion which requires follow up. Stomach and Bowel: Bowel is of normal caliber without obstruction. Peritoneum: Multiple lymph nodes are seen throughout the abdomen at the upper limits of normal size, the majority of which are adjacent to the pancreas. These are relatively unchanged compared to the prior exam. There is free fluid within the pelvis and along the right pericolic gutter which is increased compared to the previous exam. This is most notable about the cecum. There is no focal fluid collection or rim enhancing abscess. Ventral Wall: No significant ventral hernia. Abdominal Nodes: No retroperitoneal or mesenteric adenopathy by size criteria. Vessels: Aorta and inferior vena cava are normal in size. PELVIS: Pelvic Organs: Unremarkable. Bladder: No bladder wall thickening, accounting for underdistention. Pelvic Nodes: No enlarged lymph nodes. Miscellaneous: No inguinal hernias are seen. Subcutaneous edema is seen about the flanks and thighs. Bones: No aggressive osseous abnormality. IMPRESSION: Mediastinal lymphadenopathy and interval development of a small right pleural effusion without jerzy pneumonia. Unchanged hepatic hypoattenuation suggestive of hepatitis versus severe hepatic steatosis. Borderline upper abdominal lymphadenopathy and worsening free abdominal fluid without focal abscess or definite enterocolitis. Dictated by: Shavonne Trejo M.D. on 11/30/2024 at 9:52 Approved by: Shavonne Trejo M.D. on 11/30/2024 at 10:06
--- NOTE | 2024-11-30 10:40 | CM.DPNOTE ---
DCP note MENTAL HEALTH AIDES TEACHER reviewed EMR per provider, pt having more tachycardia today. re do head/chest/pelvis CT. CIWA remains 14 as of 399. CM team to follow for further bedside discussion when pt more medically appropriate to participate. VICKY Funes
[2024-11-30 11:56] LABS: Ammonia (NH3) 22 umol/L (9-30)
[2024-11-30] MEDS: SODIUM CHLORIDE 0.9% 1,000 ML 150 ML IV ×2 (12:29→20:33)
[2024-11-30] MEDS: PIPERACILLIN/TAZO 3.375 GM in SODIUM CHLORIDE 0.9% 100 ML IV ×2 (12:29→19:48)
--- NOTE | 2024-11-30 16:41 | DI.ECHO.S_ITS ---
[place] [facility] : : [address] : : [place] : : [id number] : : Phone: [phone] Echocardiogram Report + + :Name: TIAGO BLACKMON Study Date: 12/01/2024 Height: 64 in : :[facility] ReadingLocation: Weight: 171 lb : : Gender: Male BSA: 1.8 m2 : :: 1980 Age: 44 yrs BP: 129/86 mmHg: :Reason For Study: TACHYCARDIA : :Ordering Physician: LUI, : :JIMMY Hayes Performed By: Saul Garcia : :Referring: JIMMY POE : + + Interpretation Summary gas technician note: Technically difficult study with poor acoustic windows. 1) Normal left ventricular size and thickness with low normal systolc function (EF 50-55%). 2) Grossly, normal right ventricular size and function. 3) No significant valvular abnormalities. 4) No prior Echo available for comparison. Procedure: A two-dimensional transthoracic echocardiogram with color flow and Doppler was performed. A contrast injection of Definity was performed to improve assessment of LV function. The study quality was technically difficult. There is no prior echocardiogram noted for this patient. The patient was in a tachycardic rhythm during the exam. Left Ventricle: The left ventricle is normal in size. There is normal left ventricular wall thickness. There is no ventricular septal defect visualized. The ejection fraction is estimated to be 50-55%. Right Ventricle: The right ventricle is not well visualized. The right ventricle grossly appears normal in size with probable normal systolic function. Atria: The left atrium grossly appears normal in size. Right atrium not well visualized secondary to technical limitations. The interatrial septum is not well visualized. Mitral Valve: The mitral valve leaflets are slightly calcified. There is no mitral regurgitation noted. Aortic Valve: The aortic valve is trileaflet. The aortic valve opens well. There is no aortic valve stenosis. No aortic regurgitation is present. Tricuspid Valve: The tricuspid valve is not well visualized. There is trace tricuspid regurgitation. Pulmonic Valve: The pulmonic valve is not well visualized. There is trace pulmonic regurgitation. Great Vessels: The aortic root is normal size. The dimensions of the ascending aorta are normal. The pulmonary artery is not well visualized, but is probably normal size. The inferior vena cava was not visualized. Pericardium/ Pleura There is no pericardial effusion. MMode/2D Measurements & Calculations LVIDd: 4.0 cm LVOT diam: 1.9 cm LVIDs: 2.8 cm Ao root diam: 3.3 cm FS: 30.2 % asc Aorta Diam: 2.9 cm EPSS: 0.78 cm IVSd: 1.0 cm LVPWd: 0.99 cm LV grijalva. diameter/BSA (cm/m^2): 2.2 LV sys. diameter/BSA (cm/m^2): 1.5 LA A2 area: 11.8 cm2 LA A4 area: 11.5 cm2 LA length (vol): 4.2 cm LA vol: 27.6 ml LA vol index: 15.1 ml/m2 Doppler Measurements & Calculations Ao V2 max: 102.3 cm/sec LVOT Max Abdoulaye: 91.7 cm/sec Ao V2 mean: 69.7 cm/sec LV V1 max P.4 mmHg Ao max P.2 mmHg LV V1 VTI: 15.2 cm Ao mean P.2 mmHg PADMAJA(I,D): 3.4 cm2 Ao V2 VTI: 12.7 cm PADMAJA(V,D): 2.6 cm2 sev ratio: 1.2 PADMAJA indexed to BSA (cm^2/m^2): 1.9 MV E max abdoulaye: 52.1 cm/sec TR max abdoulaye: 242.7 cm/sec MV A max abdoulaye: 73.6 cm/sec TR max P.6 mmHg MV E/A: 0.71 PA V2 max: 95.1 cm/sec Med Peak E' Abdoulaye: 7.0 cm/sec PA V2 mean: 70.7 cm/sec E/E' med: 7.4 PA mean P.2 mmHg Lat Peak E' Abdoulaye: 12.9 cm/sec PA pr(Accel): 53.3 mmHg E/E' lat: 4.0 E/e' average: 5.7 MV dec time: 0.14 sec SV(LVOT): 43.8 ml Reading Physician:05:42 PM
[2024-11-30 17:15] LABS: TSH w/ Reflex to FT4 2.21 uIU/mL (0.47-4.68)
[2024-11-30 17:27] LABS: Troponin I < 0.012 ng/mL (0.01-0.034)
[2024-11-30] MEDS: IBUPROFEN 400 MG TABLET PO (20:29)
[2024-12-01] VITALS (11 sets, daily range): BP systolic 97–129; BP diastolic 66–86; PULSE 104–130; RESP 13–26; TEMP 36.2–37.4; O2SAT 95–100
[2024-12-01] MEDS: PIPERACILLIN/TAZO 3.375 GM in SODIUM CHLORIDE 0.9% 100 ML IV ×3 (03:30→19:46)
[2024-12-01] MEDS: METOCLOPRAMIDE 10 MG/2 ML INJ IV ×3 (03:30→19:25)
[2024-12-01] MEDS: SODIUM CHLORIDE 0.9% 1,000 ML 150 ML IV ×3 (03:31→17:02)
[2024-12-01 05:31] LABS: Hematocrit 34.0 % (41-53); Hemoglobin 11.6 g/dL (13.5-17.5); Mean Corpuscular HGB Conc 34.1 % (30-36); Mean Corpuscular Hemoglobin 33.4 PG (26-34); Mean Corpuscular Volume 97.9 fL (80-100); Platelet Count 136 X10^3/uL (150-400)
[2024-12-01 05:39] LABS: Add Manual Diff / Slide Review YES
[2024-12-01 05:40] LABS: Alanine Aminotransferase 71 IU/L (<50); Albumin 2.4 g/dL (3.5-5.0); Albumin Globulin Ratio 0.6 (1.0-2.8); Alkaline Phosphatase 290 U/L (38-126); Blood Urea Nitrogen 7 mg/dL (9-20); Calcium 7.3 mg/dL (8.4-10.2); Carbon Dioxide 21 mmol/L (22-32); Chloride 103 mmol/L (98-107); Estimated Glomerular Filt Rate > 60 mL/min (>60); Globulin 3.8 g/dL (1.7-4.1); Glucose 83 mg/dL (70-99); HEMOLYSIS < 15 (0-50); Potassium 3.2 mmol/L (3.4-5.1); Sodium 131 mmol/L (137-145); Total Protein 6.2 g/dL (6.3-8.2)
[2024-12-01 06:10] LABS: Anisocytosis 1+; Band Neutrophils Percent 9.0 % (3-7); Basophils Percent Manual 1.0 % (0-1); Eosinophils Percent Manual 1.0 % (2-4); Lymphocytes Percent Manual 12.0 % (25-45); Monocytes Percent Manual 8.0 % (2-11); Neutrophils Absolute Manual 12948 /uL (3000-5900); Segmented Neutrophils Percent 69.0 % (38-70); Total Cells Counted 100; Toxic Granulation Present
--- NOTE | 2024-12-01 06:44 | PC.NURSE ---
Bread Wrapper Summary-Patient has been oriented to person, place, situation, month, and year. Speech is mumbled and soft-spoken. CIWA 2-10, PO Ativan given per protocol along with scheduled Librium. IV Reglan for nausea without vomitting. 3mg IV morphine given x1 for abdominal pain. Febrile 100.9 at 2000, HR 120s-130s, RR 28-30s, ibuprofen given, temp down to 98.0, HR has decreased to 100-110, RR 20s. 1-person assist to BSC and chair, small to moderate BMs, urine is tea colored.
--- NOTE | 2024-12-01 08:07 | PM.PN.1 ---
Subjective Subjective Date Patient Seen: 12/01/24 Interval history: His sinus tachycardia has persisted today, consistently in the 130-140 range and as high as 150s when he is moving around. His TSH and troponin levels are normal. He is well hydrated. He is on Zosyn. The norovirus and Campylobacter are likely no longer a factor. He has vague indications of abdominal pain and his lipase is now 1767. There was no visible pancreatic inflammation on the CT scan today but the patient appears to have an acute pancreatitis related to his alcohol use, likely contributing to or entirely causing the sinus tachycardia. Alcohol withdrawal is also a factor in the tachycardia. He is receiving morphine whenever indications of pain are clear. Subjective Subjective Interval history: This is a 44 years old male with a history of longstanding heavy alcohol abuse who presented to the ED with generalized weakness, feeling sleepy and not eating much. His last alcoholic drink was this morning. He drinks every day. He has had diarrhea in the last week and was found to have Norovirus. He has had no fever, shortness of breath, chest pain, palpitations, nausea, vomiting, abdominal pain, diarrhea or dysuria. Denies any alcohol-related seizures in the past. His last hospitalization was 7 months ago for EtOH withdrawal. He had declined substance abuse treatment at that time but says that he is willing to go through a program now. The WBC is 20.4, H&H 12.7 and 37.3, platelets 140, sodium 116, potassium 4, bicarb 20, creatinine 0.48, INR 1.4, glucose 107, lactate 2.7, calcium 7.8, total bilirubin 11.9, AST 230, ALT 118, ammonia level 26, lipase 2928, UA negative, U tox negative, alcohol level 190. Abdominal CT scans shows marked hepatic steatosis hepatomegaly. There are also partially seen suspected enlarged lymph nodes in the lower mediastinum and gabrielle. There is mild wall thickening of the anterior urinary bladder. He was initially given IV Protonix, Zofran, ciprofloxacin, Flagyl, thiamine and fluid bolus. Overnight he required Precedex for a rising level of alcohol withdrawal agitation. His blood pressure has been in the 80-90 range systolic today so that will be stopped and we will use lorazepam instead. 11/29: He has continued to experience tremulous agitation requiring lorazepam dosing several times overnight so will be put on a routine dose of Librium to decrease that need. The sodium level has stabilized at 122 with a potassium of 3.5 and a creatinine of 0.57. The total bilirubin has risen to 12.2. The AST, ALT have dropped but the alk-phos has risen slightly to 336. The lipase has dropped to 1194. His heart rate continues in the 120-130 range. 11/30: He continues to be somewhat over-sedated with the 25 mg of Librium t.i.d.. That will be decreased to 10 mg. An ammonia level will be rechecked. It was normal originally. The total bilirubin moraima again to 13.1. The AST and ALT have decreased. Alkaline phosphatase went up as did the lipase. The white blood count is 20.8 with a hemoglobin of 12.1. The sodium level is 128. He continues to be significantly tachycardic in the 140s with sinus tachycardia on telemetry. When I meet him and asked about abdominal pain he says he has ?a little bit. ? The CT scan is read as showing the steatosis/cirrhosis with a normal pancreas and a small new pleural effusion. No other significant point of infection is seen. We will add Zosyn to the azithromycin which he is on already for the Campylobacter. 12/01: He is more alert today although is still mostly mumbling. The white count is 16.8 with a hemoglobin of 11.6. The sodium is 131 with a potassium of 3.2. He will receive 40 mEq of potassium chloride orally twice a day. The AST is 114 with an ALT of 71 and an alkaline phosphatase of 290. Lipase is pending. His heart rate is now down significantly in the 100-110 range. Meds Home Medications and Allergies Home Medications ?Medication ?Instructions ?Recorded ?Confirmed ?Type clonidine HCl 0.1 mg tablet 0.1 mg PO BID 11/27/24 11/27/24 History gabapentin 300 mg capsule 300 mg PO 3XD 11/27/24 11/27/24 History hydroxyzine HCl 50 mg tablet 50 mg PO 3XD PRN anxiety 11/27/24 11/27/24 History Allergies Allergy/AdvReac Type Severity Reaction Status Date / Time No Known Drug Allergies Allergy Verified 11/27/24 18:21 Alcohol withdrawal. Present on admission, active. -Continue thiamine and folate. -Ativan IV/p.o. per CIWA protocol, Librium 25 mg t.i.d., decreased to 10 mg due to over-sedation on 11/30. -persistent sinus tachycardia likely withdrawal related, continue to evaluate regularly for sepsis. -monitor electrolytes, magnesium and phosphate -social media content manager consult for alcohol abuse rehab program. -experienced significant hypotension on Precedex so we will try to avoid it. -Radio Communications Mechanician patient about the health risks of alcohol and encourage quitting when patient stable and alcohol withdrawal resolved. hall worker referral for alcohol abuse rehab programs. Hyponatremia of 116, up to 131 with supplementation. -gently hydrate patient and check patient's sodium daily. -check urine sodium and urine/serum osmolality -Limits patient's sodium rise to 8 mEq in 24 hours. - Hypertonic saline 3% 50 cc once, completed -Monitor neuro checks Acute norovirus gastroenteritis/Campylobacter colitis -supportive care and azithromycin due to presumed immunosuppression of chronic alcoholism. Questionable colitis. Patient meets the criteria for sepsis. -white blood count 20.4 -received initial doses of Cipro and metronidazole, which were then stopped secondary to Campylobacter treatment. -blood cultures no growth X 72 h. -resumed Zosyn IV on 11/[address] scan. Alcoholic hepatitis. Total bilirubin 13.1 lipase 1767. Modestly elevated ALT/AST/alkaline phosphatase. Checked for acute viral hepatitis. Avoid potentially hepatotoxic medications. Monitor closely. Elevated lipase with minimal clinical symptoms of pancreatitis. Cholesterol 257 and triglycerides 151. Symptomatic treatment with fluids, pain control and antiemetics as needed. Follow-up lipase 1767. Normal pancreas on follow-up CT scan 11/30. Lipase noted to rise on 11/30 up to 1767 likely confirming alcoholic pancreatitis as a major cause of the persistent sinus tachycardia. When questioned about abdominal pain he vaguely circles his hands over his central abdomen and mumbles. Sinus tachycardia -heart rate consistently above 100 for several days, reaching as high as the 140s on 11/30. TSH and troponin checked are normal. Started on Zosyn. Abdominal pelvic CT repeated. Rising lipase consistent with acute pancreatitis. Hydrating 150 mL NS per hour. Severe acute on chronic Protein Calorie Malnutrition r/t inadequate protein and nutrient intake in setting of excessive EtOH consumption as evidenced by consumption of 3, 24 oz cans of malt liquor daily, no intake besides beer for 2 weeks (severe) and only 1 meal per day meeting <75% of estimated energy needs for >6 months (severe). Disposition: [facility] facility or home once alcohol withdrawal and cirrhosis is stabilized. Exam Vital Signs (past 8 hours): - 12/01/24 00:15 12/01/24 00:22 12/01/24 01:25 Temperature 98.0 F 98.0 F Pulse Rate 118 H 104 H Respiratory Rate 24 24 Blood Pressure 97/66 108/66 Pulse Oximetry 95 Oxygen Flow Rate 0 12/01/24 04:00 12/01/24 04:30 Temperature Pulse Rate 108 H 108 H Respiratory Rate 21 26 H Blood Pressure 108/73 108/73 Pulse Oximetry 96 Oxygen Flow Rate 0 Oxygen Delivery Method Room Air Oxygen Flow Rate 0 Objective Labs 12/01/24 04:44 12/01/24 04:44 Labs: Laboratory Results - last 24 hr 11/30/24 11/30/24 11/30/24 08:37 11:38 16:55 WBC 20.8 H RBC 3.66 L Hgb 12.1 L Hct 35.6 L MCV 97.4 MCH 33.2 MCHC 34.1 RDW 15.7 H Plt Count 160 Neut % (Auto) Not Reportable Lymph % (Auto) Not Reportable [place] % (Auto) Not Reportable Eos % (Auto) Not Reportable Baso % (Auto) Not Reportable Lymph # (Auto) Not Reportable [place] # (Auto) Not Reportable Baso # (Auto) Not Reportable Total Counted 100 Seg Neutrophils % 82.0 H Band Neutrophils % 8.0 H Lymphocytes % (Manual) 4.0 L Monocytes % (Manual) 5.0 Eosinophils % (Manual) 1.0 L Basophils % (Manual) Neutrophils # (Manual) 67394 H Toxic Granulation RBC Morphology Not Reportable Anisocytosis Target Cells 1+ H Sodium 128 L Potassium 4.0 Chloride 99 Carbon Dioxide 22 BUN 6 L Creatinine 0.53 L Estimated GFR > 60 BUN/Creatinine Ratio 11.3 Glucose 101 H Calcium 7.8 L Magnesium 1.8 Total Bilirubin 13.1 H AST 128 H ALT 85 H Alkaline Phosphatase 345 H Ammonia 22 Troponin I < 0.012 Total Protein 7.0 Albumin 2.8 L Globulin 4.2 H Albumin/Globulin Ratio 0.7 L Lipase 1767 H TSH 2.21 12/01/24 04:44 WBC 16.6 H RBC 3.47 L Hgb 11.6 L Hct 34.0 L MCV 97.9 MCH 33.4 MCHC 34.1 RDW 16.2 H Plt Count 136 L Neut % (Auto) Not Reportable Lymph % (Auto) Not Reportable [place] % (Auto) Not Reportable Eos % (Auto) Not Reportable Baso % (Auto) Not Reportable Lymph # (Auto) Not Reportable [place] # (Auto) Not Reportable Baso # (Auto) Not Reportable Total Counted 100 Seg Neutrophils % 69.0 Band Neutrophils % 9.0 H Lymphocytes % (Manual) 12.0 L Monocytes % (Manual) 8.0 Eosinophils % (Manual) 1.0 L Basophils % (Manual) 1.0 Neutrophils # (Manual) 20765 H Toxic Granulation Present H RBC Morphology See below Anisocytosis 1+ H Target Cells Sodium 131 L Potassium 3.2 L Chloride 103 Carbon Dioxide 21 L BUN 7 L Creatinine 0.56 L Estimated GFR > 60 BUN/Creatinine Ratio 12.5 Glucose 83 Calcium 7.3 L Magnesium Total Bilirubin 13.1 H AST 114 H ALT 71 H Alkaline Phosphatase 290 H Ammonia Troponin I Total Protein 6.2 L Albumin 2.4 L Globulin 3.8 Albumin/Globulin Ratio 0.6 L Lipase TSH PFSH Medical History (Updated 11/28/24 @ 17:40 by Vimal Garcia MD) Alcoholic liver disease Hepatomegaly Alcoholic pancreatitis Alcohol intoxication No significant medical problems Social History household members: significant other and children Smoking Status: Former smoker alcohol intake: current Assessment & Plan Time-Based Coding :: [TOTAL MINUTES] spent with patient and on the chart (including review of chart, obtaining history, exam, reviewing outside data, placing orders, documenting exam and treatment plan, and counseling patient) on [DATE]. Quality VTE Deep Vein Thrombosis/Pulmonary Embolism Present on Admission: No
[2024-12-01] MEDS: MULTIVITAMIN 1 TABLET 1 TAB PO (08:27)
[2024-12-01] MEDS: AZITHROMYCIN 250 MG TABLET PO (08:28)
[2024-12-01] MEDS: FAMOTIDINE 20 MG/2 ML VIAL IV ×2 (08:28→20:38)
[2024-12-01] MEDS: SODIUM CHLORIDE 0.9% FLUSH 10 ML IV ×2 (08:28→20:38)
[2024-12-01] MEDS: FOLIC ACID 1 MG TABLET PO (08:28)
[2024-12-01] MEDS: MORPHINE 4 MG/ML INJ 3 MG IV ×3 (08:28→22:53)
[2024-12-01] MEDS: THIAMINE 100 MG TABLET PO (08:28)
[2024-12-01] MEDS: POTASSIUM CHLORIDE 20 MEQ TAB 40 MEQ PO ×2 (10:01→15:03)
--- NOTE | 2024-12-01 14:05 | CM.DPC ---
DCP Cont. Reviewed EMR and team rounds for pt's medical status and updates. Per Hospitalist, pt continues with tachycardia, ETOH withdrawal symptoms. Will plan to connect with pt on Sunday to discuss INPT ETOH rehab resources.
--- NOTE | 2024-12-01 15:23 | PC.NURSE ---
REPORT GIVEN TO STACI TURNER
[2024-12-01 18:36] LABS: Osmolality, Serum 279 mOsmol/kg (275-295)
--- NOTE | 2024-12-01 18:58 | PC.NURSE ---
Took over pt care around 16:00. Pt sleeping most of shift, still nauseous. Able to eat a little of his dinner. Echo completed.
[2024-12-01] MEDS: MELATONIN 3 MG TABLET 6 MG PO (20:39)
[2024-12-01] MEDS: IBUPROFEN 400 MG TABLET PO (20:39)
[2024-12-02 00:49] VITALS: BP 111/68; PULSE 108; RESP 14
[2024-12-02] MEDS: ONDANSETRON 4 MG/2 ML INJ IV (01:10)
[2024-12-02] MEDS: PIPERACILLIN/TAZO 3.375 GM in SODIUM CHLORIDE 0.9% 100 ML IV ×3 (03:32→19:23)
[2024-12-02 04:00] VITALS: BP 109/67; PULSE 108; RESP 21; TEMP 36.8; O2SAT 99
[2024-12-02 05:01] LABS: Hematocrit 34.2 % (41-53); Hemoglobin 11.7 g/dL (13.5-17.5); Mean Corpuscular HGB Conc 34.1 % (30-36); Mean Corpuscular Hemoglobin 33.5 PG (26-34); Mean Corpuscular Volume 98.3 fL (80-100); Platelet Count 122 X10^3/uL (150-400)
[2024-12-02 05:02] LABS: Add Manual Diff / Slide Review YES
[2024-12-02 05:09] LABS: Alanine Aminotransferase 66 IU/L (<50); Albumin 2.3 g/dL (3.5-5.0); Albumin Globulin Ratio 0.6 (1.0-2.8); Alkaline Phosphatase 316 U/L (38-126); Blood Urea Nitrogen 7 mg/dL (9-20); Calcium 7.2 mg/dL (8.4-10.2); Carbon Dioxide 19 mmol/L (22-32); Chloride 108 mmol/L (98-107); Estimated Glomerular Filt Rate > 60 mL/min (>60); Globulin 3.8 g/dL (1.7-4.1); Glucose 87 mg/dL (70-99); HEMOLYSIS < 15 (0-50); Lipase 787 U/L (23-300); Magnesium 1.7 mg/dL (1.6-2.3); Potassium 3.5 mmol/L (3.4-5.1); Sodium 134 mmol/L (137-145); Total Protein 6.1 g/dL (6.3-8.2)
[2024-12-02 05:30] LABS: Atypical Lymphocytes Percent 1.0 %; Band Neutrophils Percent 21.0 % (3-7); Lymphocytes Percent Manual 12.0 % (25-45); Metamyelocytes Percent 1.0 % (-0); Monocytes Percent Manual 7.0 % (2-11); Neutrophils Absolute Manual 12403 /uL (3000-5900); Segmented Neutrophils Percent 58.0 % (38-70); Total Cells Counted 100
[2024-12-02 05:31] LABS: Anisocytosis 1+; Target Cells 1+; Toxic Granulation Present
[2024-12-02] MEDS: METOCLOPRAMIDE 10 MG/2 ML INJ IV ×2 (05:38→23:14)
[2024-12-02] MEDS: IBUPROFEN 400 MG TABLET PO (05:38)
[2024-12-02] MEDS: SODIUM CHLORIDE 0.9% 1,000 ML 150 ML IV ×2 (06:52)
--- NOTE | 2024-12-02 07:44 | PM.PN.1 ---
Subjective Subjective Date Patient Seen: 12/02/24 Interval history: This is a 44 years old male with a history of longstanding heavy alcohol abuse who presented to the ED with generalized weakness, feeling sleepy and not eating much. His last alcoholic drink was this morning. He drinks every day. He has had diarrhea in the last week and was found to have Norovirus. He has had no fever, shortness of breath, chest pain, palpitations, nausea, vomiting, abdominal pain, diarrhea or dysuria. Denies any alcohol-related seizures in the past. His last hospitalization was 7 months ago for EtOH withdrawal. He had declined substance abuse treatment at that time but says that he is willing to go through a program now. The WBC is 20.4, H&H 12.7 and 37.3, platelets 140, sodium 116, potassium 4, bicarb 20, creatinine 0.48, INR 1.4, glucose 107, lactate 2.7, calcium 7.8, total bilirubin 11.9, AST 230, ALT 118, ammonia level 26, lipase 2928, UA negative, U tox negative, alcohol level 190. Abdominal CT scans shows marked hepatic steatosis hepatomegaly. There are also partially seen suspected enlarged lymph nodes in the lower mediastinum and gabrielle. There is mild wall thickening of the anterior urinary bladder. He was initially given IV Protonix, Zofran, ciprofloxacin, Flagyl, thiamine and fluid bolus. Overnight he required Precedex for a rising level of alcohol withdrawal agitation. His blood pressure has been in the 80-90 range systolic today so that will be stopped and we will use lorazepam instead. 11/29: He has continued to experience tremulous agitation requiring lorazepam dosing several times overnight so will be put on a routine dose of Librium to decrease that need. The sodium level has stabilized at 122 with a potassium of 3.5 and a creatinine of 0.57. The total bilirubin has risen to 12.2. The AST, ALT have dropped but the alk-phos has risen slightly to 336. The lipase has dropped to 1194. His heart rate continues in the 120-130 range. 11/30: He continues to be somewhat over-sedated with the 25 mg of Librium t.i.d.. That will be decreased to 10 mg. An ammonia level will be rechecked. It was normal originally. The total bilirubin moraima again to 13.1. The AST and ALT have decreased. Alkaline phosphatase went up as did the lipase. The white blood count is 20.8 with a hemoglobin of 12.1. The sodium level is 128. He continues to be significantly tachycardic in the 140s with sinus tachycardia on telemetry. When I meet him and asked about abdominal pain he says he has ?a little bit. ? The CT scan is read as showing the steatosis/cirrhosis with a normal pancreas and a small new pleural effusion. No other significant point of infection is seen. We will add Zosyn to the azithromycin which he is on already for the Campylobacter. 12/01: He is more alert today although is still mostly mumbling. The white count is 16.8 with a hemoglobin of 11.6. The sodium is 131 with a potassium of 3.2. He will receive 40 mEq of potassium chloride orally twice a day. The AST is 114 with an ALT of 71 and an alkaline phosphatase of 290. Lipase is pending. His heart rate is now down significantly in the 100-110 range. 12/02: He is awake, alert and conversant today. He appears to have turned the corner. His heart rate has come down to just above 100. His lipase is much better at 787. The AST is 96. The ALT is 66. The alkaline phosphatase is 316 and the total bilirubin is still quite high at 13.5. The basic metabolic panel is normal. The white count remains high at 15.7 with a hemoglobin of 11.7. He is beginning to be somewhat edematous so the fluid will be stopped and he will get a small dose of Lasix. Meds Home Medications and Allergies Home Medications ?Medication ?Instructions ?Recorded ?Confirmed ?Type clonidine HCl 0.1 mg tablet 0.1 mg PO BID 11/27/24 11/27/24 History gabapentin 300 mg capsule 300 mg PO 3XD 11/27/24 11/27/24 History hydroxyzine HCl 50 mg tablet 50 mg PO 3XD PRN anxiety 11/27/24 11/27/24 History Allergies Allergy/AdvReac Type Severity Reaction Status Date / Time No Known Drug Allergies Allergy Verified 11/27/24 18:21 Alcohol withdrawal. Present on admission, active. -Continue thiamine and folate. -Ativan IV/p.o. per CIWA protocol, Librium 25 mg prn t.i.d., decreased to 10 mg due to over-sedation on 11/30. -persistent sinus tachycardia likely withdrawal related, resolved -monitor electrolytes, magnesium and phosphate -social worker school consult for alcohol abuse rehab program. -experienced significant hypotension on Precedex so we will try to avoid it. -Highway Worker patient about the health risks of alcohol and encourage quitting when patient stable and alcohol withdrawal resolved. brush worker referral for alcohol abuse rehab programs. Hyponatremia of 116, up to 134 with supplementation. -gently hydrate patient and check patient's sodium daily. -check urine sodium and urine/serum osmolality -Limits patient's sodium rise to 8 mEq in 24 hours. - Hypertonic saline 3% 50 cc once, completed -Monitor neuro checks -stopped IVF on 12/02 Acute norovirus gastroenteritis/Campylobacter colitis -supportive care and azithromycin due to presumed immunosuppression of chronic alcoholism. Questionable colitis. Patient meets the criteria for sepsis. -white blood count 20.4 -received initial doses of Cipro and metronidazole, which were then stopped secondary to Campylobacter treatment. -blood cultures no growth X 72 h. -resumed Zosyn IV on 11/[address]. Alcoholic hepatitis. Total bilirubin 13.1 lipase 1767. Modestly elevated ALT/AST/alkaline phosphatase. Checked for acute viral hepatitis. Avoid potentially hepatotoxic medications. Monitor closely. Elevated lipase with minimal clinical symptoms of pancreatitis. Cholesterol 257 and triglycerides 151. Symptomatic treatment with fluids, pain control and antiemetics as needed. Follow-up lipase 1767. Normal pancreas on follow-up CT scan 11/30. Lipase noted to rise on 11/30 up to 1767 likely confirming alcoholic pancreatitis as a major cause of the persistent sinus tachycardia. When questioned about abdominal pain he vaguely circles his hands over his central abdomen and mumbles. Lipase down to 787 on 12/02. Sinus tachycardia -heart rate consistently above 100 for several days, reaching as high as the 140s on 11/30. TSH and troponin checked are normal. Started on Zosyn. Abdominal pelvic CT repeated. Rising lipase consistent with acute pancreatitis. Hydrating 150 mL NS per hour. -Resolved on 12/02, stopped IVF. Severe acute on chronic Protein Calorie Malnutrition r/t inadequate protein and nutrient intake in setting of excessive EtOH consumption as evidenced by consumption of 3, 24 oz cans of malt liquor daily, no intake besides beer for 2 weeks (severe) and only 1 meal per day meeting <75% of estimated energy needs for >6 months (severe). -Increasing oral intake as withdrawal delirium has slowly cleared. Disposition: intermediate facility or home in 1-2 days now that alcohol withdrawal and cirrhosis is improving. Exam Vital Signs (past 8 hours): - 12/01/24 23:55 12/02/24 00:49 12/02/24 04:00 Temperature 98.2 F Pulse Rate 108 H 108 H 108 H Respiratory Rate 13 14 21 Blood Pressure 111/68 111/68 109/67 Pulse Oximetry 98 99 Oxygen Flow Rate 1 1 Oxygen Delivery Method Nasal Cannula Oxygen Flow Rate 1 Narrative Exam Narrative: Alert and oriented x3. Answers are slow but are accurate. He is definitely more engaging. Heart is mildly tachycardic with a regular rhythm. There is no murmur. Lungs are clear to auscultation bilaterally. Abdomen remains somewhat bloated but nontender. Bowel sounds are active. Extremities have mild diffuse edema. Objective Labs 12/02/24 04:39 12/02/24 04:39 Labs: Laboratory Results - last 24 hr 11/27/24 11/27/24 12/02/24 20:27 22:45 04:39 WBC 15.7 H RBC 3.48 L Hgb 11.7 L Hct 34.2 L MCV 98.3 MCH 33.5 MCHC 34.1 RDW 16.7 H Plt Count 122 L Neut % (Auto) Not Reportable Lymph % (Auto) Not Reportable Borden % (Auto) Not Reportable Eos % (Auto) Not Reportable Baso % (Auto) Not Reportable Lymph # (Auto) Not Reportable Borden # (Auto) Not Reportable Baso # (Auto) Not Reportable Total Counted 100 Seg Neutrophils % 58.0 Band Neutrophils % 21.0 H Lymphocytes % (Manual) 12.0 L Atypical Lymphs % 1.0 H Monocytes % (Manual) 7.0 Metamyelocytes % 1.0 H Neutrophils # (Manual) 40734 H Toxic Granulation Present H RBC Morphology See below Anisocytosis 1+ H Target Cells 1+ H Sodium 134 L Potassium 3.5 Chloride 108 H Carbon Dioxide 19 L BUN 7 L Creatinine 0.53 L Estimated GFR > 60 BUN/Creatinine Ratio 13.2 Glucose 87 Serum Osmolality 279 Calcium 7.2 L Magnesium 1.7 Total Bilirubin 13.5 H AST 96 H ALT 66 H Alkaline Phosphatase 316 H Total Protein 6.1 L Albumin 2.3 L Globulin 3.8 Albumin/Globulin Ratio 0.6 L Lipase 787 H D Urine Osmolality 141 [facility] Medical History (Updated 11/28/24 @ 17:40 by Vimal Garcia MD) Alcoholic liver disease Hepatomegaly Alcoholic pancreatitis Alcohol intoxication No significant medical problems Social History household members: significant other and children Smoking Status: Former smoker alcohol intake: current Assessment & Plan Time-Based Coding :: [TOTAL MINUTES] spent with patient and on the chart (including review of chart, obtaining history, exam, reviewing outside data, placing orders, documenting exam and treatment plan, and counseling patient) on [DATE]. Quality VTE Deep Vein Thrombosis/Pulmonary Embolism Present on Admission: No
[2024-12-02 08:00] VITALS: BP 131/60; PULSE 107; RESP 12; TEMP 36.8; O2SAT 97
[2024-12-02] MEDS: AZITHROMYCIN 250 MG TABLET PO (08:49)
[2024-12-02] MEDS: SODIUM CHLORIDE 0.9% FLUSH 10 ML IV ×3 (08:57→21:20)
[2024-12-02] MEDS: FAMOTIDINE 20 MG/2 ML VIAL IV ×2 (08:57→21:19)
[2024-12-02] MEDS: FUROSEMIDE 20 MG/2 ML VIAL IV (09:08)
--- NOTE | 2024-12-02 09:33 | CM.DPNOTE ---
Addendum entered by VICKY Funes 12/02/24 13:57: per hospitalist, a little more alert at this time. CUSTOMER SUPPORT ANALYST met with pt in room. speech slurred/mumbled but able to communicate. CUSTOMER SUPPORT ANALYST explained to pt he may not be able to dc straight to INPT rehab due to norovirus, will need to be 10 days post pos test (12/07) prior to facilities being willing to accept him. expressed understanding. plans to recover further at home prior to going to [facility] for INPT rehab assessment in OP setting. gave us permission to call girlfriend Lucian Zarco, whom he lives with, as needed for DCP coordination P: anticipate eventual dc home with GF support when medical stable. JOSUE pending a few days. SL Original Note: DCP note CUSTOMER SUPPORT ANALYST reviewed EMR per chart review/RN report, CIWA 10 overnight. decreased librium but had to increase ativan overnight. extremities swollen, multisystem organ issues. not currently appropriate for DCP/CUSTOMER SUPPORT ANALYST intervention at this time Will continue to follow closely for ETOH resources/DCP coordination VICKY Funes
[2024-12-02] MEDS: POTASSIUM CHLORIDE 20 MEQ TAB 40 MEQ PO (10:33)
[2024-12-02] MEDS: MAGNESIUM CHLORIDE 64 MG TABLET 128 MG PO (10:33)
[2024-12-02 12:00] VITALS: BP 105/62; PULSE 110; RESP 24; TEMP 36.6; O2SAT 97
--- NOTE | 2024-12-02 15:38 | DIET.PN1 ---
Dietary Progress Note Assessment: f/u, spoke to RN and reviewed chart. Improving PO intakes. Will change Ensure to Ensure+ as pt is tolerating that. Ht: 162.56 cm Wt: 78 kg BMI: 29.5 UBW: Last BM: 12/02/24 (12/02/24 15:30) MNA: 9 Arvind Score: 17 Diet: 11/28/24 Breakfast Heart Healthy Diet Diet Modifications: Sodium Level: 2 gm Sodium Food Texture: Level 7 - Regular Liquid Consistency: Level 0 - Thin Nutrition Percent Meal Consumed patient refused lunch patient 12/02/24 14:00 just want ensure Percent Meal Consumed 75% 12/02/24 08:55 Percent Meal Consumed 15 12/01/24 18:00 Labs: RBC 3.48 X10^6/uL (4.5-5.9) L 12/02/24 04:39 Hgb 11.7 g/dL (13.5-17.5) L 12/02/24 04:39 Hct 34.2 % (41-53) L 12/02/24 04:39 Creatinine 0.53 mg/dL (0.66-1.25) L 12/02/24 04:39 Lactate 1.5 mmol/L (0.7-2.1) 11/28/24 06:07 Electronically Signed by: Christy Castro 12/02/24 15:38 Clinical Dietitian [address] [address]
[2024-12-02 16:00] VITALS: BP 93/62; PULSE 101; RESP 19; TEMP 36.6; O2SAT 100
[2024-12-02 20:00] VITALS: BP 102/67; PULSE 112; RESP 21; TEMP 36.6; O2SAT 97
[2024-12-02] MEDS: MORPHINE 4 MG/ML INJ 3 MG IV (21:13)
[2024-12-02] MEDS: MELATONIN 3 MG TABLET 6 MG PO (21:19)
[2024-12-03] VITALS: PULSE 114; RESP 22; O2SAT 98
[2024-12-03] MEDS: IBUPROFEN 400 MG TABLET PO (02:25)
[2024-12-03] MEDS: PIPERACILLIN/TAZO 3.375 GM in SODIUM CHLORIDE 0.9% 100 ML IV ×3 (02:30→19:54)
[2024-12-03] MEDS: MORPHINE 4 MG/ML INJ 3 MG IV ×2 (03:54→19:54)
[2024-12-03 04:00] VITALS: PULSE 102; RESP 13
[2024-12-03 04:43] LABS: Hematocrit 34.8 % (41-53); Hemoglobin 11.8 g/dL (13.5-17.5); Mean Corpuscular HGB Conc 33.9 % (30-36); Mean Corpuscular Hemoglobin 33.5 PG (26-34); Mean Corpuscular Volume 99.0 fL (80-100); Platelet Count 128 X10^3/uL (150-400)
[2024-12-03 04:51] LABS: Add Manual Diff / Slide Review YES
[2024-12-03 04:52] LABS: Alanine Aminotransferase 62 IU/L (<50); Albumin 2.4 g/dL (3.5-5.0); Albumin Globulin Ratio 0.7 (1.0-2.8); Alkaline Phosphatase 317 U/L (38-126); Blood Urea Nitrogen 7 mg/dL (9-20); Calcium 7.5 mg/dL (8.4-10.2); Carbon Dioxide 19 mmol/L (22-32); Chloride 108 mmol/L (98-107); Estimated Glomerular Filt Rate > 60 mL/min (>60); Globulin 3.6 g/dL (1.7-4.1); Glucose 109 mg/dL (70-99); HEMOLYSIS < 15 (0-50); Potassium 3.4 mmol/L (3.4-5.1); Sodium 135 mmol/L (137-145); Total Protein 6.0 g/dL (6.3-8.2)
[2024-12-03 05:11] LABS: Anisocytosis 1+; Band Neutrophils Percent 15.0 % (3-7); Basophils Percent Manual 1.0 % (0-1); Eosinophils Percent Manual 1.0 % (2-4); Lymphocytes Percent Manual 7.0 % (25-45); Metamyelocytes Percent 2.0 % (-0); Monocytes Percent Manual 2.0 % (2-11); Myelocytes Percent 1.0 % (-0); Neutrophils Absolute Manual 15910 /uL (3000-5900); Segmented Neutrophils Percent 71.0 % (38-70); Target Cells 1+; Total Cells Counted 100
[2024-12-03 05:12] LABS: Toxic Granulation Present
--- NOTE | 2024-12-03 07:45 | PM.PN.1 ---
Subjective Subjective Interval history: Interval history: This is a 44 years old male with a history of longstanding heavy alcohol abuse who presented to the ED with generalized weakness, feeling sleepy and not eating much. His last alcoholic drink was this morning. He drinks every day. He has had diarrhea in the last week and was found to have Norovirus. He has had no fever, shortness of breath, chest pain, palpitations, nausea, vomiting, abdominal pain, diarrhea or dysuria. Denies any alcohol-related seizures in the past. His last hospitalization was 7 months ago for EtOH withdrawal. He had declined substance abuse treatment at that time but says that he is willing to go through a program now. The WBC is 20.4, H&H 12.7 and 37.3, platelets 140, sodium 116, potassium 4, bicarb 20, creatinine 0.48, INR 1.4, glucose 107, lactate 2.7, calcium 7.8, total bilirubin 11.9, AST 230, ALT 118, ammonia level 26, lipase 2928, UA negative, U tox negative, alcohol level 190. Abdominal CT scans shows marked hepatic steatosis hepatomegaly. There are also partially seen suspected enlarged lymph nodes in the lower mediastinum and gabrielle. There is mild wall thickening of the anterior urinary bladder. He was initially given IV Protonix, Zofran, ciprofloxacin, Flagyl, thiamine and fluid bolus. Overnight he required Precedex for a rising level of alcohol withdrawal agitation. His blood pressure has been in the 80-90 range systolic today so that will be stopped and we will use lorazepam instead. 11/29: He has continued to experience tremulous agitation requiring lorazepam dosing several times overnight so will be put on a routine dose of Librium to decrease that need. The sodium level has stabilized at 122 with a potassium of 3.5 and a creatinine of 0.57. The total bilirubin has risen to 12.2. The AST, ALT have dropped but the alk-phos has risen slightly to 336. The lipase has dropped to 1194. His heart rate continues in the 120-130 range. 11/30: He continues to be somewhat over-sedated with the 25 mg of Librium t.i.d.. That will be decreased to 10 mg. An ammonia level will be rechecked. It was normal originally. The total bilirubin moraima again to 13.1. The AST and ALT have decreased. Alkaline phosphatase went up as did the lipase. The white blood count is 20.8 with a hemoglobin of 12.1. The sodium level is 128. He continues to be significantly tachycardic in the 140s with sinus tachycardia on telemetry. When I meet him and asked about abdominal pain he says he has ?a little bit. ? The CT scan is read as showing the steatosis/cirrhosis with a normal pancreas and a small new pleural effusion. No other significant point of infection is seen. We will add Zosyn to the azithromycin which he is on already for the Campylobacter. 12/01: He is more alert today although is still mostly mumbling. The white count is 16.8 with a hemoglobin of 11.6. The sodium is 131 with a potassium of 3.2. He will receive 40 mEq of potassium chloride orally twice a day. The AST is 114 with an ALT of 71 and an alkaline phosphatase of 290. Lipase is pending. His heart rate is now down significantly in the 100-110 range. 12/02: He is awake, alert and conversant today. He appears to have turned the corner. His heart rate has come down to just above 100. His lipase is much better at 787. The AST is 96. The ALT is 66. The alkaline phosphatase is 316 and the total bilirubin is still quite high at 13.5. The basic metabolic panel is normal. The white count remains high at 15.7 with a hemoglobin of 11.7. He is beginning to be somewhat edematous so the fluid will be stopped and he will get a small dose of Lasix. S: He was still feels weak. Less nausea. He was still feel shaky. No diarrhea. He denies hallucinations. O: VSS, flat affect. NAD, alert and oriented. Fluent speech. Lungs are clear, normal rate and effort. Heart is regular, no murmur gallop or rub. Abdomen is soft, non distended. Extremities are free of edema. A/P: 1. Alcohol withdrawal. Present on admission, active. -Continue thiamine and folate. 2. Hyponatremia of 116, up to 134 with supplementation. -gently hydrate patient and check patient's sodium daily. 3. Acute norovirus gastroenteritis/Campylobacter colitis -supportive care and azithromycin due to presumed immunosuppression of chronic alcoholism. 4. Questionable colitis. Patient meets the criteria for sepsis. -white blood count 20.4 -received initial doses of Cipro and metronidazole, which were then stopped secondary to Campylobacter treatment. -blood cultures no growth X 72 h. -resumed Zosyn IV on 11/[address]. 5. Alcoholic hepatitis. Total bilirubin 13.1 lipase 1767. Modestly elevated ALT/AST/alkaline phosphatase. Checked for acute viral hepatitis. Avoid potentially hepatotoxic medications. Monitor closely. 6. Elevated lipase with minimal clinical symptoms of pancreatitis. Cholesterol 257 and triglycerides 151. Symptomatic treatment with fluids, pain control and antiemetics as needed. Follow-up lipase 1767. Normal pancreas on follow-up CT scan 11/30. Lipase noted to rise on 11/30 up to 1767 likely confirming alcoholic pancreatitis as a major cause of the persistent sinus tachycardia. When questioned about abdominal pain he vaguely circles his hands over his central abdomen and mumbles. Lipase down to 787 on 12/02. 7. Sinus tachycardia, improved. -heart rate consistently above 100 for several days, reaching as high as the 140s on 11/30. TSH and troponin checked are normal. Started on Zosyn. Abdominal pelvic CT repeated. Rising lipase consistent with acute pancreatitis. Hydrating 150 mL NS per hour. -Resolved on 12/02, stopped IVF. 8. Severe acute on chronic Protein Calorie Malnutrition r/t inadequate protein and nutrient intake in setting of excessive EtOH consumption as evidenced by consumption of 3, 24 oz cans of malt liquor daily, no intake besides beer for 2 weeks (severe) and only 1 meal per day meeting <75% of estimated energy needs for >6 months (severe). -Increasing oral intake as withdrawal delirium has slowly cleared. PLAN: -increase Librium to q.i.d., out of bed. Advance diet as able. Disposition: long-term facility or home in 1-2 days now that alcohol withdrawal and cirrhosis is improving. Exam Vital Signs (past 8 hours): - 12/03/24 00:00 12/03/24 04:00 Pulse Rate 114 H 102 H Respiratory Rate 22 13 Pulse Oximetry 98 Oxygen Flow Rate 0 Oxygen Delivery Method Room Air Oxygen Flow Rate 0 Objective Labs 12/03/24 04:25 12/03/24 04:25 Labs: Laboratory Results - last 24 hr 12/03/24 04:25 WBC 18.5 H RBC 3.51 L Hgb 11.8 L Hct 34.8 L MCV 99.0 MCH 33.5 MCHC 33.9 RDW 17.0 H Plt Count 128 L Neut % (Auto) Not Reportable Lymph % (Auto) Not Reportable Parker % (Auto) Not Reportable Eos % (Auto) Not Reportable Baso % (Auto) Not Reportable Neut # (Auto) Not Reportable Lymph # (Auto) Not Reportable Parker # (Auto) Not Reportable Eos # (Auto) Not Reportable Baso # (Auto) Not Reportable Total Counted 100 Seg Neutrophils % 71.0 H Band Neutrophils % 15.0 H Lymphocytes % (Manual) 7.0 L Monocytes % (Manual) 2.0 Eosinophils % (Manual) 1.0 L Basophils % (Manual) 1.0 Metamyelocytes % 2.0 H Myelocytes % 1.0 H Neutrophils # (Manual) 97216 H Toxic Granulation Present H RBC Morphology See below Anisocytosis 1+ H Target Cells 1+ H Sodium 135 L Potassium 3.4 Chloride 108 H Carbon Dioxide 19 L BUN 7 L Creatinine 0.57 L Estimated GFR > 60 BUN/Creatinine Ratio 12.3 Glucose 109 H Calcium 7.5 L Total Bilirubin 13.5 H AST 87 H ALT 62 H Alkaline Phosphatase 317 H Total Protein 6.0 L Albumin 2.4 L Globulin 3.6 Albumin/Globulin Ratio 0.7 L PFSH Medical History (Updated 11/28/24 @ 17:40 by Vimal Garcia MD) Alcoholic liver disease Hepatomegaly Alcoholic pancreatitis Alcohol intoxication No significant medical problems Social History household members: significant other and children Smoking Status: Former smoker alcohol intake: current Assessment & Plan Time-Based Coding :: [TOTAL MINUTES] spent with patient and on the chart (including review of chart, obtaining history, exam, reviewing outside data, placing orders, documenting exam and treatment plan, and counseling patient) on [DATE]. Quality VTE Deep Vein Thrombosis/Pulmonary Embolism Present on Admission: No
[2024-12-03 08:00] VITALS: BP 99/68; PULSE 101; RESP 13; TEMP 36.8; O2SAT 97
[2024-12-03] MEDS: FOLIC ACID 1 MG TABLET PO (08:36)
[2024-12-03] MEDS: FAMOTIDINE 20 MG/2 ML VIAL IV ×2 (08:36→21:38)
[2024-12-03] MEDS: AZITHROMYCIN 250 MG TABLET PO (08:36)
[2024-12-03] MEDS: MULTIVITAMIN 1 TABLET 1 TAB PO (08:36)
[2024-12-03] MEDS: SODIUM CHLORIDE 0.9% FLUSH 10 ML IV ×3 (08:36→21:39)
--- NOTE | 2024-12-03 12:29 | CM.DPC ---
DCP Cont: Per MD, pt's white count increased again today but making some slow progress and not yet stable for discharge. Pt more alert today. Pt could benefit from PT eval as pt states he feels very weak and unsteady. SW met bedside with pt and explained role and discussed getting closer to discharge and pt states he is feeling somewhat better but states this is the worst withdrawal I have had, I was scared this time. Pt confirms that he has been admitted to the hospital for withdrawals a couple times before and has gone to a detox facility twice before but denies any hx of Inpt ETOH tx. Pt states he did utilize [facility] outpt services before and felt it was helpful for a while and used some medication for MAT tx but has not been established with any tx programs recently. Pt thinks he might be interested in a 30 day Inpt ETOH tx at d/c. SW explained it would require someone to transport him to and from the facility at discharge and would need to confirm that his straight classic Medicaid is not a barrier. Pt unsure if he has Medicaid Transport benefits or not and agreeable to SW checking on transport as well as calling facilities to see what options might be available at d/c. SW called medicaid transport and confirmed that pt does have transportation benefits if needed at d/c from the hospital or the inpt facility. Called [facility] and no answer from admissions phone or general number. Called [facility] in [place] [phone] and they confirmed they can accept Medicaid classic and currently full but anticipate some discharges and even though pt not yet stable for discharge today they encourage referral to be faxed to [phone] so they can check his insurance and confirm if he would meet their criteria. SW faxed referral to requested fax number for review. Plan: SW to follow closely for [facility] review to determine if they could accept at d/c vs home with outpt f/u. VICKY Quintero
--- NOTE | 2024-12-03 13:53 | OT.IPNOTE ---
Attempted OT eval and pt too sleepy and not able to stay awake. Pt was given chlordiazepoxide just an hour ago. To try again tomorrow.
--- NOTE | 2024-12-03 14:40 | PT.IIE ---
Current Diagnoses Alcohol dependence with withdrawal, unspecified (11/27/24) Medical History (Last Updated 11/28/24 @ 17:40 by Vimal Garcia MD) Alcohol intoxication Alcoholic liver disease Alcoholic pancreatitis Hepatomegaly No significant medical problems Physical Therapy Inpatient Evaluation/Re-Eval M1 PT/OT-IP Prior Functional Status Start: 12/03/24 15:34 Freq: NEEDED Status: Active Protocol: Document 12/03/24 14:40 AB (Rec: 12/03/24 15:49 AB [id number]) Medical Review Prior Functional Status Medical History Yes Reviewed Communication able to answer questions but needed repetitions of questions and instructions; very slow to respond with very soft speech Mobility and Gait pt stated that he was independent with all mobilities and ambulation without AD Social History Household Members significant other,children Living Arrangements House Number of Floors ( One Floor Floors) Number of Stairs To no steps to enter Enter/Railing? Home Environment Standard Height Toilet,Tub/Shower Home Equipment Shower Seat with Backrest Additional Social pt stated that he lives with his GF but GF works and History Comment will not be able to assist him; has her daughter at home but with a son and also will not be able to assist pt pt stated that he sleeps on a chair recliner M2 PT-IP Current Condition Start: 12/03/24 15:34 Freq: NEEDED Status: Active Protocol: Document 12/03/24 14:40 AB (Rec: 12/03/24 15:49 AB [id number]) Physical Therapy Current Condition Current Condition Evaluation Date 12/03/24 Treatment Diagnosis hyponatremia;alcoholic liver dse;alcoholic pancreatitis ; difficulty in walk Onset Date 11/27/24 M3 PT-IP Subjective Start: 12/03/24 15:34 Freq: NEEDED Status: Active Protocol: Document 12/03/24 14:40 AB (Rec: 12/03/24 15:49 AB [id number]) Subjective Physical Therapy Visit Type Type Initial Evaluation Visit Start Time 14:40 Visit Stop Time 15:10 Number of [employer] Visits 10 M4 PT-IP Mobility and Gait Start: 12/03/24 15:34 Freq: NEEDED Status: Active Protocol: Document 12/03/24 14:40 AB (Rec: 12/03/24 15:49 AB [id number]) PT-Bed Mobility Assessment Supine to Sit Supine to Sit Minimal Assistance,Head of Bed Elevated,Bedrails PT-Transfer Assessment Sit to and From Stand Sit to and from Minimal Assistance,1 Person Assistance,Use of Upper Stand Extremities Equipment Transfer Assistive Gait Belt,Front Wheeled Walker Device Orthotic/Prosthetic No Devices or Brace: Transfers Transfer Destination Toilet Transfer Technique ambulated Transfer Ability Level of Assist Minimal Assistance,1 Person Assistance,Use of Upper Extremities Comments Mobility Comments pt in bed and asleep. woke pt up and initially sleepy but agreed to get up. obtained PLOF and home set up. pt able to answer questions and follow directions but needs repetitions and increase time to respond. completed supine to sit with HOB elevated and use of bed rail min A and cues. able to sit on EOB SBA. sit to stand min A and cues and ambulated using FWW towards to the toilet min A and cues. pt requested to use the toilet midway during ambulation. presents with shuffling gait. pt required assist with maneuvering FWW during turning and cues for safety. pt required min A for controlled descent to the toilet. Left pt with NAC. Gait Assessment Gait Gait Assistance Minimum Assistance Required: Distance (Feet) 35 Able to Maintain Yes Weight Bearing Status During Gait Assistive Devices Assistive Device Gait Belt,Front Wheeled Walker Orthotic/Prosthetic No Devices or Brace: Gait Deviations General Gait Pattern Decreased Stride Length,Decreased Feet Clearance,Step- to Gait Factors Limiting Gait Function Factors Limiting Decreased Activity Tolerance,Decreased Strength, Gait Function Difficulty Following Directions,Limited Range of Motion ,Poor Balance,Poor Safety Awareness PT-Balance Assessment Sitting Balance and Reactions Static Sitting Good Balance Ability Dynamic Sitting Fair Balance Ability Standing Balance and Reactions Static Standing Fair Balance Ability Dynamic Standing Poor Balance Ability Device Used FWW M5 PT-IP Objective Assessments Start: 12/03/24 15:34 Freq: NEEDED Status: Active Protocol: Document 12/03/24 14:40 AB (Rec: 12/03/24 15:49 AB [id number]) Orientation Orientation/Cognition Level of Alertness Alert Orientation Name Safety Awareness Decreased Safety Awareness Memory Description Short Term Impaired,Sports Complex Attendant Impaired Comments pt alert but very slow to respond Gross Range of Motion Lower Extremity ROM Assessment Within Functional Limits Strength Lower Extremity Strength Assessment Bilaterally Impaired Hip 4-/5 Knee 4-/5 Muscle Tone Muscle Tone WNL Yes M6 PT-IP Treatment Start: 09/17/25 15:34 Freq: NEEDED Status: Active Protocol: Document 12/03/24 14:40 AB (Rec: 12/03/24 15:49 AB [id number]) Physical Therapy Treatment Education Education Provided Safety M7 PT-IP Assessment and Plan Start: 12/03/24 15:34 Freq: NEEDED Status: Active Protocol: Document 12/03/24 14:40 AB (Rec: 12/03/24 15:49 AB [id number]) PT Summary Assessment and Plan Potential Rehabilitation Fair Potential Status of Condition Evolving at Evaluation Summary Impairments Pain,ROM,Strength,Balance,Coordination,Sensation,Tone, Cognition,Bed Mobility,Transfers,Gait,Activity Tolerance Assessment Summary pt is a 44 y/o M who is admitted for alcoholic liver disease, alcoholic pancreatitis. pt requiring min A with mobilities using FWW and needed cues with all tasks. pt with decrease safety awareness and needing cues with all tasks for safety. pt will require 24/7 assist and at this time and may require SNF rehab to improve overall strength and mobility independence. will continue to assess progress. Goals Bed Mobility Goal Standby Assistance Transfer Goal Standby Assistance,Front Wheeled Walker Gait Goal Standby Assistance,Front Wheel Walker Gait Distance 150 Other Goals improve transfers, ambulation using LRAD/without AD 200 ft mod I Days to Meet Goals 10 Frequency of Treatment Frequency Of Once a Day Treatment Treatment Plan Physical Therapy Bed Mobility Training,Transfer Training,Gait Training, Treatment Plan Therapeutic Exercise,Balance Retraining,Discharge Planning,Hot or Cold Pack,Neuromuscular Re-ed, Coordination Retraining Precautions Other Precautions falls; contact precautions (enteric) due to norovirus Recommendations To Nursing Amount of Assist 1 Person Assist Needed Discharge Recommendations PT Discharge Home with 24/7 Assist Available,Home Health,SNF Rehab, Recommendations Home vs SNF Equipment Needed for FWW Home Before Discharge Transportation Needs Private Vehicle,Wheelchair/Cabulance at Discharge - PT assist 1
[2024-12-03 15:46] VITALS: BP 101/62; PULSE 101; RESP 18; TEMP 36.6; O2SAT 98
[2024-12-03 18:36] LABS: Hepatitis A Antibody IgM Negative (Negative); Hepatitis B Core Antibody IgM Negative (Negative); Hepatitis C Antibody Reactive (Non Reactive)
[2024-12-03] MEDS: SODIUM CHLORIDE 0.9% 250 ML 21 ML IV (19:54)
[2024-12-03 20:00] VITALS: BP 91/53; PULSE 105; RESP 18; O2SAT 97
[2024-12-04] VITALS: BP 101/62; PULSE 109; RESP 18; O2SAT 98
--- NOTE | 2024-12-04 01:31 | PC.NURSE ---
Patient is oriented except to day of week but speech is poorly articulated/mumbled so can be difficult to understand. Breath sounds diminished at bases but RA sat is 97%. HRR but tachy in low 100's and BP has been trending low and was 91/53. Denied nausea. BT hypoactive and has been continuing to have loose/soft stools several times daily. Remains on enteric precautions due to being positive for norovirus. Is voiding either on toilet or BSC and urine is very dark brown color. Skin tone is jaundiced. Has 2+ edema in bilateral LE and up into abdomen. Did complain of 8/10 pain in left abdomen so was medicated at start of shift with Morphine and has been mostly sleeping since that time. Is able to turn himself in bed. Is up to bathroom with walker and 1 assist. Seems very weak in all extremities. Bilateral calf SCD's were applied at shift change. Fall risk score is high and bed alarm is activated.
[2024-12-04] MEDS: PIPERACILLIN/TAZO 3.375 GM in SODIUM CHLORIDE 0.9% 100 ML IV ×3 (03:50→20:02)
[2024-12-04] MEDS: SODIUM CHLORIDE 0.9% FLUSH 10 ML IV ×3 (03:51→20:02)
[2024-12-04 05:57] VITALS: BP 101/58; PULSE 111; RESP 20; O2SAT 98
[2024-12-04] MEDS: MORPHINE 4 MG/ML INJ 3 MG IV (06:22)
--- NOTE | 2024-12-04 07:58 | P.PN_ITS ---
Subjective Subjective Interval history: S: He did okay with physical therapy, but was unstable and required a walker and he was not confused today. He was having some abdominal tenderness and distention with frequent soft stools. No nausea or vomiting. No hallucinations and no tremor. O: NAD, alert and oriented. Fluent speech. Jaundiced. Lungs are clear, normal rate and effort. Heart is regular, no murmur gallop or rub. Abdomen is soft, and distended. Non-tender. Extremities are free of edema. A/P: 1. Alcohol withdrawal. Present on admission, active. -Continue thiamine and folate. 2. Hyponatremia of 116, improved to 134. 3. Acute norovirus gastroenteritis/Campylobacter colitis, improving. -supportive care and azithromycin due to presumed immunosuppression of chronic alcoholism. 4. Alcoholic hepatitis. Total bilirubin 13.1 lipase 1767. Modestly elevated ALT/AST/alkaline phosphatase. Checked for acute viral hepatitis. Avoid potentially hepatotoxic medications. Monitor closely. 5. Elevated lipase with minimal clinical symptoms of pancreatitis. Cholesterol 257 and triglycerides 151. Symptomatic treatment with fluids, pain control and antiemetics as needed. Follow-up lipase 1767. Normal pancreas on follow-up CT scan 11/30. Lipase noted to rise on 11/30 up to 1767 likely confirming alcoholic pancreatitis as a major cause of the persistent sinus tachycardia. When questioned about abdominal pain he vaguely circles his hands over his central abdomen and mumbles. Lipase down to 787 on 12/02. 6. Sinus tachycardia, improved. -heart rate consistently above 100 for several days, reaching as high as the 140s on 11/30. TSH and troponin checked are normal. Started on Zosyn. Abdominal pelvic CT repeated. Rising lipase consistent with acute pancreatitis. Hydrating 150 mL NS per hour. -Resolved on 12/02, stopped IVF. 7. Severe acute on chronic Protein Calorie Malnutrition r/t inadequate protein and nutrient intake in setting of excessive EtOH consumption as evidenced by consumption of 3, 24 oz cans of malt liquor daily, no intake besides beer for 2 weeks (severe) and only 1 meal per day meeting <75% of estimated energy needs for >6 months (severe). -Increasing oral intake as withdrawal delirium has slowly cleared. PLAN: -increased Librium to q.i.d., out of bed. -Advance diet as able. -PT -Discharge planning. Exam Vital Signs (past 8 hours): - 12/04/24 00:00 12/04/24 05:57 Pulse Rate 109 H 111 H Respiratory Rate 18 20 Blood Pressure 101/62 101/58 L Pulse Oximetry 98 98 Oxygen Delivery Method Room Air Oxygen Flow Rate 0 Objective Labs 12/03/24 04:25 12/03/24 04:25 Labs: Laboratory Results - last 24 hr 11/27/24 22:45 Hepatitis Panel Comment Hepatitis A IgM Ab Negative Hep Bs Antigen Negative Hep B Core IgM Ab Negative Hepatitis C Antibody Reactive A Hepatitis C RNA Quant Hcv not detected HCV RNA (PCR) log10 TNP Ref Lab Notation Comment [facility] Medical History (Updated 11/28/24 @ 17:40 by Vimal Garcia MD) Alcoholic liver disease Hepatomegaly Alcoholic pancreatitis Alcohol intoxication No significant medical problems Social History household members: significant other and children Smoking Status: Former smoker alcohol intake: current Assessment & Plan Time-Based Coding :: [TOTAL MINUTES] spent with patient and on the chart (including review of chart, obtaining history, exam, reviewing outside data, placing orders, documenting exam and treatment plan, and counseling patient) on [DATE]. Quality VTE Deep Vein Thrombosis/Pulmonary Embolism Present on Admission: No
--- NOTE | 2024-12-04 09:15 | OT.IP.EVAL ---
Current Diagnoses Alcohol dependence with withdrawal, unspecified (11/27/24) Past Medical History (Last Updated 11/28/24 @ 17:40 by Vimal Garcia MD) Alcohol intoxication Alcoholic liver disease Alcoholic pancreatitis Hepatomegaly No significant medical problems Occupational Therapy Inpatient Evaluation/Re-Eval M1 PT/OT-IP Prior Functional Status Start: 12/03/24 15:34 Freq: NEEDED Status: Active Protocol: Document 12/04/24 09:15 [facility] (Rec: 12/04/24 09:32 [facility] Desktop) Medical Review Prior Functional Status Medical History Yes Reviewed Communication able to answer questions but needed repetitions of questions and instructions; very slow to respond with very soft speech Mobility and Gait pt stated that he was independent with all mobilities and ambulation without AD Activities of Daily Pt was independent with all needs. Living and IADL's Social History Household Members significant other,children Living Arrangements House Number of Floors ( One Floor Floors) Number of Stairs To no steps to enter Enter/Railing? Home Environment Standard Height Toilet,Tub/Shower Home Equipment Shower Seat with Backrest Additional Social pt stated that he lives with his GF but GF works and History Comment will not be able to assist him; has her daughter at home but with a son and also will not be able to assist pt pt stated that he sleeps on a chair recliner M2 OT-IP Current Condition Start: 12/04/24 09:14 Freq: Status: Active Protocol: Document 12/04/24 09:15 [facility] (Rec: 12/04/24 09:32 [facility] Desktop) Occupational Therapy Current Condition Current Condition Evaluation Date 12/04/24 Treatment Diagnosis ETOH withdrawal, Norovirus, generalized weakness Diagnosis Onset Date 11/27/24 M3 OT- IP Subjective and Pain Start: 12/04/24 09:14 Freq: Status: Active Protocol: Document 12/04/24 09:15 [facility] (Rec: 12/04/24 09:32 [facility] Desktop) OT- Subjective Occupational Therapy Visit Type Type Initial Evaluation Visit Start Time 08:50 Visit Stop Time 09:15 Occupational Therapy Visit Comments Patient Comments Pt needing lots of encouragement and then agreed to get up to brush his teeth. Patient/Caregiver To get better and considering inpt ETOH rehab. Goals OT Pain Assessment Pain When Pain Assessed At Rest Pain Present Pain Present Pain Reported Location Abdomen Intensity 8 Scale Used Numeric (0 - 10) M4 OT- IP ADL's Start: 12/04/24 09:14 Freq: Status: Active Protocol: Document 12/04/24 09:15 [facility] (Rec: 12/04/24 09:32 [facility] Desktop) OT [id number] Comments OT Self-Feeding Not at meal time. Comments OT ADL-Grooming General Evaluation Grooming Ability Standby Assistance Areas Needing Retrieving/Set-up of Grooming Items Assistance Comments OT Grooming Comments Able to do while standing with FWW after set-up. OT ADL-Oral Care General Eval Oral Care Ability Independent OT ADL-Dressing Comments OT Dressing Comments not performed OT ADL-Toileting Comments OT Toileting Pt not having to go at this time. Comments OT ADL-Bathing Comments OT Bathing Comments Best for pt to use a shower chair at home. M5 OT- IP IADL's Start: 12/04/24 09:14 Freq: Status: Active Protocol: Document 12/04/24 09:15 [facility] (Rec: 12/04/24 09:32 [facility] Desktop) OT-Instrumental Activities of Daily Living Home Safety Awareness Home Safety Comments Pt a bit groggy and tired. Medication Management Medication Pt would benefit from at least supervision. Management Comments Money Management Money Management Pt would benefit from at least supervision. Comments Meal Preparation Meal Preparation Pt will need assist due to decreased dynamic balance Comments and relying on FWW to walk with this time. Clinical Case Manager Clinical Case Manager Pt will need assist due to decreased dynamic balance Comments and relying on FWW to walk with this time. M6 OT- IP Functional Cognition Start: 12/04/24 09:14 Freq: Status: Active Protocol: Document 12/04/24 09:15 [facility] (Rec: 12/04/24 09:32 [facility] Desktop) Cognitive Factors Limiting Selfcare Function Cognitive Ability Level of Alertness Alert,Drowsy Patient Orientation Name,Age,Birthday,Month,Year,Place,Situation Attention Span Capable of Focused Attention,Capable of Sustained Ability Attention Ability to Follow Able to Follow One Step Commands Commands Cognitive Comments Cognitive Assessment Pt a bit drowsy but able to follow commands for ADL and Comments mobility needs. Pt will benefit from SLUMS. OT- Vision and Hearing OT- Hearing Assessment OT- Hearing WFL Assessment OT- Vision Assessment Visual Acuity WFL Visual Attentiveness WFL Occular Pursuits WFL Vision Assessment Pt able to read the clock appropriately. Comments M7 OT- IP Mobility and Balance Start: 12/04/24 09:14 Freq: Status: Active Protocol: Document 12/04/24 09:15 [facility] (Rec: 12/04/24 09:32 [facility] Desktop) OT- Bed Mobility Assessment Supine to Sit Supine to Sit Assist Standby Assistance,Head of Bed Elevated OT-Transfer Assessment Sit to and From Stand Sit to and from Standby Assistance,Contact Guard Assistance Stand Transfers Transfer Ability Standby Assistance Technique Transfer Destination Bed,Chair Transfer Technique Stand Step Pivot Devices Transfer Assistive Gait Belt,Front Wheeled Walker Devices Comments Mobility Comments BP supine 105/68, sitting 124/68, and after up to the sink and in the recliner seated 113/56, O2 on RA 92%. Pt CGA to stand and after up on his feet to the sink with CGA able to be SBA with FWW to the recliner. Pt at this time heavily relies on the FWW for his balance. OT- Balance Assessment Sitting Balance and Reactions Static Sitting Good Balance Ability Dynamic Sitting Good Balance Ability Standing Balance and Reactions Static Standing Fair Balance Ability Dynamic Standing Fair Balance Ability Comments Other Balance Tests/ Balance based on no device used. Deviations/Treatment : M8 OT- IP Objective Assessments Start: 12/04/24 09:14 Freq: Status: Active Protocol: Document 12/04/24 09:15 [facility] (Rec: 12/04/24 09:32 [facility] Desktop) OT Gross Range of Motion Upper Extremity Range of Motion ROM Impairments Decreased at end ROM. OT Strength Upper Extremity Strength Assessment Bilaterally Impaired Hand [employer] Strength Hand Dominance Right Comments Strength Comments BUE 4-/5 to 4/5 to 4-/5 from proximal to distal. OT- Coordination Assessment Upper Extremity Finger to Nose Test Left UE Impaired Comments Coordination Pt needing assist for FMS to open items for grooming Comments and oral care needs. OT-Muscle Tone Assessment Comments Muscle Tone Comments Not tremoring in his BUE when trying to stand up. M9 OT- IP Assessment and Plan Start: 12/04/24 09:14 Freq: Status: Active Protocol: Document 12/04/24 09:15 [facility] (Rec: 12/04/24 09:32 [facility] Desktop) OT Summary Assessment and Plan Potential Rehabilitation Good Potential Analytic Complexity Moderate at Evaluation Summary OT Impairments Pain,Range of Motion,Strength,Balance,Functional Mobility,Self-Feeding,Grooming,Dressing,Toileting, Bathing,Toilet Transfers,Shower Transfers,Activity Tolerance Progress Towards Slow Progress due to Pain,Slow Progress due to Medical Goals Issues,Slow Progress due to Activity Tolerance Assessment Summary Pt MOD complexity and main barriers are pain, decreased balance and having to rely on the FWW for balance at this time, and decreased activity tolerance. Pt considering inpt ETOH rehab, however may benefit from short skilled rehab stay versus home with 24/7 assist and home health to get stronger first pending how pt's progresses medically. Goals Self-Feeding Goal Independent Grooming Goal Independent Dressing Goal Independent Toileting Goal Independent Bathing Goal Independent Toilet Transfer Goal Independent Shower Transfer Goal Independent Days to Meet Goals 10 Frequency of Treatment Other frequency 5x/week Treatment Plan OT Treatment Plan ADL Training,Functional Mobility,Patient/Family Education,Discharge Planning Other Treatment SLUMS Recommendations and shower Next Treatment Focus Discharge Recommendations OT Discharge Home vs SNF vs inpt ETOH rehab Recommendations Other Discharge inpt ETOH rehab if qualifies and able to get a little Recommendations stronger initially prior to discharge Home Equipment Needs FWW, shower chair Transportation Needs Private Vehicle at Discharge
[2024-12-04] MEDS: MULTIVITAMIN 1 TABLET 1 TAB PO (09:42)
[2024-12-04] MEDS: FOLIC ACID 1 MG TABLET PO (09:42)
[2024-12-04] MEDS: AZITHROMYCIN 250 MG TABLET PO (09:42)
[2024-12-04] MEDS: FAMOTIDINE 20 MG/2 ML VIAL IV ×2 (09:43→20:02)
[2024-12-04] MEDS: ENOXAPARIN 40 MG/0.4 ML SYRINGE SUBCUT (11:28)
--- NOTE | 2024-12-04 14:19 | PT.IPTN ---
Current Diagnoses Alcohol dependence with withdrawal, unspecified (11/27/24) Physical Therapy Treatment Note M2 PT-IP Current Condition Start: 12/03/24 15:34 Freq: NEEDED Status: Active Protocol: Document 12/03/24 14:40 AB (Rec: 12/03/24 15:49 AB [id number]) Physical Therapy Current Condition Current Condition Evaluation Date 12/03/24 Treatment Diagnosis hyponatremia;alcoholic liver dse;alcoholic pancreatitis ; difficulty in walk Onset Date 11/27/24 M3 PT-IP Subjective Start: 12/03/24 15:34 Freq: NEEDED Status: Active Protocol: Document 12/04/24 14:14 KJ (Rec: 12/04/24 14:18 KJ [id number]) Subjective Physical Therapy Visit Type Type Treatment Note Visit Start Time 13:46 Visit Stop Time 14:13 Physical Therapy Visit Comments Patient Comments abd pain, tired Patient Goals ETOH rehab Therapy Pain Assessment Pain When Pain Assessed At Rest Pain Present Pain Present Pain Reported Location Abdomen Pain Behaviors Holding Area Pain Management Re-positioning Techniques M4 PT-IP Mobility and Gait Start: 12/03/24 15:34 Freq: NEEDED Status: Active Protocol: Document 12/04/24 14:14 KJ (Rec: 12/04/24 14:18 KJ [id number]) PT-Bed Mobility Assessment Rolling Type of Rolling Roll to Left Level of Assist Contact Guard Assistance Supine to Sit Supine to Sit Contact Guard Assistance Sit to Supine Sit to Supine Contact Guard Assistance PT-Transfer Assessment Sit to and From Stand Sit to and from Contact Guard Assistance Stand Equipment Transfer Assistive Gait Belt,Front Wheeled Walker Device Transfers Transfer Destination Chair Transfer Technique Stand Step Pivot Transfer Ability Level of Assist Contact Guard Assistance Comments Mobility Comments slow, min tremors Gait Assessment Gait Gait Assistance Contact Guard Assist Required: Distance (Feet) 10 Assistive Devices Assistive Device Gait Belt,4 Wheeled Walker Gait Deviations General Gait Pattern Decreased Stride Length Factors Limiting Gait Function Factors Limiting Decreased Strength Gait Function Comments Gait Comments gait slow and steady PT-Balance Assessment Sitting Balance and Reactions Static Sitting Good Balance Ability Dynamic Sitting Good Balance Ability Standing Balance and Reactions Static Standing Good Balance Ability Dynamic Standing Good Balance Ability M5 PT-IP Objective Assessments Start: 12/03/24 15:34 Freq: NEEDED Status: Active Protocol: Document 12/04/24 14:14 KJ (Rec: 12/04/24 14:18 KJ [id number]) Orientation Orientation/Cognition Level of Alertness Alert Orientation Name,Age,Birthday,Month,Date,Year,Day of Week,Place, Situation M6 PT-IP Treatment Start: 12/03/24 15:34 Freq: NEEDED Status: Active Protocol: Document 12/04/24 14:14 KJ (Rec: 12/04/24 14:18 KJ [id number]) Physical Therapy Treatment Exercises Exercises Ankle Pumps,Heel Slides Education Education Provided Safety Other Treatments Other Treatment Instructed pt on safety during mobility and ambulation. Performed Discussed progression of activity. M7 PT-IP Assessment and Plan Start: 12/03/24 15:34 Freq: NEEDED Status: Active Protocol: Document 12/04/24 14:14 KJ (Rec: 12/04/24 14:18 KJ [id number]) PT Summary Assessment and Plan Potential Rehabilitation Good Potential Status of Condition Evolving at Evaluation Summary Impairments Gait,Activity Tolerance Progress Towards Progressing Toward Goals,Slow Progress due to Pain Goals Assessment Summary Pt shows reluctance to move but participates when encouraged. Recommendations To Nursing Amount of Assist 1 Person Assist Needed
--- NOTE | 2024-12-04 14:21 | CM.DPNOTE ---
DCP Continued: Reviewed EMR and team rounds for pt?s medical status. Per hospitalist, pt not medically cleared for discharge to another facility yet but would benefit from SIDNEY residential rehab after hospital admission. Per PT/OT, recommending home with home health vs. SNF Rehab before SIDNEY rehab. Per Barron Sharpe, [facility], ph# [phone], they have received the referral and can accept pt insurance but they will need an SUDP assessment. AUTISM TEACHER called [facility], confirmed that they do not have any available beds in their SIDNEY residential program. They also do not accept pt Medicaid insurance. AUTISM TEACHER called [facility] Quiroz ph#[phone], [facility] Clinician, and confirmed that there are no SUDPs available to complete a SUDP assessment in hospital. Recommended [facility] referral for SUDP/[facility] follow up and they can assist with referring pt to SIDNEY treatment program. AUTISM TEACHER discussed above with hospitalist, recommended discussing SNF Rehab with pt vs. [facility] follow up when pt medically cleared. AUTISM TEACHER entered room, discussed above with pt. Pt declines SNF Rehab referral at this time, Pt agreeable to [facility] referral to assist with getting him to SIDNEY rehab post-discharge. [facility] referral to be placed with [facility] when discharge becomes more imminent to schedule follow up call/visit. Provider Line: ph# [phone]. Plan: Anticipating dc home with [facility] referral when medically cleared, possibly 1-2 days. CM Team will continue to follow for coordination of discharge plans. Yeimy Villafuerte EMBEDDED DEVELOPER
[2024-12-04 14:37] VITALS: BP 94/50; PULSE 118; RESP 16; TEMP 36.6; O2SAT 95
[2024-12-04 18:00] VITALS: BP 92/64; PULSE 124; RESP 24; O2SAT 98
--- NOTE | 2024-12-04 18:34 | PC.NURSE ---
PO OOB in chair using FWW. Multiple runny BM's throughout shift. CIWA score 0. Plan for possible DC tomorrow.
[2024-12-04 19:38] VITALS: BP 117/65; PULSE 113; RESP 22; TEMP 36.1; O2SAT 98
[2024-12-05] MEDS: ONDANSETRON 4 MG/2 ML INJ IV ×2 (00:57→10:11)
[2024-12-05] MEDS: PIPERACILLIN/TAZO 3.375 GM in SODIUM CHLORIDE 0.9% 100 ML IV ×3 (02:50→19:54)
[2024-12-05 04:51] VITALS: BP 116/66; PULSE 113; RESP 18; O2SAT 98
[2024-12-05] MEDS: MORPHINE 4 MG/ML INJ 3 MG IV (07:03)
--- NOTE | 2024-12-05 07:58 | PM.PN.1 ---
Subjective Subjective Interval history: Summary: He was admitted with alcohol withdrawal and diarrheal illness. He has had a mild to moderate withdrawal episode. He is now weak, having some nausea, and having some abdomen pain. S: Weak, nauseated, eating very little. No diarrhea. Declines SNF. Would have an outpatient SUDS assessment after discharge to evaluate for residential alcohol treatment (residential). Exam Vital Signs (past 8 hours): - 12/05/24 04:51 Pulse Rate 113 H Respiratory Rate 18 Blood Pressure 116/66 Pulse Oximetry 98 Oxygen Flow Rate 0 Oxygen Delivery Method Room Air Oxygen Flow Rate 0 Narrative Exam Narrative: NAD, alert and oriented. Fluent speech. Somewhat withdrawn. Lungs are clear, normal rate and effort. Heart is regular, no murmur gallop or rub. Abdomen is soft, non distended. Extremities are free of edema. Objective ECG Impression: Intervals [place] Rate: 121 P: 34 OK: 136 QRS: 0 QRSD: 84 T: 40 QT: 318 QTc: 451 Interpretive Statements Sinus tachycardia Imaging Multiple studies: : Radiologist's impression: APCT: Mediastinal lymphadenopathy and interval development of a small right pleural effusion without jerzy pneumonia. Unchanged hepatic hypoattenuation suggestive of hepatitis versus severe hepatic steatosis. Borderline upper abdominal lymphadenopathy and worsening free abdominal fluid without focal abscess or definite enterocolitis. APCT: Marked hepatic steatosis and hepatomegaly. Mild wall thickening, possibly colitis, in the ascending colon. Colonic diverticula are seen. Nondilated appendix. Trace pelvic free fluid without drainable fluid collection. No bowel obstruction. Mild wall thickening of the anterior bladder, correlate urinalysis. Partially seen suspected enlarged lymph nodes in the lower mediastinum and gabrielle. Consider CT chest with contrast to further evaluate. CXR: Low lung volumes. No airspace consolidation or pleural effusions. Normal heart size. Degenerative osseous changes. Labs 12/03/24 04:25 12/03/24 04:25 [facility] Medical History Alcoholic liver disease Hepatomegaly Alcoholic pancreatitis Alcohol intoxication No significant medical problems Social History household members: significant other and children Smoking Status: Former smoker alcohol intake: current Assessment & Plan Assessment & Plan narrative: 1. Alcohol withdrawal. Present on admission, improved. 2. Hyponatremia of 116, improved to 134. 3. Acute norovirus gastroenteritis/Campylobacter colitis, improving. -supportive care and azithromycin due to presumed immunosuppression of chronic alcoholism. 4. Alcoholic hepatitis. Total bilirubin 13.1 lipase 1767. Improved. 5. Elevated lipase with minimal clinical symptoms of pancreatitis. Cholesterol 257 and triglycerides 151. Symptomatic treatment with fluids, pain control and antiemetics as needed. Follow-up lipase 1767. Normal pancreas on follow-up CT scan 11/30. Lipase noted to rise on 11/30 up to 1767 likely confirming alcoholic pancreatitis as a major cause of the persistent sinus tachycardia. When questioned about abdominal pain he vaguely circles his hands over his central abdomen and mumbles. Lipase down to 787 on 12/02. 6. Sinus tachycardia, resolved. 7. Severe acute on chronic Protein Calorie Malnutrition r/t inadequate protein and nutrient intake in setting of excessive EtOH consumption as evidenced by consumption of 3, 24 oz cans of malt liquor daily, no intake besides beer for 2 weeks (severe) and only 1 meal per day meeting <75% of estimated energy needs for >6 months (severe). PLAN: -continue Librium 10 TID., out of bed. -Advance diet as able. -PT -Discharge planning. Declines SNF. -Antiemetics. Anticipate discharge home with SUDS evaluation after discharge. Time-Based Coding :: [TOTAL MINUTES] spent with patient and on the chart (including review of chart, obtaining history, exam, reviewing outside data, placing orders, documenting exam and treatment plan, and counseling patient) on [DATE]. Quality VTE Deep Vein Thrombosis/Pulmonary Embolism Present on Admission: No
[2024-12-05] MEDS: ENOXAPARIN 40 MG/0.4 ML SYRINGE SUBCUT (09:11)
[2024-12-05] MEDS: FOLIC ACID 1 MG TABLET PO (09:12)
[2024-12-05] MEDS: MULTIVITAMIN 1 TABLET 1 TAB PO (09:12)
[2024-12-05] MEDS: FAMOTIDINE 20 MG/2 ML VIAL IV ×2 (09:13→20:14)
[2024-12-05] MEDS: AZITHROMYCIN 250 MG TABLET PO (09:13)
[2024-12-05] MEDS: SODIUM CHLORIDE 0.9% FLUSH 10 ML IV ×2 (09:14→20:14)
[2024-12-05] MEDS: BENZOCAINE/MENTHOL 1 LOZ PKT 1 EACH PO ×3 (10:10→20:14)
--- NOTE | 2024-12-05 11:15 | PT.IPTN ---
Current Diagnoses Alcohol dependence with withdrawal, unspecified (11/27/24) Physical Therapy Treatment Note M2 PT-IP Current Condition Start: 12/03/24 15:34 Freq: NEEDED Status: Active Protocol: Document 12/03/24 14:40 AB (Rec: 12/03/24 15:49 AB [id number]) Physical Therapy Current Condition Current Condition Evaluation Date 12/03/24 Treatment Diagnosis hyponatremia;alcoholic liver dse;alcoholic pancreatitis ; difficulty in walk Onset Date 11/27/24 M3 PT-IP Subjective Start: 12/03/24 15:34 Freq: NEEDED Status: Active Protocol: Document 12/05/24 11:15 AB (Rec: 12/05/24 13:07 AB [id number]) Subjective Physical Therapy Visit Type Type Treatment Note Visit Start Time 11:15 Visit Stop Time 11:30 Number of FLATBED DRIVER Visits 0 Physical Therapy Visit Comments Patient Comments agreeable to do PT M4 PT-IP Mobility and Gait Start: 12/03/24 15:34 Freq: NEEDED Status: Active Protocol: Document 12/05/24 11:15 AB (Rec: 12/05/24 13:07 AB [id number]) PT-Bed Mobility Assessment Supine to Sit Supine to Sit Moderate Assistance,1 Person Assistance,Head of Bed Elevated PT-Transfer Assessment Sit to and From Stand Sit to and from Minimal Assistance,1 Person Assistance,Use of Upper Stand Extremities Equipment Transfer Assistive Gait Belt,Front Wheeled Walker Device Orthotic/Prosthetic No Devices or Brace: Transfers Transfer Destination Toilet Transfer Technique ambulated Transfer Ability Level of Assist Minimal Assistance,1 Person Assistance,Use of Upper Extremities Comments Mobility Comments pt in bed asleep. woke pt up and agreed to get up. completed supine to sit mod A and cues. able to sit on EOB CGA. pt requested to use the toilet. sit to stand from EOB min a and cues and ambulated using FWW ~ 15 ft min A and cues. presents with unsteady slow paced gait . Left pt with NAC to assist after using the toilet. Gait Assessment Gait Gait Assistance Minimum Assistance Required: Distance (Feet) 15 Able to Maintain Yes Weight Bearing Status During Gait Assistive Devices Assistive Device Gait Belt,Front Wheeled Walker Orthotic/Prosthetic No Devices or Brace: Gait Deviations General Gait Pattern Decreased Stride Length,Decreased Feet Clearance,Step- to Gait Factors Limiting Gait Function Factors Limiting Decreased Activity Tolerance,Decreased Strength, Gait Function Difficulty Following Directions,Limited Range of Motion ,Pain,Poor Balance,Poor Safety Awareness M5 PT-IP Objective Assessments Start: 12/03/24 15:34 Freq: NEEDED Status: Active Protocol: Document 12/04/24 14:14 KJ (Rec: 12/04/24 14:18 KJ [id number]) Orientation Orientation/Cognition Level of Alertness Alert Orientation Name,Age,Birthday,Month,Date,Year,Day of Week,Place, Situation M6 PT-IP Treatment Start: 12/03/24 15:34 Freq: NEEDED Status: Active Protocol: Document 12/05/24 11:15 AB (Rec: 12/05/24 13:07 AB [id number]) Physical Therapy Treatment Education Education Provided Safety M7 PT-IP Assessment and Plan Start: 12/03/24 15:34 Freq: NEEDED Status: Active Protocol: Document 12/05/24 11:15 AB (Rec: 12/05/24 13:07 AB [id number]) PT Summary Assessment and Plan Potential Rehabilitation Fair Potential Summary Impairments Pain,ROM,Strength,Balance,Coordination,Sensation,Tone, Cognition,Bed Mobility,Transfers,Gait,Activity Tolerance Progress Towards Slow Progress due to Medical Issues,Slow Progress due Goals to Activity Tolerance,Slow Progress - Other Assessment Summary pt continues to require min A with ambulation using FWW . pt will require 24/7 assist with all mobilities and will benefit from SNF rehab. will continue to assess progress. Goals Bed Mobility Goal Standby Assistance Transfer Goal Standby Assistance,Front Wheeled Walker Gait Goal Standby Assistance,Front Wheel Walker Gait Distance 150 Other Goals improve transfers, ambulation using LRAD/without AD 200 ft mod I Days to Meet Goals 10 Frequency of Treatment Frequency Of Once a Day Treatment Treatment Plan Physical Therapy Bed Mobility Training,Transfer Training,Gait Training, Treatment Plan Therapeutic Exercise,Balance Retraining,Discharge Planning,Hot or Cold Pack,Neuromuscular Re-ed, Coordination Retraining Precautions Other Precautions falls; contact precautions (enteric) due to norovirus Recommendations To Nursing Amount of Assist 1 Person Assist Needed Discharge Recommendations PT Discharge Home with 24/7 Assist Available,Home Health,SNF Rehab, Recommendations Home vs SNF Equipment Needed for FWW Home Before Discharge Transportation Needs Private Vehicle,Wheelchair/Cabulance at Discharge - PT assist 1
[2024-12-05 12:00] VITALS: BP 107/64; PULSE 110; RESP 15; TEMP 36.8; O2SAT 98
--- NOTE | 2024-12-05 12:57 | DI.US.S_ITS ---
PROCEDURE: US ABDOMEN LIMITED INDICATIONS: rule out ascites TECHNIQUE: Real-time focused scanning was performed of the abdomen, with image documentation. COMPARISON: None. FINDINGS: Limited study given clinically reported abdominal distension and concern for presence of ascites. All 4 quadrants show no evidence of abnormal free fluid. IMPRESSION: No ascites found all 4 quadrants. Dictated by: Aries Perez M.D. on 12/05/2024 at 13:35 Approved by: Aries Perez M.D. on 12/05/2024 at 13:37
[2024-12-05] MEDS: METOCLOPRAMIDE 10 MG/2 ML INJ IV (13:38)
--- NOTE | 2024-12-05 13:56 | DIET.PN1 ---
Dietary Progress Note Assessment: Spoke to nursing staff, reports pt was having improved PO intakes last few days, EMR with 50-100% po intakes recorded. Today however, vomiting and difficulty tolerating any food. Will trial Ensure Clear tonight and tomorrow. Ht: 162.56 cm Wt: 78 kg BMI: 29.5 Last BM: 12/05/24 (12/05/24 06:27) MNA: 9 Arvind Score: 20 Diet: 11/28/24 Breakfast Heart Healthy Diet Diet Modifications: Sodium Level: 2 gm Sodium Food Texture: Level 7 - Regular Liquid Consistency: Level 0 - Thin Nutrition Percent Meal Consumed 100% 12/04/24 09:52 Percent Meal Consumed 50% 12/03/24 17:59 Labs: RBC 3.51 X10^6/uL (4.5-5.9) L 12/03/24 04:25 Hgb 11.8 g/dL (13.5-17.5) L 12/03/24 04:25 Hct 34.8 % (41-53) L 12/03/24 04:25 Creatinine 0.57 mg/dL (0.66-1.25) L 12/03/24 04:25 Lactate 1.5 mmol/L (0.7-2.1) 11/28/24 06:07 Electronically Signed by: Christy Castro 12/05/24 13:56 Clinical Dietitian [address] [address]
--- NOTE | 2024-12-05 14:29 | OT.IPNOTE ---
Attempted OT treatment and pt awaken to see if he wanted to do grooming/oral care, or bathing. Pt refused and states just wants to sleep.
--- NOTE | 2024-12-05 15:45 | CM.DPNOTE ---
DCP Continued: Reviewed EMR and team rounds for pt?s medical status. Per hospitalist, pt will need one more day to continue librium and antiemetics before dc home to complete SIDNEY assessment outpatient. AUTOMOTIVE MACHINIST called [facility] Crisis Outreach Team (OT) Provider Line (# [phone]) and spoke with OT Archie. Provided pt information for referral for [facility] follow up call upon discharge. It is reported that pt will receive a follow up call on 12/06 afternoon by [facility] member, Ana Maria, who will assist pt in completing SIDNEY assessment for residential SIDNEY placement. Pt declines SNF and home health referral at this time. Plan: Anticipating dc home, girlfriend (Lucian) to transport, on 12/06 or when medically cleared. CM Team will continue to follow for coordination of discharge plans. JEREMIAH Cisneros
--- NOTE | 2024-12-05 17:50 | PC.NURSE ---
Pt not feeling well most of shift, very sleepy and continual abdominal pain. Ultrasound of Abd completed. Added on PO oxy for better pain management. Little appetite. Less loose stools today.
[2024-12-05] MEDS: SODIUM CHLORIDE 0.9% 250 ML 21 ML IV (19:55)
[2024-12-05 20:00] VITALS: BP 100/52; PULSE 125; RESP 19; TEMP 36.5; O2SAT 98
[2024-12-05] MEDS: IBUPROFEN 400 MG TABLET PO (20:14)
[2024-12-06] VITALS: BP 86/52; PULSE 107; RESP 21; O2SAT 92
[2024-12-06] MEDS: ONDANSETRON 4 MG/2 ML INJ IV (01:28)
[2024-12-06] MEDS: PIPERACILLIN/TAZO 3.375 GM in SODIUM CHLORIDE 0.9% 100 ML IV (03:03)
[2024-12-06 04:00] VITALS: BP 88/54; PULSE 101; RESP 18; O2SAT 96
[2024-12-06 05:34] LABS: Hematocrit 34.9 % (41-53); Hemoglobin 11.9 g/dL (13.5-17.5); Mean Corpuscular HGB Conc 34.0 % (30-36); Mean Corpuscular Hemoglobin 33.5 PG (26-34); Mean Corpuscular Volume 98.6 fL (80-100); Platelet Count 134 X10^3/uL (150-400)
[2024-12-06 05:35] LABS: Add Manual Diff / Slide Review YES
[2024-12-06 05:41] LABS: Blood Urea Nitrogen 13 mg/dL (9-20); Calcium 7.5 mg/dL (8.4-10.2); Carbon Dioxide 22 mmol/L (22-32); Chloride 104 mmol/L (98-107); Estimated Glomerular Filt Rate > 60 mL/min (>60); Glucose 96 mg/dL (70-99); HEMOLYSIS < 15 (0-50); Potassium 3.3 mmol/L (3.4-5.1); Sodium 134 mmol/L (137-145)
[2024-12-06 06:05] LABS: Anisocytosis 1+; Band Neutrophils Percent 33.0 % (3-7); Basophils Percent Manual 3.0 % (0-1); Eosinophils Percent Manual 1.0 % (2-4); Lymphocytes Percent Manual 13.0 % (25-45); Monocytes Percent Manual 2.0 % (2-11); Neutrophils Absolute Manual 21060 /uL (3000-5900); Segmented Neutrophils Percent 48.0 % (38-70); Target Cells 1+; Total Cells Counted 100; Toxic Granulation Present
--- NOTE | 2024-12-06 08:06 | DI.RAD.S_ITS ---
PROCEDURE: XR CHEST 2V INDICATIONS: leukocytosis, mediastinal adenopathy on CT, assess for pna TECHNIQUE: 2 views of the chest were acquired. COMPARISON: [facility], CR, XR CHEST 2V, 11/27/2024, 19:10. FINDINGS AND IMPRESSION: Limited study with very low lung volumes. On lateral view, possible basal opacities are seen which could represent mild airspace disease or atelectasis. No pleural effusions. Borderline cardiomegaly. Unremarkable osseous structures. Dictated by: Dann Cox M.D. on 12/06/2024 at 9:03 Approved by: Dann Cox M.D. on 12/06/2024 at 9:04
[2024-12-06] MEDS: ENOXAPARIN 40 MG/0.4 ML SYRINGE SUBCUT (08:15)
[2024-12-06] MEDS: FAMOTIDINE 20 MG/2 ML VIAL IV ×2 (08:16→21:15)
[2024-12-06] MEDS: SODIUM CHLORIDE 0.9% FLUSH 10 ML IV ×2 (08:16→23:52)
[2024-12-06] MEDS: AZITHROMYCIN 250 MG TABLET PO (08:16)
[2024-12-06] MEDS: POTASSIUM CHLORIDE 20 MEQ TAB 40 MEQ PO ×2 (08:16→15:05)
[2024-12-06] MEDS: MULTIVITAMIN 1 TABLET 1 TAB PO (08:16)
[2024-12-06] MEDS: FOLIC ACID 1 MG TABLET PO (08:16)
[2024-12-06 09:53] LABS: Clostridium Difficile Tox PCR Negative for C. diff (Negative)
[2024-12-06] MEDS: FUROSEMIDE 40 MG/4 ML VIAL IV ×2 (10:15→18:37)
[2024-12-06 10:21] LABS: Lactate (Lactic Acid) 2.0 mmol/L (0.7-2.1)
[2024-12-06] MEDS: ALBUMIN HUMAN 12.5 GM/50 ML VIAL IV (11:02)
--- NOTE | 2024-12-06 11:14 | CM.DPC ---
Discharge Planing Cont. Discharge on hold until Medically Stable. WBC 26.0, Hypotension, increased anasarca, inability to move BLE. Patient has reported that he has a PMH of Myasthenia Gravis and that he has not been taking his medication(s) to manage that disease process. Prednisone started today. Blood cultures pending. Repeat CXR negative. DCP will continue to monitor for addition needs.
--- NOTE | 2024-12-06 11:27 | PT-IP ANOTE ---
checked with nurse and stated that pt has a lot of pain this morning and to hold off on PT for now. per hospitalist during rounds meeting: pt stated that he has myasthenia gravis and has not been taking meds and will try to start pt on medication for this.
[2024-12-06 12:00] VITALS: BP 98/59; PULSE 109; RESP 14; TEMP 36.4; O2SAT 95
--- NOTE | 2024-12-06 12:10 | P.PN_ITS ---
Subjective Subjective Interval history: 44 yo male w/alcohol dependence admitted w/alcohol w/d w/delirium and alcohol induced hepatitis. He required ICU admission for severe w/d. He initially required a precedex infusion which was d/c'd and he was transitioned to benzodiazepines after he developed hypotension. He was found to have acute alcohol induced pancreatitis as well. He is notably weak and unsteady but has declined a SNF for rehab. He is interested in evaluation for residental substance use disorder treatment. Patient reports he had been feeling better for couple of days but over the last couple of days has been feeling worse. He reports he has had increasing abdominal pain. He states that he has had very weak legs and has not been able to walk. He finds a very unusual as he is typically walking everywhere. He does complain of some pain in both hips, left greater than right. He also has had some shortness of breath efforts to walk across the room. He denies dysuria. No cough. His stools remain loose, but he denies any diarrhea. Exam Vital Signs (past 8 hours): - 12/05/24 20:00 Temperature 97.7 F Pulse Rate 125 H Respiratory Rate 19 Blood Pressure 100/52 L Pulse Oximetry 98 Oxygen Flow Rate 0 Oxygen Delivery Method Room Air Oxygen Flow Rate 0 Narrative Exam Narrative: GEN: Ill-appearing middle-aged male, Alert and oriented x 3, NAD HEENT:NC, Face symmetric, pupils equal round reactive to light, sclerae are icteric bilaterally, dentition fair CHEST: Respiratory excursions symmetric, coarse but CTAB CV: RRR, no M/R/G ABD: Soft, distended, mild to moderately diffusely tender, BT present in all 4 quadrants EXTR: warm, well perfused, no C/C, 3 to 4+ pitting edema diffusely SKIN: warm and dry, jaundice noted NEURO: Alert and oriented x 3, he is extremely weak, unable to hold up his legs, speech is very difficult to understand Objective Labs 12/06/24 04:36 12/06/24 04:36 [facility] Medical History Alcoholic liver disease Hepatomegaly Alcoholic pancreatitis Alcohol intoxication No significant medical problems Social History household members: significant other and children Smoking Status: Former smoker alcohol intake: current Assessment & Plan Assessment & Plan narrative: 1. Severe alcohol w/d w/delirium Improved. He is now alert and oriented. He remains on Librium 10 mg t.i.d.. Will wean that to twice daily today with a plan to discontinue after tomorrow. 2. Alcohol induced pancreatitis His last lipase was done on December 02. He does have abdominal pain which is diffuse. We will repeat a lipase today. 3. Alcohol induced hepatitis He remains jaundiced with scleral icterus. Overall, his LFTs were improving and his bilirubin was stable at 13.5 when his labs were last checked on 12/03/2024. Will repeat labs today. 4. Hypokalemia Will replete monitor. 5. Generalized weakness Upon discussing with the patient today, he advises he was diagnosed with myasthenia gravis at the age of 10. Does not take his pyridostigmine consistently. He states he last took it about 6 months ago. While he does not appear to have a myasthenia crisis, he certainly is quite weak. Will add prednisone 60 mg daily and initiate pyridostigmine treatment. We only have it available IV on our formulary. Will monitor his response. 6. Anasarca He does have significant anasarca with dramatic edema in his legs as well as abdominal wall. His blood pressures have been soft. Will give IV albumin and a single dose of diuresis today and see how he responds. Code status full Prophy On lovenox. Platelets have been stable and above 120K. Dispo ICU. Time-Based Coding :: [TOTAL MINUTES] spent with patient and on the chart (including review of chart, obtaining history, exam, reviewing outside data, placing orders, documenting exam and treatment plan, and counseling patient) on [DATE]. Quality VTE Deep Vein Thrombosis/Pulmonary Embolism Present on Admission: No
[2024-12-06 12:30] LABS: Lipase 379 U/L (23-300)
[2024-12-06 12:31] LABS: Alanine Aminotransferase 47 IU/L (<50); Albumin 2.3 g/dL (3.5-5.0); Albumin Globulin Ratio 0.6 (1.0-2.8); Alkaline Phosphatase 329 U/L (38-126); Globulin 3.7 g/dL (1.7-4.1); HEMOLYSIS < 15 (0-50); Total Protein 6.0 g/dL (6.3-8.2)
[2024-12-06] MEDS: ALBUMIN HUMAN 25 GM/100 ML VIAL IV (18:37)
[2024-12-06 20:00] VITALS: BP 94/54; PULSE 107; RESP 14; TEMP 36.9; O2SAT 97
[2024-12-07] VITALS: RESP 18
[2024-12-07] MEDS: ONDANSETRON 4 MG/2 ML INJ IV
[2024-12-07 05:55] LABS: Hematocrit 35.8 % (41-53); Hemoglobin 12.0 g/dL (13.5-17.5); Mean Corpuscular HGB Conc 33.5 % (30-36); Mean Corpuscular Hemoglobin 33.0 PG (26-34); Mean Corpuscular Volume 98.6 fL (80-100); Platelet Count 142 X10^3/uL (150-400)
[2024-12-07 05:56] LABS: Add Manual Diff / Slide Review YES
[2024-12-07 06:06] LABS: Alanine Aminotransferase 43 IU/L (<50); Albumin 2.7 g/dL (3.5-5.0); Albumin Globulin Ratio 0.7 (1.0-2.8); Alkaline Phosphatase 308 U/L (38-126); Blood Urea Nitrogen 19 mg/dL (9-20); Calcium 8.0 mg/dL (8.4-10.2); Carbon Dioxide 19 mmol/L (22-32); Chloride 103 mmol/L (98-107); Estimated Glomerular Filt Rate 25 mL/min (>60); Globulin 4.0 g/dL (1.7-4.1); Glucose 109 mg/dL (70-99); HEMOLYSIS < 15 (0-50); Magnesium 2.1 mg/dL (1.6-2.3); Potassium 3.7 mmol/L (3.4-5.1); Sodium 134 mmol/L (137-145); Total Protein 6.7 g/dL (6.3-8.2)
[2024-12-07 06:25] LABS: Anisocytosis 1+; Band Neutrophils Percent 33.0 % (3-7); Lymphocytes Percent Manual 12.0 % (25-45); Monocytes Percent Manual 2.0 % (2-11); Neutrophils Absolute Manual 24424 /uL (3000-5900); Segmented Neutrophils Percent 53.0 % (38-70); Target Cells 1+; Total Cells Counted 100; Toxic Granulation Present
[2024-12-07 08:00] VITALS: BP 90/57; PULSE 84; RESP 18; O2SAT 93
[2024-12-07] MEDS: FOLIC ACID 1 MG TABLET PO (08:57)
[2024-12-07] MEDS: MULTIVITAMIN 1 TABLET 1 TAB PO (08:57)
[2024-12-07] MEDS: ENOXAPARIN 40 MG/0.4 ML SYRINGE SUBCUT (08:57)
[2024-12-07] MEDS: AZITHROMYCIN 250 MG TABLET PO (08:57)
[2024-12-07] MEDS: SODIUM CHLORIDE 0.9% FLUSH 10 ML IV ×2 (08:58→21:30)
--- NOTE | 2024-12-07 15:09 | PT.IPTN ---
Current Diagnoses Alcohol dependence with withdrawal, unspecified (11/27/24) Physical Therapy Treatment Note M2 PT-IP Current Condition Start: 12/03/24 15:34 Freq: NEEDED Status: Active Protocol: Document 12/03/24 14:40 AB (Rec: 12/03/24 15:49 AB [id number]) Physical Therapy Current Condition Current Condition Evaluation Date 12/03/24 Treatment Diagnosis hyponatremia;alcoholic liver dse;alcoholic pancreatitis ; difficulty in walk Onset Date 11/27/24 M3 PT-IP Subjective Start: 12/03/24 15:34 Freq: NEEDED Status: Active Protocol: Document 12/07/24 15:05 KJ (Rec: 12/07/24 15:09 KJ [id number]) Subjective Physical Therapy Visit Type Type Treatment Note Visit Start Time 14:23 Visit Stop Time 15:01 Physical Therapy Visit Comments Patient Comments Feels a little better today. Legs feel swollen M4 PT-IP Mobility and Gait Start: 12/03/24 15:34 Freq: NEEDED Status: Active Protocol: Document 12/07/24 15:05 KJ (Rec: 12/07/24 15:09 KJ [id number]) PT-Bed Mobility Assessment Rolling Type of Rolling Roll to Left Level of Assist Standby Assistance Supine to Sit Supine to Sit Standby Assistance Sit to Supine Sit to Supine Minimal Assistance Gait Assessment Gait Gait Assistance Contact Guard Assist Required: Distance (Feet) 25 Assistive Devices Assistive Device Gait Belt,Front Wheeled Walker M5 PT-IP Objective Assessments Start: 12/03/24 15:34 Freq: NEEDED Status: Active Protocol: Document 12/07/24 15:05 KJ (Rec: 12/07/24 15:09 KJ [id number]) Orientation Orientation/Cognition Level of Alertness Alert Orientation Name,Age,Birthday,Month,Date,Year,Day of Week,Place, Situation M6 PT-IP Treatment Start: 12/03/24 15:34 Freq: NEEDED Status: Active Protocol: Document 12/07/24 15:05 KJ (Rec: 12/07/24 15:09 KJ [id number]) Physical Therapy Treatment Exercises Exercises Ankle Pumps,Quad Sets,Short Arc Quads Education Education Provided Safety Other Treatments Other Treatment Reviewed bed exercises. Assisted pt w/bed mobility and Performed ambulation in room and bathroom. provided cuing for safety M7 PT-IP Assessment and Plan Start: 12/03/24 15:34 Freq: NEEDED Status: Active Protocol: Document 12/07/24 15:05 KJ (Rec: 12/07/24 15:09 KJ [id number]) PT Summary Assessment and Plan Potential Rehabilitation Good Potential Status of Condition Evolving at Evaluation Summary Impairments Activity Tolerance Progress Towards Slow Progress - Other Goals Assessment Summary Pt is ambulating more, although continues to be slow. Treatment Plan Other continue to progress mobility in room Recommendations and Next Treatment Focus
--- NOTE | 2024-12-07 18:32 | P.PN_ITS ---
Subjective Subjective Interval history: 44 yo male w/alcohol dependence admitted w/alcohol w/d w/delirium and alcohol induced hepatitis. He required ICU admission for severe w/d. He initially required a precedex infusion which was d/c'd and he was transitioned to benzodiazepines after he developed hypotension. He was found to have acute alcohol induced pancreatitis as well. He is notably weak and unsteady but has declined a SNF for rehab. He is interested in evaluation for residental substance use disorder treatment. Yesterday, patient reported that he has had myasthenia gravis since he was 10 years old. Takes Mestinon intermittently and last used it about 6 months ago. Today he reports he is feeling better overall since starting IV pyridostigmine. He is able to move his left leg today. He continues to have some shortness of breath when he is trying to get to the bathroom. He does continue to have significant swelling in his legs. He notes he is more anxious overall and says when he was in rehab for his alcohol dependence he was given clonidine, hydroxyzine, and vitamin-D. He wonders if he can receive those medications here as well. Exam Vital Signs (past 8 hours): Oxygen Delivery Method Room Air Oxygen Flow Rate 0 Narrative Exam Narrative: GEN: Ill-appearing middle-aged male, Alert and oriented x 3, NAD HEENT:NC, Face symmetric, pupils equal round reactive to light, more of his eyes are visible today compared to yesterday, sclerae are icteric bilaterally, dentition fair, CHEST: Respiratory excursions symmetric, coarse but CTAB CV: RRR, no M/R/G ABD: Soft, distended, mild to moderately diffusely tender, BT present in all 4 quadrants EXTR: warm, well perfused, no C/C, 3 to 4+ pitting edema diffusely, there is a tender area right along his left mid lateral thigh SKIN: warm and dry, jaundice noted NEURO: Alert and oriented x 3, today he is able to raise his left leg independently, his voice is clear and he has more volume to his voice as well Objective Labs 12/07/24 05:19 12/07/24 05:19 Labs: Laboratory Results - last 24 hr 12/07/24 05:19 WBC 28.4 H RBC 3.63 L Hgb 12.0 L Hct 35.8 L MCV 98.6 MCH 33.0 MCHC 33.5 RDW 18.4 H Plt Count 142 L Neut % (Auto) Not Reportable Lymph % (Auto) Not Reportable Hutchinson % (Auto) Not Reportable Eos % (Auto) Not Reportable Baso % (Auto) Not Reportable Lymph # (Auto) Not Reportable Hutchinson # (Auto) Not Reportable Baso # (Auto) Not Reportable Total Counted 100 Seg Neutrophils % 53.0 Band Neutrophils % 33.0 H Lymphocytes % (Manual) 12.0 L Monocytes % (Manual) 2.0 Neutrophils # (Manual) [id number] H Toxic Granulation Present H Platelet Estimate Decreased on smear RBC Morphology See below Anisocytosis 1+ H Target Cells 1+ H Sodium 134 L Potassium 3.7 Chloride 103 Carbon Dioxide 19 L BUN 19 Creatinine 2.98 H Estimated GFR 25 L BUN/Creatinine Ratio 6.4 Glucose 109 H Calcium 8.0 L Magnesium 2.1 Total Bilirubin 16.4 H AST 57 ALT 43 Alkaline Phosphatase 308 H Total Protein 6.7 Albumin 2.7 L Globulin 4.0 Albumin/Globulin Ratio 0.7 L [facility] [place] Medical History Alcoholic liver disease Hepatomegaly Alcoholic pancreatitis Alcohol intoxication No significant medical problems Social History household members: significant other and children Smoking Status: Former smoker alcohol intake: current Assessment & Plan Assessment & Plan narrative: 1. Myasthenia gravis Probable flare secondary to his norovirus and acute illness. He is now received 2 doses of prednisone as well as IV pyridostigmine x 3 doses. He has more strength in his legs, improved voice quality and volume, and is able to open his eyes wider than he could yesterday. He is feeling more jittery from the steroids. Will plan to decrease prednisone dose tomorrow to 40 mg and make that his final dose. There is no oral Mestinon on hospital formulary. Yesterday pharmacy attempted to get in touch with the patient's spouse but was unable to do so. Therefore we are continuing to use IV dosing 2. Alcohol-induced hepatitis and pancreatitis His bilirubin continues to rise and is up to 16.4 today. AST and ALT are improved. Alkaline phosphatase is stable at 308. His lipase was coming down yesterday and was 379 which was improved from prior at 787. 3. Hypokalemia Improve with repletion 4. Acute kidney injury I did attempt diuresis yesterday with albumin and furosemide. He received 2 doses total of furosemide 40 mg. His creatinine unfortunately bumped from 1.38 yesterday to 2.98 today. No further diuresis was pursued. I did ask nursing to use Tubigrip wraps today to help promote reduce swelling and moving fluids intravascularly. His albumin is improved from 2.3-2.7 today. Will repeat his creatinine tomorrow and hopefully it will show some improvement. He continues to have anasarca. 5. Generalized weakness Likely multifactorial from his severe alcohol withdrawal with delirium that has now resolved, alcohol-induced hepatitis and pancreatitis, as well as his myasthenia gravis with flare. Continue working with therapies as able 6. Alcohol dependence Advised that we can not use clonidine given his ongoing difficulties with hypotension. However we can use hydroxyzine and vitamin-D and these have been ordered Resolved issues: Severe alcohol w/d w/delirium Code status full Prophy On lovenox. Platelets have been stable Dispo ICU. Time-Based Coding :: [TOTAL MINUTES] spent with patient and on the chart (including review of chart, obtaining history, exam, reviewing outside data, placing orders, documenting exam and treatment plan, and counseling patient) on [DATE]. Quality VTE Deep Vein Thrombosis/Pulmonary Embolism Present on Admission: No
[2024-12-07 20:03] VITALS: BP 108/64; PULSE 97; RESP 16; TEMP 36.1; O2SAT 96
[2024-12-07] MEDS: MELATONIN 3 MG TABLET 6 MG PO (21:28)
[2024-12-07] MEDS: FAMOTIDINE 20 MG/2 ML VIAL IV (21:29)
[2024-12-08] MEDS: MORPHINE 4 MG/ML INJ 3 MG IV ×2 (00:11→02:36)
[2024-12-08] MEDS: ONDANSETRON 4 MG/2 ML INJ IV (00:11)
[2024-12-08 00:20] VITALS: BP 97/56; PULSE 96; RESP 15; TEMP 36.6; O2SAT 97
[2024-12-08] MEDS: METOCLOPRAMIDE 10 MG/2 ML INJ IV (02:37)
[2024-12-08 04:24] VITALS: BP 99/61; PULSE 100; RESP 16; TEMP 36.3; O2SAT 98
[2024-12-08 07:00] VITALS: BP 103/64; PULSE 94; RESP 18; O2SAT 96
--- NOTE | 2024-12-08 07:46 | P.PN_ITS ---
Subjective Subjective Interval history: Summary: 44 yo male w/alcohol dependence admitted w/alcohol w/d w/delirium and alcohol induced hepatitis. He required ICU admission for severe w/d. He initially required a precedex infusion which was d/c'd and he was transitioned to benzodiazepines after he developed hypotension. He was found to have acute alcohol induced pancreatitis as well. He is notably weak and unsteady but has declined a SNF for rehab. He is interested in evaluation for residental substance use disorder treatment. Yesterday, patient reported that he has had myasthenia gravis since he was 10 years old. Takes Mestinon intermittently and last used it about 6 months ago. Today he reports he is feeling better overall since starting IV pyridostigmine. He is able to move his left leg today. He continues to have some shortness of breath when he is trying to get to the bathroom. He does continue to have significant swelling in his legs. He notes he is more anxious overall and says when he was in rehab for his alcohol dependence he was given clonidine, hydroxyzine, and vitamin-D. He wonders if he can receive those medications here as well. 12/01-: Slow progress with EtOH episode. Restarted Mestinon 12/07 after pt. mentioned he has MG and takes it intermittently. S: He was still very weak and has difficulty getting out of bed without assist. He was started on his medication for myasthenia gravis over the weekend. He feels like this might be helping a little bit. No cough. O: NAD, alert and oriented. Fluent speech. Lungs are clear, normal rate and effort. Heart is regular, no murmur gallop or rub. Abdomen is soft, non distended. Extremities are free of edema. A/P: 1. Myasthenia gravis Probable flare secondary to his norovirus and acute illness. He is now received 2 doses of prednisone as well as IV pyridostigmine x 3 doses. He has more strength in his legs, improved voice quality and volume, and is able to open his eyes wider than he could yesterday. He is feeling more jittery from the steroids. Will plan to decrease prednisone dose tomorrow to 40 mg and make that his final dose. There is no oral Mestinon on hospital formulary. Yesterday pharmacy attempted to get in touch with the patient's spouse but was unable to do so. Therefore we are continuing to use IV dosing 2. Alcohol-induced hepatitis and pancreatitis, improved. His bilirubin continues to rise and is up to 16.4 today. AST and ALT are improved. Alkaline phosphatase is stable at 308. His lipase was coming down yesterday and was 379 which was improved from prior at 787. 3. Hypokalemia, improved. Improve with repletion 4. Acute kidney injury I did attempt diuresis yesterday with albumin and furosemide. He received 2 doses total of furosemide 40 mg. His creatinine unfortunately bumped from 1.38 yesterday to 2.98 today. No further diuresis was pursued. I did ask nursing to use Tubigrip wraps today to help promote reduce swelling and moving fluids intravascularly. His albumin is improved from 2.3-2.7 today. Will repeat his creatinine tomorrow and hopefully it will show some improvement. He continues to have anasarca. 5. Generalized weakness, active. Likely multifactorial from his severe alcohol withdrawal with delirium that has now resolved, alcohol-induced hepatitis and pancreatitis, as well as his myasthenia gravis with flare. Continue working with therapies as able 6. Alcohol dependence, improved. Advised that we can not use clonidine given his ongoing difficulties with hypotension. However we can use hydroxyzine and vitamin-D and these have been ordered Resolved issues: Severe alcohol w/d w/delirium PLAN: -Contine Pyrostigmine. -Needs SNF. -Thiamine 100 QD. Exam Vital Signs (past 8 hours): - 12/08/24 00:20 12/08/24 04:24 Temperature 97.8 F 97.3 F L Pulse Rate 96 H 100 H Respiratory Rate 15 16 Blood Pressure 97/56 L 99/61 Pulse Oximetry 97 98 Oxygen Flow Rate 0 0 Oxygen Delivery Method Room Air Oxygen Flow Rate 0 Objective Labs 12/07/24 05:19 12/07/24 05:19 [facility] Medical History Alcoholic liver disease Hepatomegaly Alcoholic pancreatitis Alcohol intoxication No significant medical problems Social History household members: significant other and children Smoking Status: Former smoker alcohol intake: current Assessment & Plan Time-Based Coding :: [TOTAL MINUTES] spent with patient and on the chart (including review of chart, obtaining history, exam, reviewing outside data, placing orders, documenting exam and treatment plan, and counseling patient) on [DATE]. Quality VTE Deep Vein Thrombosis/Pulmonary Embolism Present on Admission: No
[2024-12-08] MEDS: AZITHROMYCIN 250 MG TABLET PO (08:38)
[2024-12-08] MEDS: FOLIC ACID 1 MG TABLET PO (08:38)
[2024-12-08] MEDS: CHOLECALCIFEROL (VITAMIN D3) 1,000 UNIT TABLET 2000 UNIT PO (08:38)
[2024-12-08] MEDS: MULTIVITAMIN 1 TABLET 1 TAB PO (08:38)
[2024-12-08] MEDS: SODIUM CHLORIDE 0.9% FLUSH 10 ML IV (08:39)
[2024-12-08] MEDS: ENOXAPARIN 40 MG/0.4 ML SYRINGE SUBCUT (08:39)
--- NOTE | 2024-12-08 11:01 | PT.IPTN ---
Current Diagnoses Alcohol dependence with withdrawal, unspecified (11/27/24) Physical Therapy Treatment Note M2 PT-IP Current Condition Start: 12/03/24 15:34 Freq: NEEDED Status: Active Protocol: Document 12/08/24 10:38 SP (Rec: 12/08/24 16:10 SP [id number]) Physical Therapy Current Condition Current Condition Evaluation Date 12/03/24 Treatment Diagnosis hyponatremia;alcoholic liver dse;alcoholic pancreatitis ; difficulty in walk Onset Date 11/27/24 M3 PT-IP Subjective Start: 12/03/24 15:34 Freq: NEEDED Status: Active Protocol: Document 12/08/24 10:38 SP (Rec: 12/08/24 16:10 SP [id number]) Subjective Physical Therapy Visit Type Type Treatment Note Visit Start Time 10:38 Visit Stop Time 11:01 Notes SPTA assisted pt and SALES AND MARKETING INTERN Rima during tx for vistal assessment with pt permission and under direct instruction of SALES AND MARKETING INTERN. Number of SALES AND MARKETING INTERN Visits 1 Physical Therapy Visit Comments Patient Comments Feels a little better today, still feeling weak and thinks going to rehab facility to get stronger before can go home. Patient Goals going to rehab facility Therapy Pain Assessment Pain When Pain Assessed During Mobility Pain Present Pain Present Pain Reported Location Abdomen Scale Used moderate no value given Description Aching,Tender,With Movement Pain Behaviors Facial Grimacing,Holding Area Pain Management Re-positioning Techniques M4 PT-IP Mobility and Gait Start: 12/03/24 15:34 Freq: NEEDED Status: Active Protocol: Document 12/08/24 10:38 SP (Rec: 12/08/24 16:10 SP [id number]) PT-Bed Mobility Assessment Rolling Type of Rolling Roll to Left Level of Assist Standby Assistance Supine to Sit Supine to Sit Standby Assistance Sit to Supine Sit to Supine Moderate Assistance,1 Person Assistance,Head of Bed Elevated,Bedrails Scooting Scooting to Edge of Contact Guard Assistance Bed PT-Transfer Assessment Sit to and From Stand Sit to and from Minimal Assistance,1 Person Assistance,Use of Upper Stand Extremities Equipment Transfer Assistive Gait Belt,Front Wheeled Walker Device Orthotic/Prosthetic No Devices or Brace: Transfers Transfer Destination Bed Transfer Technique ambulated with FWW Transfer Ability Level of Assist Minimal Assistance,1 Person Assistance,Use of Upper Extremities Comments Mobility Comments Vitals: sup 97/ 59 HR 98 SaO2 99% on RA, seated 100/59, standing 110/66. HOB inclined approx 30deg, CGA LR L with bed rail and SL>sit and scoot EOB, takes time to complete low tolerance and abdomen discomfort reported. STS Min A with FWW, unsteady BUEs heavily WB on FWW and unsteady BLEs, gait bed>bench and pivot back to bed little trunk sways but no LOB CG-5%A, cues for foot clearance, step to gait, pivot FWW CGA support, back up fully to bed and reach back controlled sit onto bed. CGA. Mod A for BLEs up into bed sit>L SL then self LR to R and center self in bed bridge. Pt had call light and all needs in bed, bed alarmed before left. Gait Assessment Gait Gait Assistance Contact Guard Assist,Minimum Assistance,1 Person Assist Required: Distance (Feet) 10 Able to Maintain Yes Weight Bearing Status During Gait Assistive Devices Assistive Device Gait Belt,Front Wheeled Walker Orthotic/Prosthetic No Devices or Brace: Gait Deviations General Gait Pattern Antalgic,Decreased Stride Length,Decreased Feet Clearance,Lateral Trunk Lean,Step-to Gait Factors Limiting Gait Function Factors Limiting Decreased Activity Tolerance,Decreased Strength,Limited Gait Function Range of Motion,Pain,Poor Balance,Poor Safety Awareness Comments Gait Comments see mobillity comments Stair Climbing Assessment Comments Stair Climbing no stairs need to assess. Comments PT-Balance Assessment Sitting Balance and Reactions Static Sitting Good Balance Ability Dynamic Sitting Fair Balance Ability Standing Balance and Reactions Static Standing Fair Balance Ability Dynamic Standing Poor Balance Ability Device Used FWW M5 PT-IP Objective Assessments Start: 12/03/24 15:34 Freq: NEEDED Status: Active Protocol: Document 12/07/24 15:05 KJ (Rec: 12/07/24 15:09 KJ [id number]) Orientation Orientation/Cognition Level of Alertness Alert Orientation Name,Age,Birthday,Month,Date,Year,Day of Week,Place, Situation M6 PT-IP Treatment Start: 12/03/24 15:34 Freq: NEEDED Status: Active Protocol: Document 12/08/24 10:38 SP (Rec: 12/08/24 16:10 SP [id number]) Physical Therapy Treatment Education Education Provided Safety M7 PT-IP Assessment and Plan Start: 12/03/24 15:34 Freq: NEEDED Status: Active Protocol: Document 12/08/24 10:38 SP (Rec: 12/08/24 16:10 SP [id number]) PT Summary Assessment and Plan Potential Rehabilitation Good Potential Status of Condition Evolving at Evaluation Summary Impairments Pain,ROM,Strength,Balance,Bed Mobility,Transfers,Gait, Activity Tolerance Progress Towards Slow Progress due to Pain,Slow Progress due to Activity Goals Tolerance Assessment Summary Pt had decreased activitiy tolerance, required CGA during bedmobility, CG-10%A during transfers and gait, slow to mobilize with decreased strength and unsteady BUEs and BLEs today with FWW little trunk sways. Recommending SNF for progression strength, balance and progress gait with LRAD, PLOF no AD. Goals Bed Mobility Goal Standby Assistance Transfer Goal Standby Assistance,Front Wheeled Walker Gait Goal Standby Assistance,Front Wheel Walker Gait Distance 150 Other Goals improve transfers, ambulation using LRAD/without AD 200 ft mod I Days to Meet Goals 10 Frequency of Treatment Frequency Of Once a Day Treatment Treatment Plan Physical Therapy Bed Mobility Training,Transfer Training,Gait Training, Treatment Plan Therapeutic Exercise,Balance Retraining,Discharge Planning,Hot or Cold Pack,Neuromuscular Re-ed, Coordination Retraining Other further distance gait with LRAD, BLEs ex, transfers Recommendations and Next Treatment Focus Precautions Other Precautions falls; contact precautions (enteric) due to norovirus Recommendations To Nursing Amount of Assist 1 Person Assist Needed Discharge Recommendations PT Discharge SNF Rehab Recommendations Equipment Needed for FWW Home Before Discharge Transportation Needs Private Vehicle,Wheelchair/Cabulance at Discharge - PT assist 1
--- NOTE | 2024-12-08 11:03 | CM.DPNOTE ---
DCP Note INTELLECTUAL PROPERTY LEGAL ASSISTANT reviewed EMR per provider, pt now open to SNF. INTELLECTUAL PROPERTY LEGAL ASSISTANT met with pt in room. now open to SNF for short term rehab prior to INPT ETOH program. preference close to home as possible. (lives in [facility]) Joselin from [facility] confirms accepts straight Medicaid. sent referral. from Sharon at , reports Medicaid does not cover cost of therapies? from Rosaura at [facility], accepts straight Medicaid. will send if CMV declines. PASRR completed in anticipation of SNF. P: dc to SNF pending acceptance/auth. [facility] reviewing. will continue to follow closely for DCP Coordination VICKY Funes
[2024-12-08] MEDS: THIAMINE 100 MG TABLET PO (12:16)
[2024-12-08 13:01] LABS: Hematocrit 37.9 % (41-53); Hemoglobin 12.7 g/dL (13.5-17.5); Mean Corpuscular HGB Conc 33.4 % (30-36); Mean Corpuscular Hemoglobin 32.6 PG (26-34); Mean Corpuscular Volume 97.6 fL (80-100); Platelet Count 176 X10^3/uL (150-400)
[2024-12-08 13:08] LABS: Add Manual Diff / Slide Review YES
[2024-12-08 13:11] VITALS: TEMP 36.3
--- NOTE | 2024-12-08 13:16 | DI.RAD.S_ITS ---
PROCEDURE: XR CHEST 1V INDICATIONS: leukocytosis TECHNIQUE: One view of the chest was acquired. COMPARISON: [facility], CR, XR CHEST 2V, 12/06/2024, 8:05. [facility], CR, XR CHEST 2V, 11/27/2024, 19:10. FINDINGS: Surgical changes and devices: None. Lungs and pleura: Moderate lung volumes. Trace right pleural effusion. Airspace opacities in the right lower lobe. Mediastinum: Mediastinal contours appear normal. Heart size is normal. Bones and chest wall: No suspicious bony lesions. Overlying soft tissues appear unremarkable. IMPRESSION: Right lower lobe airspace opacities concerning for developing pneumonia with a trace right possible parapneumonic effusion. Dictated by: Salomon Humphreys M.D. on 12/08/2024 at 14:02 Approved by: Salomon Humphreys M.D. on 12/08/2024 at 14:03
[2024-12-08 13:20] LABS: Blood Urea Nitrogen 35 mg/dL (9-20); Calcium 7.7 mg/dL (8.4-10.2); Carbon Dioxide 15 mmol/L (22-32); Chloride 104 mmol/L (98-107); Estimated Glomerular Filt Rate 16 mL/min (>60); Glucose 103 mg/dL (70-99); Potassium 4.9 mmol/L (3.4-5.1); Sodium 132 mmol/L (137-145)
[2024-12-08 14:26] LABS: HEMOLYSIS 97 (0-50)
[2024-12-08 14:38] LABS: Anisocytosis 1+; Band Neutrophils Percent 4.0 % (3-7); Lymphocytes Percent Manual 9.0 % (25-45); Monocytes Percent Manual 2.0 % (2-11); Neutrophils Absolute Manual 33375 /uL (3000-5900); Segmented Neutrophils Percent 85.0 % (38-70); Total Cells Counted 100
[2024-12-08 14:39] LABS: Target Cells 1+
--- NOTE | 2024-12-08 15:40 | DI.CT.S_ITS ---
PROCEDURE: CT CHEST ABD PEL WO CON INDICATIONS: Leukocytosis and PARKER TECHNIQUE: After the administration of oral contrast, 5 mm thick sections acquired from the lung apices to the symphysis pubis. 5 mm thick coronal and sagittal reformats acquired, with additional 7 mm coronal MIP reformats through the lungs. For radiation dose reduction, the following was used: automated exposure control, adjustment of mA and/or kV according to patient size. COMPARISON: [facility], CT, CT CHEST ABD PEL W CON, 11/30/2024, 9:39. FINDINGS: Image quality: Diagnostic. CHEST: Lower Neck: No enlarged lymph nodes. Thyroid: No thyroid nodules which require sonographic follow up, per consensus guidelines. Axillae: No enlarged lymph nodes. Chest Wall: Unremarkable. Bones: Unremarkable. Lungs and Pleura: There is a small right pleural effusion. There is more prominent confluent consolidation in the right lower lobe posteriorly. Heart: Heart size is normal. No pericardial effusion. Thoracic Vessels: The aorta and pulmonary arteries demonstrate normal size. Mediastinum and Marcie: Stable enlarged bilateral mediastinal hilar nodes. Esophagus: No wall thickening. No hiatal hernia. ABDOMEN: Liver: Severe diffuse fatty infiltration. No definite focal lesion. Gallbladder: Hyperdense content, possibly sludge. Biliary ducts: No biliary dilation. Pancreas: No ductal dilation. Spleen: Size is within normal limits. Adrenal Glands: No adrenal nodules. Kidneys and Ureters: No hydronephrosis. No solid mass. No complex renal cystic lesion which requires follow up. Stomach and Bowel: Normal colonic caliber, without significant wall thickening. Peritoneum: There is a small amount of free fluid in the right perihepatic region a right para colic gutter which appears to have high density. There is also small amount of pelvic free fluid. Ventral Wall: No hernia. Abdominal Nodes: No retroperitoneal or mesenteric adenopathy by size criteria. Vessels: Aorta and inferior vena cava are normal in size. PELVIS: Pelvic Organs: Unremarkable. Bladder: Unremarkable. Pelvic Nodes: No enlarged lymph nodes. Miscellaneous: No inguinal hernias are seen. Bones: No aggressive osseous abnormality. IMPRESSION: 1. There is more confluent lung consolidation in the right lower lobe, with stable small right pleural effusion. This may be due to pneumonia, aspiration, atelectasis. 3. There is more prominent, small amount of ascites with high attenuation, may be due to hemorrhage or infection. 3. Severe hepatic steatosis. Anasarca. Stable mediastinal adenopathy, probably reactive. Dictated by: Willian Garcia M.D. on 12/08/2024 at 16:37 Approved by: Willian Garcia M.D. on 12/08/2024 at 16:44
--- NOTE | 2024-12-08 16:02 | OT.IP.TRT ---
Current Diagnoses Alcohol dependence with withdrawal, unspecified (11/27/24) Occupational Therapy Treatment Note M2 OT-IP Current Condition Start: 12/04/24 09:14 Freq: Status: Active Protocol: Document 12/04/24 09:15 [facility] (Rec: 12/04/24 09:32 [facility] Desktop) Occupational Therapy Current Condition Current Condition Evaluation Date 12/04/24 Treatment Diagnosis ETOH withdrawal, Norovirus, generalized weakness Diagnosis Onset Date 11/27/24 M3 OT- IP Subjective and Pain Start: 12/04/24 09:14 Freq: Status: Active Protocol: Document 12/08/24 15:54 [facility] (Rec: 12/08/24 16:02 [facility] [id number]) OT- Subjective Occupational Therapy Visit Type Type Treatment Note Visit Start Time 15:40 Visit Stop Time 15:50 Notes Pt nsg present on entrance of OT. Occupational Therapy Visit Comments Patient Comments Pt was very soft spoken but agreeable to therapy. 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 Comments OT ADL-Grooming General Evaluation Grooming Ability Standby Assistance Areas Needing Retrieving/Set-up of Grooming Items Assistance Comments OT Grooming Comments Able to do while standing with FWW after set-up. OT ADL-Oral Care General Eval Oral Care Ability Independent OT ADL-Dressing Comments OT Dressing Comments not performed OT ADL-Toileting Comments OT Toileting Pt not having to go at this time. Comments OT ADL-Bathing Comments OT Bathing Comments Best for pt to use a shower chair at home. M5 OT- IP IADL's Start: 12/04/24 09:14 Freq: Status: Active Protocol: Document 12/04/24 09:15 [facility] (Rec: 12/04/24 09:32 [facility] Desktop) OT-Instrumental Activities of Daily Living Home Safety Awareness Home Safety Comments Pt a bit groggy and tired. Medication Management Medication Pt would benefit from at least supervision. Management Comments Money Management Money Management Pt would benefit from at least supervision. Comments Meal Preparation Meal Preparation Pt will need assist due to decreased dynamic balance Comments and relying on FWW to walk with this time. Marble Finisher Marble Finisher Pt will need assist due to decreased dynamic balance Comments and relying on FWW to walk with this time. M6 OT- IP Functional Cognition Start: 12/04/24 09:14 Freq: Status: Active Protocol: Document 12/04/24 09:15 [facility] (Rec: 12/04/24 09:32 [facility] Desktop) Cognitive Factors Limiting Selfcare Function Cognitive Ability Level of Alertness Alert,Drowsy Patient Orientation Name,Age,Birthday,Month,Year,Place,Situation Attention Span Capable of Focused Attention,Capable of Sustained Ability Attention Ability to Follow Able to Follow One Step Commands Commands Cognitive Comments Cognitive Assessment Pt a bit drowsy but able to follow commands for ADL and Comments mobility needs. Pt will benefit from SLUMS. OT- Vision and Hearing OT- Hearing Assessment OT- Hearing WFL Assessment OT- Vision Assessment Visual Acuity WFL Visual Attentiveness WFL Occular Pursuits WFL Vision Assessment Pt able to read the clock appropriately. Comments M7 OT- IP Mobility and Balance Start: 12/04/24 09:14 Freq: Status: Active Protocol: Document 12/08/24 15:54 [facility] (Rec: 12/08/24 16:02 [facility] [id number]) OT- Bed Mobility Assessment Supine to Sit Supine to Sit Assist Standby Assistance,1 Person Assistance,Head of Bed Elevated,Bedrails Sit to Supine Sit to Supine Assist Minimal Assistance,1 Person Assistance,Head of Bed Elevated OT- Gait Assessment Comments Gait Ability Pt performed bed mobility with the intention of getting Comments EOB for BADLs or amb to sink for BADLs if able to tolerate. However, once pt was sitting EOB, someone came in to transfer him for imaging. Pt performed functional mobility very slowly but was able to perform sup>sit with SBA, pt need min A for L LE when returning to supine. OT- Balance Assessment Sitting Balance and Reactions Static Sitting Good Balance Ability Dynamic Sitting Good Balance Ability M8 OT- IP Objective Assessments Start: 12/04/24 09:14 Freq: Status: Active Protocol: Document 12/04/24 09:15 [facility] (Rec: 12/04/24 09:32 [facility] Desktop) OT Gross Range of Motion Upper Extremity Range of Motion ROM Impairments Decreased at end ROM. OT Strength Upper Extremity Strength Assessment Bilaterally Impaired Hand Cocoa Roaster Strength Hand Dominance Right Comments Strength Comments BUE 4-/5 to 4/5 to 4-/5 from proximal to distal. OT- Coordination Assessment Upper Extremity Finger to Nose Test Left UE Impaired Comments Coordination Pt needing assist for FMS to open items for grooming Comments and oral care needs. OT-Muscle Tone Assessment Comments Muscle Tone Comments Not tremoring in his BUE when trying to stand up. M9 OT- IP Assessment and Plan Start: 12/04/24 09:14 Freq: Status: Active Protocol: Document 12/08/24 15:54 [facility] (Rec: 12/08/24 16:02 [facility] [id number]) OT Summary Assessment and Plan Potential Rehabilitation Good Potential Analytic Complexity Moderate at Evaluation Summary OT Impairments Pain,Range of Motion,Strength,Balance,Functional Mobility,Self-Feeding,Grooming,Dressing,Toileting, Bathing,Toilet Transfers,Shower Transfers,Activity Tolerance Progress Towards Slow Progress due to Pain,Slow Progress due to Medical Goals Issues,Slow Progress due to Activity Tolerance Assessment Summary Pt required extra time to process information. Pt is slow to answer verbally and with physical movement. Pt was agreeable to participating in skilled OT treatment, however, treatment was cut short due to pt needing to be t/fed for imaging. Pt was left in supine with nsg and transport present. Pt would benefit from SNF vs home with 24/7 assist and HH. Goals Self-Feeding Goal Independent Grooming Goal Independent Dressing Goal Independent Toileting Goal Independent Bathing Goal Independent Toilet Transfer Goal Independent Shower Transfer Goal Independent Days to Meet Goals 10 Frequency of Treatment Other frequency 5x/week Treatment Plan OT Treatment Plan ADL Training,Functional Mobility,Patient/Family Education,Discharge Planning Other Treatment SLUMS Recommendations and shower Next Treatment Focus Discharge Recommendations OT Discharge Home vs SNF Recommendations Other Discharge inpt ETOH rehab if qualifies and able to get a little Recommendations stronger initially prior to discharge Home Equipment Needs FWW, shower chair Transportation Needs Private Vehicle at Discharge
[2024-12-08 17:55] LABS: INR 1.5 (0.9-1.3); Prothrombin Time 17.2 SECONDS (9.4-12.5)
--- NOTE | 2024-12-08 18:03 | PM.DS.1 ---
History of Present Illness History of Present Illness Chief complaint: N/V/D Narrative: From H&P: This is a 44 years old male with a history of longstanding heavy alcohol abuse who presented to the ED with generalized weakness, feeling sleepy and not eating much. His last alcoholic drink was this morning. He drinks every day. He has had diarrhea in the last week and was found to have Norovirus. He has had no fever, shortness of breath, chest pain, palpitations, nausea, vomiting, abdominal pain, diarrhea or dysuria. Denies any alcohol-related seizures in the past. His last hospitalization was 7 months ago for EtOH withdrawal. He had declined substance abuse treatment at that time but says that he is willing to go through a program now. The WBC is 20.4, H&H 12.7 and 37.3, platelets 140, sodium 116, potassium 4, bicarb 20, creatinine 0.48, INR 1.4, glucose 107, lactate 2.7, calcium 7.8, total bilirubin 11.9, AST 230, ALT 118, ammonia level 26, lipase 2928, UA negative, U tox negative, alcohol level 190. Abdominal CT scans shows marked hepatic steatosis hepatomegaly. There are also partially seen suspected enlarged lymph nodes in the lower mediastinum and gabrielle. There is mild wall thickening of the anterior urinary bladder. He was initially given IV Protonix, Zofran, ciprofloxacin, Flagyl, thiamine and fluid bolus. Overnight he required Precedex for a rising level of alcohol withdrawal agitation. His blood pressure has been in the 80-90 range systolic today so that will be stopped and we will use lorazepam instead. Discharge Providers Provider Date of admission: 11/27/24 20:37 Discharge Date: 12/08/24 Consults: 11/28/24 15:18 Consult to Dietitian, Adult Routine Comment: Reason For Exam: Alcoholic malnourishment 12/03/24 12:47 Consult to Occupational Therapy Evaluate & Treat Comment: Physician Instructions: Evaluate and treat Consult to Physical Therapy Evaluate & Treat Comment: Physician Instructions: Evaluate and Treat 12/03/24 15:43 Consult to Physical Therapy Evaluate & Treat Comment: Physician Instructions: Evaluate and Treat 12/03/24 20:11 Consult to Pharmacy Routine Comment: triggered by fall assessment 12/04/24 20:46 Consult to Pharmacy Routine Comment: protocol 12/08/24 08:28 Consult to Pharmacy Routine Comment: fall risk Discharge provider: Jared Boucher MD Summary Hospital Course Discharge Diagnosis: 1. Myasthenia gravis, active. Probable flare secondary to his norovirus and acute illness. He is now received 2 doses of prednisone as well as IV pyridostigmine x 3 doses. He has more strength in his legs, improved voice quality and volume, and is able to open his eyes wider than he could yesterday. He is feeling more jittery from the steroids. Will plan to decrease prednisone dose tomorrow to 40 mg and make that his final dose. There is no oral Mestinon on hospital formulary. Yesterday pharmacy attempted to get in touch with the patient's spouse but was unable to do so. Therefore we are continuing to use IV dosing 2. Alcohol-induced hepatitis and pancreatitis, improved. His bilirubin continues to rise and is up to 16.4 today. AST and ALT are improved. Alkaline phosphatase is stable at 308. His lipase was coming down yesterday and was 379 which was improved from prior at 787. 3. Hypokalemia, improved. Improve with repletion 4. Acute kidney injury, worsened over the last 48 hours. Concern for hepatorenal syndrome. 5. Generalized weakness, active. Likely multifactorial from his severe alcohol withdrawal with delirium that has now resolved, alcohol-induced hepatitis and pancreatitis, as well as his myasthenia gravis with flare. Continue working with therapies as able 6. Alcohol dependence, improved. Advised that we can not use clonidine given his ongoing difficulties with hypotension. However we can use hydroxyzine and vitamin-D and these have been ordered 7. Initial diarrheal illness with norovirus and resolution of diarrhea by mid hospitalization. 8. Severe worsening leukocytosis, with no clear evidence of acute infection. Initial presentation was diarrheal illness with norovirus. Hospital Course: 11/29: He has continued to experience tremulous agitation requiring lorazepam dosing several times overnight so will be put on a routine dose of Librium to decrease that need. The sodium level has stabilized at 122 with a potassium of 3.5 and a creatinine of 0.57. The total bilirubin has risen to 12.2. The AST, ALT have dropped but the alk-phos has risen slightly to 336. The lipase has dropped to 1194. His heart rate continues in the 120-130 range. 11/30: He continues to be somewhat over-sedated with the 25 mg of Librium t.i.d.. That will be decreased to 10 mg. An ammonia level will be rechecked. It was normal originally. The total bilirubin moraima again to 13.1. The AST and ALT have decreased. Alkaline phosphatase went up as did the lipase. The white blood count is 20.8 with a hemoglobin of 12.1. The sodium level is 128. He continues to be significantly tachycardic in the 140s with sinus tachycardia on telemetry. When I meet him and asked about abdominal pain he says he has ?a little bit. ? The CT scan is read as showing the steatosis/cirrhosis with a normal pancreas and a small new pleural effusion. No other significant point of infection is seen. We will add Zosyn to the azithromycin which he is on already for the Campylobacter. 12/01: He is more alert today although is still mostly mumbling. The white count is 16.8 with a hemoglobin of 11.6. The sodium is 131 with a potassium of 3.2. He will receive 40 mEq of potassium chloride orally twice a day. The AST is 114 with an ALT of 71 and an alkaline phosphatase of 290. Lipase is pending. His heart rate is now down significantly in the 100-110 range. 12/02: He is awake, alert and conversant today. He appears to have turned the corner. His heart rate has come down to just above 100. His lipase is much better at 787. The AST is 96. The ALT is 66. The alkaline phosphatase is 316 and the total bilirubin is still quite high at 13.5. The basic metabolic panel is normal. The white count remains high at 15.7 with a hemoglobin of 11.7. He is beginning to be somewhat edematous so the fluid will be stopped and he will get a small dose of Lasix. 12/03-12/04: The patient remained reasonably stable had no diarrhea. His liver functions remained stable in his bilirubin was between 13 and 15. He was quite lethargic and very weak. He declined [facility] and efforts to continue improve his strength ensued. 12/06-12/08: Patient developed acute kidney injury over the weekend with a creatinine of 4.32 as of Sunday. BUN was 35 compared to a creatinine of 2.98 and a BUN of 19 on December 07 and a creatinine of 1.38 with a BUN of 13 on December 06. He developed little or no urine output on the . He would progressive anasarca as well. Hips his potassium was 4.9 with a CO2 of 15. Bilirubin was 16.4 on December 07 AST 68, and ALT 47. Diuresis was attempted. 12/08: CT of the chest abdomen and pelvis revealed anasarca and severe steatohepatitis but minimal ascites and no other acute focal findings. Status at Discharge Cognitive/behavioral status at discharge: confused Functional status at discharge: bed bound Overall status at discharge: patient is not back to baseline Time Spent with Patient Time spent: Greater than 30 minutes Exam Vital Signs (past 8 hours): - 12/08/24 13:11 Temperature 97.3 F L Oxygen Delivery Method Room Air Oxygen Flow Rate 0 Narrative Exam Narrative: Lethargic but conversant and appropriate. He was jaundice. Lungs are clear with normal rate and effort. Heart is regular, no murmur. Abdomen is soft, distended. He was anasarca of the trunk and legs. Objective ECG Impression: Intervals Pawling Rate: 121 P: 34 VT: 136 QRS: 0 QRSD: 84 T: 40 QT: 318 QTc: 451 Interpretive Statements Sinus tachycardia Imaging Multiple studies: : Radiologist's impression: APCT 12/08: 1. There is more confluent lung consolidation in the right lower lobe, with stable small right pleural effusion. This may be due to pneumonia, aspiration, atelectasis. 3. There is more prominent, small amount of ascites with high attenuation, may be due to hemorrhage or infection. 3. Severe hepatic steatosis. Anasarca. Stable mediastinal adenopathy, probably reactive. Abdomen US 12/05: IMPRESSION: No ascites found all 4 quadrants. APCT 11/30: Mediastinal lymphadenopathy and interval development of a small right pleural effusion without jerzy pneumonia. Unchanged hepatic hypoattenuation suggestive of hepatitis versus severe hepatic steatosis. Borderline upper abdominal lymphadenopathy and worsening free abdominal fluid without focal abscess or definite enterocolitis. APCT 11/27: Marked hepatic steatosis and hepatomegaly. Mild wall thickening, possibly colitis, in the ascending colon. Colonic diverticula are seen. Nondilated appendix. Trace pelvic free fluid without drainable fluid collection. No bowel obstruction. Mild wall thickening of the anterior bladder, correlate urinalysis. Partially seen suspected enlarged lymph nodes in the lower mediastinum and gabrielle. Consider CT chest with contrast to further evaluate. CXR: Low lung volumes. No airspace consolidation or pleural effusions. Normal heart size. Degenerative osseous changes. Labs 12/08/24 12:38 12/08/24 12:38 Labs: Laboratory Results - last 24 hr 12/08/24 12/08/24 12:38 17:33 WBC 37.5 H* RBC 3.88 L Hgb 12.7 L Hct 37.9 L MCV 97.6 MCH 32.6 MCHC 33.4 RDW 18.0 H Plt Count 176 Neut % (Auto) Not Reportable Lymph % (Auto) Not Reportable [place] % (Auto) Not Reportable Eos % (Auto) Not Reportable Baso % (Auto) Not Reportable Lymph # (Auto) Not Reportable [place] # (Auto) Not Reportable Baso # (Auto) Not Reportable Total Counted 100 Seg Neutrophils % 85.0 H D Band Neutrophils % 4.0 Lymphocytes % (Manual) 9.0 L Monocytes % (Manual) 2.0 Neutrophils # (Manual) 10740 H RBC Morphology See below Anisocytosis 1+ H Target Cells 1+ H PT 17.2 H INR 1.5 H Sodium 132 L Potassium 4.9 D Chloride 104 Carbon Dioxide 15 L BUN 35 H Creatinine 4.32 H Estimated GFR 16 L BUN/Creatinine Ratio 8.1 Glucose 103 H Calcium 7.7 L PFSH Medical History Alcoholic liver disease Hepatomegaly Alcoholic pancreatitis Alcohol intoxication No significant medical problems Social History household members: significant other and children Smoking Status: Former smoker alcohol intake: current Discharge Assessment & Plan Assessment and Plan Assessment: 1. PARKER, concern for hepatorenal failure. Plan of Treatment: Patient was been accepted for transfer to [facility], I spoke with Dr. Maldonado and shared the clinical story and most recent changes and laboratories. Discharge Plan Discharge Plan Patient Disposition: [facility] Other facility: [facility] VTE Deep Vein Thrombosis/Pulmonary Embolism Present on Admission: No
[2024-12-08 18:30] VITALS: BP 117/70
[2024-12-08 18:34] LABS: Appearance Urine UA CLOUDY; Bilirubin Urine UA 3+ (NEGATIVE); Color Urine UA YELLOW; Glucose Urine UA NEGATIVE (Negative); Ketones Urine UA TRACE (NEGATIVE); Leukocyte Esterase Urine UA NEGATIVE (NEGATIVE); Nitrite Urine UA NEGATIVE (Negative); Occult Blood Urine UA 1+ (Negative); Protein Urine UA 2+ (Negative); Specific Gravity Urine UA 1.015 (1.000-1.035); Urobilinogen Urine UA 1.0 E.U./dL (0.2); pH Urine UA 5.5 (4.5-8.0)
[2024-12-08] MEDS: ALBUMIN HUMAN 25 GM/100 ML VIAL IV (18:45)
[2024-12-08 18:47] LABS: Ictotest Urine Positive (Negative)
[2024-12-08 19:15] VITALS: BP 110/66; PULSE 99; RESP 14; O2SAT 97
--- NOTE | 2024-12-08 19:32 | PC.NURSE ---
Transfer order received. Pt requested girlfriend be notified of status and transfer. Spoke with girlfriend, aware of situation and transfer time and location. Called report to RN at [facility].
--- NOTE | 2024-12-08 20:57 | PC.NURSE ---
Patient left building at 2020 with EMT transport team. A/Ox3, no distress. Stood with walker to sit on stretcher, very weak but able to bear own wt. VSS. Denies pain. Mitchell catheter patent with small dark tea color urine. Cell phone and self sealing fuel tank builder with patient. Clothes and shoes sent with S.O. Report had been call to [facility] by Deena SMALL-day shift.
== END 2024-12-08 20:20 | disposition short-term general hospital (02) | DRG 896 ==
LOC: ED 20:29 → AC 20:38 → ICU 20:58
PROVIDERS: Family Medicine; Hospitalist; Internal Medicine; Admitting Provider Internal Medicine; Emergency Provider Emergency Medicine; Referring Provider Emergency Medicine; Visit Provider Internal Medicine
DX: F10.231 Alcohol dependence with withdrawal delirium (principal); E43 Unspecified severe protein-calorie malnutrition; G70.01 Myasthenia gravis with (acute) exacerbation; K85.20 Alcohol induced acute pancreatitis without necrosis or infection; E87.1 Hypo-osmolality and hyponatremia; A08.11 Acute gastroenteropathy due to Norwalk agent; A04.5 Campylobacter enteritis; D84.9 Immunodeficiency, unspecified; N17.9 Acute kidney failure, unspecified; F10.229 Alcohol dependence with intoxication, unspecified; K52.9 Noninfective gastroenteritis and colitis, unspecified; K70.10 Alcoholic hepatitis without ascites; R00.0 Tachycardia, unspecified; R16.0 Hepatomegaly, not elsewhere classified; E87.6 Hypokalemia; T44.0X6A Underdosing of anticholinesterase agents, initial encounter; R59.0 Localized enlarged lymph nodes; R60.1 Generalized edema; R53.1 Weakness; K75.81 Nonalcoholic steatohepatitis (NASH); Y90.6 Blood alcohol level of 120-199 mg/100 ml; Z87.891 Personal history of nicotine dependence; Z91.148 Patient's other noncompliance with medication regimen for other reason; Z68.33 Body mass index [BMI] 33.0-33.9, adult
CPT/HCPCS: 36415; 71045; 71046; 71250; 71260; 74176; 74177; 76705; 80048; 80053; 80061; 80074; 80076; 80305; 80320; 81001; 82140; 82248; 82330; 83605; 83690; 83735; 83930; 83935; 84295; 84300; 84443; 84484; 85007; 85025; 85610; 87040; 87493; 87507; 87797; 93005; 96361; 96365; 96375; 97162; 97166; 97530; 99284; 99291; C8929; J0744; J1650; J1938; J2060; J2272; J2405; J2470; J2543; J2765; J3490; P9041; Q9957; Q9967